=== PATIENT | male | born 1945 | race Caucasian/White ===

== ENCOUNTER 2021-12-25 10:41 | Outpatient (REF) | payer OTHER, SELFPAY ==
[2021-12-25 11:34] LABS: D Dimer High Sensitivity 280 NG/ML
== END 2021-12-25 10:42 | disposition home or self-care (01) ==
LOC: HO.LAB 10:41
PROVIDERS: Visit Provider Family Medicine
DX: M79.671 Pain in right foot (principal); M79.89 Other specified soft tissue disorders; R60.0 Localized edema
CPT/HCPCS: 36415; 85379

== ENCOUNTER 2021-12-28 14:54 | Outpatient (REF) | payer OTHER, SELFPAY ==
--- NOTE | ~2021-12-28 | US_ITS ---
EXAMINATION: US VENOUS ULTRASOUND WITH DOPPLER LOWER EXTREMITY, RIGHT CLINICAL INFORMATION: Swelling COMPARISON: None TECHNIQUE: Ultrasound of the deep veins is performed from the hip to the calf with compression sonography and color and pulse Doppler assessment. Spectral analysis with color-flow imaging is performed. FINDINGS: There is normal venous compression and respiratory variation and augmented flow. The visualized common femoral vein, superficial femoral vein, profunda femoral vein, popliteal vein, and the trifurcation region shows no evidence of deep venous thrombosis. There is no significant popliteal fossa cyst. US/US venous duplex LE RT IMPRESSION: No DVT demonstrated in the right lower extremity.
== END 2021-12-28 14:55 | disposition home or self-care (01) ==
LOC: HO.US 14:54
PROVIDERS: Visit Provider Family Medicine
DX: M79.89 Other specified soft tissue disorders (principal)
CPT/HCPCS: 93971

== ENCOUNTER 2022-05-28 17:40 | Inpatient (IN) | payer OTHER, SELFPAY ==
--- NOTE | ~2022-05-28 | CT_ITS ---
EXAMINATION: CT ABDOMEN AND PELVIS WITHOUT CONTRAST CLINICAL INFORMATION: Upper abdominal pain. COMPARISON: None TECHNIQUE: Multidetector volumetric imaging was performed from the superior aspect of the liver through the pubic symphysis. Sagittal and coronal reformatted images were obtained on the technologist's workstation. This CT examination was performed using dose optimization techniques as appropriate, variously including the following: *Automated exposure control *Adjustment of mA and/or kV according to patient size (this includes techniques or standardized protocols for targeted exams where dose is matched to indication/reason for exam; i.e. extremities or head) *Use of iterative reconstruction technique DLP: 1219 mGy-cm FINDINGS: LUNG BASES: There is large hiatal hernia. There is bilateral posterior pleural thickening and minimal atelectatic changes. There are pacer electrodes in the right atrium and right ventricle. The heart size is normal. LIVER, GALLBLADDER, AND BILIARY TREE: The liver is normal in size, shape, and attenuation. No focal hepatic lesion or biliary ductal dilatation is present. The gallbladder is unremarkable with no evidence of radiopaque gallstones, gallbladder wall thickening, or obvious pericholecystic inflammatory changes. PANCREAS: Unremarkable. SPLEEN: Unremarkable. ADRENAL GLANDS: Unremarkable. KIDNEYS AND URETERS: The kidneys are normal in size, shape, and attenuation. No hydronephrosis, hydroureter, or calculi seen. No perinephric stranding. BLADDER: Unremarkable. GASTROINTESTINAL TRACT: There is a moderate amount of stool and scattered diverticuli in the colon without distention or diverticulitis. The small bowel loops are normal caliber. Appendix is normal caliber. No inflammatory process seen in the abdomen. There is a fluid-filled enlarged stomach with large hiatal hernia. Half of the stomach appears to be within the herniation. Described that ABDOMINAL WALL: A small infraumbilical midline hernia containing fat is noted. The neck is 1.5 cm wide. There is a large left inguinal hernia containing a loop of sigmoid/descending colon. LYMPH NODES: No abnormal size lymph nodes seen. VASCULAR: Unremarkable. PELVIC VISCERA: There is large left inguinal hernia containing a loop of bowel. There is no free fluid. No abnormal pelvic or inguinal lymph nodes. OSSEOUS STRUCTURES: No aggressive lytic or sclerotic process seen. CT/CT abdomen pelvis wo con IMPRESSION: Moderately large hiatal hernia with half of the stomach are on top of the diaphragm and the other half milligrams of the diaphragm. There is a large left inguinal hernia containing sigmoid/descending colon. Small infraumbilical midline hernia containing intraperitoneal fat. Colonic diverticulosis without diverticulitis. Fleischner guidelines were followed.
--- NOTE | ~2022-05-28 | XR_ITS ---
EXAMINATION: XR CHEST CLINICAL INFORMATION: NG tube placement confirmation COMPARISON: 05/28/2022 TECHNIQUE: Frontal view of the chest was obtained. FINDINGS: Left chest wall pacer is unchanged. Cardiac leads overlie the chest. The enteric tube has been advanced. The tip is now likely below the diaphragm with the side-port above the level of the gastroesophageal junction. The lungs are well expanded. Bilateral airspace opacities remain, greatest in the retrocardiac region. There is a known large paraesophageal hernia. No pneumothorax. No significant pleural effusion. The cardiomediastinal silhouette is unchanged, with a calcified aorta. XR/XR chest 1V IMPRESSION: Advancement of the enteric tube. Evaluation of positioning is somewhat challenging given the known anatomy with the large parapharyngeal hernia. The tip of the tube likely extends below the diaphragm with the side-port above the level of the gastroesophageal junction. Continued advancement may be considered. Similar appearance of the lungs. Bilateral opacities.
--- NOTE | ~2022-05-28 | XR_ITS ---
EXAMINATION: XR CHEST CLINICAL INFORMATION: Advanced enteric tube. COMPARISON: None TECHNIQUE: 2 Frontal views of the chest was obtained. FINDINGS: There are 2 frontal views of the chest obtained. The first frontal view reveals an enteric tube tip in the mid esophagus. The next chest x-ray reveals advanced enteric tube with its tip in mid stomach. There are pacer electrodes in right atrium and right ventricle. There is mild cardiomegaly. There is bilateral linear interstitial opacities seen throughout both lungs likely interstitial edema or pneumonitis. Moderate elevation of left hemidiaphragm. A [id number] hiatal hernia is noted. No gross bony abnormality seen. XR/XR chest 1V IMPRESSION: 1. Two (2) chest frontal images obtained. The first image reveals tip of endotracheal tube in midesophagus. The second image reveals endotracheal tube tip in the mid stomach. 2. There is bilateral increase interstitial patchy opacity suspicious of pneumonitis or edema. 3. Cardiomegaly.
--- NOTE | ~2022-05-28 | XR_ITS ---
EXAMINATION: XR CHEST CLINICAL INFORMATION: Nasogastric tube placement COMPARISON: Previous chest x-ray 05/29/2022 and abdominal and pelvic CT scan 05/29/2022 TECHNIQUE: Frontal view of the chest was obtained. FINDINGS: There is a nasogastric tube that projects over the left medial lower chest. When compared with previous chest x-ray and CT scan this is likely in the large esophageal hernia or intrathoracic stomach. There is still distention of the stomach/hernia. There is a left subclavian pacemaker AICD devices that appear unchanged. Cardiac and mediastinal contours are stable. The right lung is clear. There is atelectasis or small infiltrate at the left lung base. There are small bilateral pleural effusions, left greater than right. There are degenerative changes of the spine. XR/XR chest 1V IMPRESSION: Nasogastric tube projects over the left lower medial chest probably in the esophageal hernia or intrathoracic stomach. There is still some dilatation of the hernia. Left base atelectasis or consolidation. Small bilateral pleural effusions, left greater than right.
[2022-05-28 18:01] VITALS: BP 152/83; PULSE 94; O2SAT 98; BMI 26.4
[2022-05-28 18:09] VITALS: BP 173/90; PULSE 100; RESP 20; TEMP 36.7; O2SAT 92
--- NOTE | 2022-05-28 18:19 | ED_ITS ---
HPI - Abdominal Pain General Chief Complaint: Abdominal Pain Stated Complaint: n/v constipation Time Seen by Provider: 05/28/22 18:18 Source: patient Mode of arrival: EMS Limitations: no limitations History of Present Illness HPI narrative: Patient with no significant prior abdominal complaints history of hiatal hernia been having upper abdominal pain for 2 weeks getting worse for last 1 week associated with nausea. Patient unable to eat much because of pain been constipated, vomited few times worse today also had dark stool today after taking Pepto-Bismol. History of kidney stone at age of 26 no urinary complaints no fever or chills no abdominal distension no history of any abdominal surgeries except for left inguinal hernia Related Data Home Medications Medication Instructions Recorded Confirmed atorvastatin 80 mg tablet 1 tab PO DAILY 05/28/22 05/28/22 azathioprine 50 mg tablet 2 tab PO DAILY 05/28/22 05/28/22 gabapentin 300 mg capsule 2 cap PO TID 05/28/22 05/28/22 isosorbide mononitrate 30 mg 1 tab PO DAILY 05/28/22 05/28/22 tablet,extended release 24 hr losartan 50 mg tablet 1 tab PO DAILY 05/28/22 05/28/22 nitroglycerin 0.4 mg sublingual 1 tab sublingual Q5M PRN Chest Pain 05/28/22 05/28/22 tablet Allergies Allergy/AdvReac Type Severity Reaction Status Date / Time No Known Allergies Allergy Verified 05/28/22 18:19 Review of Systems Review of Systems Yes all other systems are reviewed and are negative PMFSH Social History Social History Patient Tobacco Use Status: Never used Tobacco Use of substances other than those prescribed or required for medical reasons: No Advance Directives: No Advance Directives Information Provided: No Physical Exam ED Vital Signs: Vital Signs - 24 hr 05/28/22 18:09 05/28/22 20:39 Temperature 98.1 F 97.6 F Pulse Rate 100 118 H Respiratory Rate 20 19 Blood Pressure 173/90 H 154/91 H Pulse Oximetry 92 97 Oxygen Delivery Method Room Air Room Air BMI result Body Mass Index 26.4 Appearance: Alert. Oriented X3. In moderate distress. Eyes: No pallor or icterus ENT: Pharynx normal. Oral Mucosa moist Neck: Normal inspection. Neck supple. CVS: Normal heart rate and rhythm. Pulses normal. Respiratory: No respiratory distress. Equal air entry bilateral, no wheezing/rales/rhonchi Abdomen: Soft, tenderness in epigastric area with guarding, no pulsatile mass no rebound tenderness, Bowel sounds are present, no mass palpable, no CVA tenderness soft nontender left inguinal hernia Rectal: Dark color stool, guaiac positive Skin: Skin warm and dry. Normal skin color. Normal skin turgor. Extremities: No lower extremity edema. No calf tenderness Neuro: Oriented X 3. No motor deficit. MDM - Abdominal Pain MDM Narrative Medical decision making narrative: Patient with upper abdominal pain noticed to have significant big hiatal hernia slide in the chest. NG tube was placed which drained 1600 cc of blood tinged gastric fluid after that patient felt much better no signs of small-bowel obstruction as such rectal examination was done noticed to have large amount of stool in rectum dark color positive for guaiac will admit patient for hiatal hernia abdominal pain and GI bleed Lab Data Attestation: I reviewed the patient's lab results. Result diagrams: 05/28/22 18:52 05/28/22 18:52 Labs: Lab Results 05/28/22 05/28/22 05/28/22 Range/Units 18:52 18:52 18:52 WBC 10.9 H (4.8-10.8) X10*3/uL RBC 4.54 L (4.60-5.80) X10*6/uL Hgb 14.7 (14.0-18.0) g/dl Hct 42.9 (42.0-52.0) % MCV 94.5 (80.0-98.0) fL MCH 32.4 (27.0-33.0) pg MCHC 34.3 (31.0-36.0) g/dl RDW 14.2 (11.0-16.0) % Plt Count 211 (160-400) X10*3/uL MPV 9.9 (9.4-12.4) fL Immature Gran % (Auto) 0.6 H (0.0-0.4) % Neut % (Auto) 89.8 H (45-73) % Lymph % (Auto) 1.9 L (20-40) % Toombs % (Auto) 7.4 (2-11) % Eos % (Auto) 0.0 (0-4) % Baso % (Auto) 0.3 (0-2) % Lymph # (Auto) 0.2 L (1.2-4.9) X10*3/uL Toombs # (Auto) 0.8 (0.1-1.2) X10*3/uL Eos # (Auto) 0.0 (0.0-0.4) X10*3/uL Baso # (Auto) 0.0 (0.0-0.2) X10*3/uL Abs Immat Gran (auto) 0.07 H (0.00-0.03) X10*3/uL Absolute Neuts (auto) 9.8 H (2.0-8.3) x10*3/uL Absolute Nucleated RBC 0.000 (0.0-0.012) X10*3/uL Nucleated RBC % (auto) 0.0 (0.0-0.2) /100WBC PT (10.0-13.1) SEC INR (0.9-1.1) Sodium 139 (135-145) mmol/L Potassium 5.6 H (3.3-5.1) mmol/L Chloride 99 (96-108) mmol/L Carbon Dioxide 24 (22-29) mmol/L Anion Gap 22 H (12-20) BUN 13 (9-16) mg/dL Creatinine 1.29 (0.5-1.4) mg/dL Estim Creat Clear Calc 52.6 Estimated GFR 54 Random Glucose 159 H (60-115) mg/dL Lactic Acid 2.1 H* (0.5-2.0) mmol/L Lactic Acid F/U @ 2Hr (0.5-2.0) mmol/L Calcium 8.7 (8.4-10.2) mg/dL Total Bilirubin 1.5 H (0.0-1.0) mg/dL AST 52 H (5-37) U/L ALT 18 (0-40) U/L Alkaline Phosphatase 90 (39-117) U/L Troponin I High Sens (<3.5-35.0) ng/L Total Protein 7.2 (6.5-8.0) g/dL Albumin 3.8 (3.5-5.0) g/dL Lipase 11 (8-78) U/L Gastric Occult Blood (NEG) Stool Occult Blood (NEGATIVE) COVID-19 (JESENIA) (Negative) COVID-19 Clin Com 05/28/22 05/28/22 05/28/22 Range/Units 18:52 18:52 18:52 WBC (4.8-10.8) X10*3/uL RBC (4.60-5.80) X10*6/uL Hgb (14.0-18.0) g/dl Hct (42.0-52.0) % MCV (80.0-98.0) fL MCH (27.0-33.0) pg MCHC (31.0-36.0) g/dl RDW (11.0-16.0) % Plt Count (160-400) X10*3/uL MPV (9.4-12.4) fL Immature Gran % (Auto) (0.0-0.4) % Neut % (Auto) (45-73) % Lymph % (Auto) (20-40) % Toombs % (Auto) (2-11) % Eos % (Auto) (0-4) % Baso % (Auto) (0-2) % Lymph # (Auto) (1.2-4.9) X10*3/uL Toombs # (Auto) (0.1-1.2) X10*3/uL Eos # (Auto) (0.0-0.4) X10*3/uL Baso # (Auto) (0.0-0.2) X10*3/uL Abs Immat Gran (auto) (0.00-0.03) X10*3/uL Absolute Neuts (auto) (2.0-8.3) x10*3/uL Absolute Nucleated RBC (0.0-0.012) X10*3/uL Nucleated RBC % (auto) (0.0-0.2) /100WBC PT 12.1 (10.0-13.1) SEC INR 1.1 (0.9-1.1) Sodium (135-145) mmol/L Potassium (3.3-5.1) mmol/L Chloride (96-108) mmol/L Carbon Dioxide (22-29) mmol/L Anion Gap (12-20) BUN (9-16) mg/dL Creatinine (0.5-1.4) mg/dL Estim Creat Clear Calc Estimated GFR Random Glucose (60-115) mg/dL Lactic Acid (0.5-2.0) mmol/L Lactic Acid F/U @ 2Hr (0.5-2.0) mmol/L Calcium (8.4-10.2) mg/dL Total Bilirubin (0.0-1.0) mg/dL AST (5-37) U/L ALT (0-40) U/L Alkaline Phosphatase (39-117) U/L Troponin I High Sens 164.6 H* (<3.5-35.0) ng/L Total Protein (6.5-8.0) g/dL Albumin (3.5-5.0) g/dL Lipase (8-78) U/L Gastric Occult Blood (NEG) Stool Occult Blood (NEGATIVE) COVID-19 (JESENIA) Negative (Negative) COVID-19 Clin Com See Note 05/28/22 05/28/22 05/28/22 Range/Units 21:24 21:24 21:34 WBC (4.8-10.8) X10*3/uL RBC (4.60-5.80) X10*6/uL Hgb (14.0-18.0) g/dl Hct (42.0-52.0) % MCV (80.0-98.0) fL MCH (27.0-33.0) pg MCHC (31.0-36.0) g/dl RDW (11.0-16.0) % Plt Count (160-400) X10*3/uL MPV (9.4-12.4) fL Immature Gran % (Auto) (0.0-0.4) % Neut % (Auto) (45-73) % Lymph % (Auto) (20-40) % Toombs % (Auto) (2-11) % Eos % (Auto) (0-4) % Baso % (Auto) (0-2) % Lymph # (Auto) (1.2-4.9) X10*3/uL Toombs # (Auto) (0.1-1.2) X10*3/uL Eos # (Auto) (0.0-0.4) X10*3/uL Baso # (Auto) (0.0-0.2) X10*3/uL Abs Immat Gran (auto) (0.00-0.03) X10*3/uL Absolute Neuts (auto) (2.0-8.3) x10*3/uL Absolute Nucleated RBC (0.0-0.012) X10*3/uL Nucleated RBC % (auto) (0.0-0.2) /100WBC PT (10.0-13.1) SEC INR (0.9-1.1) Sodium (135-145) mmol/L Potassium (3.3-5.1) mmol/L Chloride (96-108) mmol/L Carbon Dioxide (22-29) mmol/L Anion Gap (12-20) BUN (9-16) mg/dL Creatinine (0.5-1.4) mg/dL Estim Creat Clear Calc Estimated GFR Random Glucose (60-115) mg/dL Lactic Acid (0.5-2.0) mmol/L Lactic Acid F/U @ 2Hr 1.6 (0.5-2.0) mmol/L Calcium (8.4-10.2) mg/dL Total Bilirubin (0.0-1.0) mg/dL AST (5-37) U/L ALT (0-40) U/L Alkaline Phosphatase (39-117) U/L Troponin I High Sens 143.4 H* (<3.5-35.0) ng/L Total Protein (6.5-8.0) g/dL Albumin (3.5-5.0) g/dL Lipase (8-78) U/L Gastric Occult Blood (NEG) Stool Occult Blood POSITIVE (NEGATIVE) COVID-19 ([facility]IA) (Negative) COVID-19 Clin Com 05/28/22 Range/Units 21:41 WBC (4.8-10.8) X10*3/uL RBC (4.60-5.80) X10*6/uL Hgb (14.0-18.0) g/dl Hct (42.0-52.0) % MCV (80.0-98.0) fL MCH (27.0-33.0) pg MCHC (31.0-36.0) g/dl RDW (11.0-16.0) % Plt Count (160-400) X10*3/uL MPV (9.4-12.4) fL Immature Gran % (Auto) (0.0-0.4) % Neut % (Auto) (45-73) % Lymph % (Auto) (20-40) % Toombs % (Auto) (2-11) % Eos % (Auto) (0-4) % Baso % (Auto) (0-2) % Lymph # (Auto) (1.2-4.9) X10*3/uL Toombs # (Auto) (0.1-1.2) X10*3/uL Eos # (Auto) (0.0-0.4) X10*3/uL Baso # (Auto) (0.0-0.2) X10*3/uL Abs Immat Gran (auto) (0.00-0.03) X10*3/uL Absolute Neuts (auto) (2.0-8.3) x10*3/uL Absolute Nucleated RBC (0.0-0.012) X10*3/uL Nucleated RBC % (auto) (0.0-0.2) /100WBC PT (10.0-13.1) SEC INR (0.9-1.1) Sodium (135-145) mmol/L Potassium (3.3-5.1) mmol/L Chloride (96-108) mmol/L Carbon Dioxide (22-29) mmol/L Anion Gap (12-20) BUN (9-16) mg/dL Creatinine (0.5-1.4) mg/dL Estim Creat Clear Calc Estimated GFR Random Glucose (60-115) mg/dL Lactic Acid (0.5-2.0) mmol/L Lactic Acid F/U @ 2Hr (0.5-2.0) mmol/L Calcium (8.4-10.2) mg/dL Total Bilirubin (0.0-1.0) mg/dL AST (5-37) U/L ALT (0-40) U/L Alkaline Phosphatase (39-117) U/L Troponin I High Sens (<3.5-35.0) ng/L Total Protein (6.5-8.0) g/dL Albumin (3.5-5.0) g/dL Lipase (8-78) U/L Gastric Occult Blood NEGATIVE (NEG) Stool Occult Blood (NEGATIVE) COVID-19 ([facility]) (Negative) COVID-19 Clin Com ECG Data Attestation: I personally reviewed and interpreted this ECG as follows: Interpretation: Ventricularly paced rhythm 105 beats per minute no acute ST-T changes Discharge Plan Discharge Clinical Impression: Large hiatal hernia, Acute GI bleeding, Abdominal pain Patient Disposition: Admitted As Inpatient
--- NOTE | 2022-05-28 18:26 | ECG_ITS ---
Test Reason : epig pain Blood Pressure : / mmHG Vent. Rate : 105 BPM Atrial Rate : 105 BPM P-R Int : 176 ms QRS Dur : 196 ms QT Int : 368 ms P-R-T Axes : 008 -48 103 degrees QTc Int : 486 ms Atrial-sensed ventricular-paced rhythm Abnormal ECG No previous ECGs available Referred By: Hunter Garza Electronically Signed By:SARAH MARIN
[2022-05-28] MEDS: Famotidine/PF 20 MG/2 ML VIAL IVPUSH (18:37)
[2022-05-28] MEDS: ondansetron HCL 4 MG/2 ML VIAL IVPUSH (18:37)
[2022-05-28] MEDS: Morphine Sulfate 4 MG/ML CARTRIDGE IVPUSH ×2 (18:37→20:03)
[2022-05-28] MEDS: 0.9 % Sodium Chloride 1,000 ML 999 ML IV ×2 (18:38→20:04)
[2022-05-28 19:02] LABS: MANUAL DIFF FLAG NO
[2022-05-28 19:06] LABS: Basophils Percent Auto 0.3 % (0-2); Hematocrit 42.9 % (42.0-52.0); Hemoglobin 14.7 g/dl (14.0-18.0); Imm Gran Abs Auto 0.07 X10*3/uL (0.00-0.03); Imm Gran Pct Auto 0.6 % (0.0-0.4); Lymphocytes Absolute Auto 0.2 X10*3/uL (1.2-4.9); Lymphocytes Percent Auto 1.9 % (20-40); Mean Corpuscular HGB Conc 34.3 g/dl (31.0-36.0); Mean Corpuscular Hemoglobin 32.4 pg (27.0-33.0); Mean Corpuscular Volume 94.5 fL (80.0-98.0); Mean Platelet Volume 9.9 fL (9.4-12.4); Monocytes Absolute Auto 0.8 X10*3/uL (0.1-1.2); Monocytes Percent Auto 7.4 % (2-11); Neutrophils Absolute Auto 9.8 x10*3/uL (2.0-8.3); Neutrophils Percent Auto 89.8 % (45-73); Platelet Count 211 X10*3/uL (160-400); Red Blood Count 4.54 X10*6/uL (4.60-5.80); Red Cell Distribution Width 14.2 % (11.0-16.0); White Blood Count 10.9 X10*3/uL (4.8-10.8)
[2022-05-28 19:18] LABS: INTERNATIONAL NORM RATIO 1.1 (0.9-1.1); Prothrombin Time 12.1 SEC (10.0-13.1)
[2022-05-28 19:21] LABS: COVID-19 Test Negative (Negative); IDNOW Serial# 9DB6401D
[2022-05-28 19:22] LABS: Lactic Acid 2.1 mmol/L (0.5-2.0)
[2022-05-28 19:30] LABS: Alanine Aminotransferase 18 U/L (0-40); Albumin Level 3.8 g/dL (3.5-5.0); Alkaline Phosphatase 90 U/L (39-117); Anion Gap 22 (12-20); Aspartate Amino Transferase 52 U/L (5-37); Bilirubin Total 1.5 mg/dL (0.0-1.0); Blood Urea Nitrogen 13 mg/dL (9-16); Calcium 8.7 mg/dL (8.4-10.2); Carbon Dioxide 24 mmol/L (22-29); Chloride 99 mmol/L (96-108); Creatinine Clr Calc Pharmacy 52.6; Estimated Glomerular Filt Rate 54; Glucose Random 159 mg/dL (60-115); Lipase 11 U/L (8-78); Potassium 5.6 mmol/L (3.3-5.1); Sodium 139 mmol/L (135-145); Total Protein 7.2 g/dL (6.5-8.0); Troponin-I High Sensitivity 164.6 ng/L (<3.5-35.0)
[2022-05-28] MEDS: Lidocaine HCl 4 % Laryng-O-Jet 4 ML 1 APPL TOPICAL (20:04)
[2022-05-28 20:39] VITALS: BP 154/91; PULSE 118; RESP 19; TEMP 36.4; O2SAT 97
[2022-05-28 20:59] LABS: Reflex Lactate? Lactic Acid Added
[2022-05-28 21:40] LABS: ~Lactic Acid-LAB USE ONLY 1.6 mmol/L (0.5-2.0)
[2022-05-28 21:41] LABS: OBS Int Ctl Valid YES; OBS1 POSITIVE (NEGATIVE)
[2022-05-28] MEDS: Pantoprazole Sodium 40 MG/10 ML VIAL 80 MG IVPUSH (21:46)
--- NOTE | 2022-05-28 21:50 | PHA.MEDREC ---
Pharmacy Consult ? Medication Reconciliation Pharmacy has completed the medication reconciliation. Pt states that he also take methylpred but does not remember strength, could not find on pt's fill history
[2022-05-28 21:52] LABS: Troponin-I High Sensitivity 143.4 ng/L (<3.5-35.0)
[2022-05-28 21:54] LABS: GASOB Int Neg Ctl Valid YES; GASOB Int Pos Ctl Valid YES; Occult Blood Gastric NEGATIVE (NEG)
[2022-05-28 22:14] VITALS: BP 132/77; PULSE 108; O2SAT 98
--- NOTE | 2022-05-28 22:14 | P.HPHOSP_ITS ---
History of Present Illness Date of Service: 05/28/22 Chief Complaint: nausea/vomiting 76-year-old male with a past medical history of CAD, CHF with EF of 25-30% status post AICD, myasthenia gravis, obesity, paraesophageal hernia, giant inguinal hernia presented to the hospital today with a chief complaint of nause a/vomiting/abdominal pain. Patient mentions that for the past 2 weeks he has been having nausea vomiting and poor oral intake. Also complains of abdominal pain. Denies any concerns for food poisoning. Mentions that his abdominal pain is located more so in the epigastrium. Had multiple episodes of nausea and vomiting. Today he had a large coffee-ground vomitus. Denies any melena or bright red blood per rectum. New denies any chest pain, shortness of breath, fever chills, cough or urinary symptoms. Review of all other systems is negative except mentioned above ER course: Per ER team patient had large hiatal hernia; status post NG placement with draining 1600 cc of coffee-ground emesis. Guaiac positive. Hemoglobin stable. Patient stool guaiac was also positive. Also had elevated troponins. But plate you had. EKG nonischemic. Patient denied chest pain. Admitted to the hospital for further management [facility] Medical History Cardiomyopathy Pertinent family history: Son : stacy corbin Social History Household Members: None Housing: Apartment Do you presently have visiting nurse or other home services: No Patient Tobacco Use Status: Never used Tobacco service: No Current occupational status: retired Meds Allergies Allergy/AdvReac Type Severity Reaction Status Date / Time Penicillins [PCN] Allergy Unknown Verified 05/29/22 07:30 Active Medications: Current Medications Pharmacy Consult (Consult Rx Perform Med Rec) 1 each MISCELLANE ONCE PRN PRN Reason: Consult order Home Medications Medication Instructions Recorded Confirmed Last Taken Type atorvastatin 80 mg tablet 1 tab PO DAILY 05/28/22 05/28/22 05/27/22 History azathioprine 50 mg tablet 2 tab PO DAILY 05/28/22 05/28/22 05/27/22 History gabapentin 300 mg capsule 2 cap PO TID 05/28/22 05/28/22 05/27/22 History isosorbide mononitrate 30 mg 1 tab PO DAILY 05/28/22 05/28/22 05/27/22 History tablet,extended release 24 hr losartan 50 mg tablet 1 tab PO DAILY 05/28/22 05/28/22 05/27/22 History nitroglycerin 0.4 mg sublingual 1 tab sublingual Q5M PRN Chest Pain 05/28/22 05/28/22 Unknown History tablet carvedilol 12.5 mg tablet 1 tab PO BID 05/29/22 05/29/22 Unknown History clindamycin HCl 300 mg capsule 1 cap PO TID 05/29/22 05/29/22 Unknown History hydrochlorothiazide 12.5 mg capsule 1 cap PO DAILY 05/29/22 05/29/22 Unknown History pyridostigmine bromide 60 mg tablet 1 tab PO TID 05/29/22 05/29/22 Unknown History Physical Exam Vital Signs and Narrative: Vital Signs: Last Vital Signs Temp 97.6 F 05/28/22 20:39 Pulse 118 H 05/28/22 20:39 Resp 19 05/28/22 20:39 BP 154/91 H 05/28/22 20:39 Pulse Ox 97 05/28/22 20:39 O2 Del Method 05/28/22 20:39 BMI result Body Mass Index 26.4 Gen: Appears be in no acute distress HEENT: NCAT, Moist mucosa. Pulmonary: Vesicular breath sounds, fair air entry CVS: Normal S1-S2 Abdomen: BS+, Soft, mildly tender in epigastrium, no guarding no rigidity Extremities: Warm well perfused Neuro: Alert and awake. Results Labs CBC and Chem 7: 05/31/22 10:33 05/31/22 10:33 Labs: Laboratory Results - last 24 hr 05/28/22 05/28/22 05/28/22 18:52 18:52 18:52 MCV 94.5 MCH 32.4 MCHC 34.3 RDW 14.2 Plt Count 211 MPV 9.9 Immature Gran % (Auto) 0.6 H Neut % (Auto) 89.8 H Lymph % (Auto) 1.9 L Robeson % (Auto) 7.4 Eos % (Auto) 0.0 Baso % (Auto) 0.3 Lymph # (Auto) 0.2 L Robeson # (Auto) 0.8 Eos # (Auto) 0.0 Baso # (Auto) 0.0 Abs Immat Gran (auto) 0.07 H Absolute Neuts (auto) 9.8 H Absolute Nucleated RBC 0.000 Nucleated RBC % (auto) 0.0 PT INR Anion Gap 22 H Estim Creat Clear Calc 52.6 Estimated GFR 54 Random Glucose 159 H Lactic Acid 2.1 H* Lactic Acid F/U @ 2Hr Calcium 8.7 Total Bilirubin 1.5 H AST 52 H ALT 18 Alkaline Phosphatase 90 Total Protein 7.2 Albumin 3.8 Lipase 11 Gastric Occult Blood Stool Occult Blood COVID-19 ([facility]IA) [employer] 05/28/22 05/28/22 05/28/22 18:52 18:52 21:24 MCV MCH MCHC RDW Plt Count MPV Immature Gran % (Auto) Neut % (Auto) Lymph % (Auto) Robeson % (Auto) Eos % (Auto) Baso % (Auto) Lymph # (Auto) Robeson # (Auto) Eos # (Auto) Baso # (Auto) Abs Immat Gran (auto) Absolute Neuts (auto) Absolute Nucleated RBC Nucleated RBC % (auto) PT 12.1 INR 1.1 Anion Gap Estim Creat Clear Calc Estimated GFR Random Glucose Lactic Acid Lactic Acid F/U @ 2Hr 1.6 Calcium Total Bilirubin AST ALT Alkaline Phosphatase Total Protein Albumin Lipase Gastric Occult Blood Stool Occult Blood COVID-19 ([place]ENIA) Negative [employer] See Note 05/28/22 05/28/22 21:34 21:41 MCV MCH MCHC RDW Plt Count MPV Immature Gran % (Auto) Neut % (Auto) Lymph % (Auto) Robeson % (Auto) Eos % (Auto) Baso % (Auto) Lymph # (Auto) Robeson # (Auto) Eos # (Auto) Baso # (Auto) Abs Immat Gran (auto) Absolute Neuts (auto) Absolute Nucleated RBC Nucleated RBC % (auto) PT INR Anion Gap Estim Creat Clear Calc Estimated GFR Random Glucose Lactic Acid Lactic Acid F/U @ 2Hr Calcium Total Bilirubin AST ALT Alkaline Phosphatase Total Protein Albumin Lipase Gastric Occult Blood NEGATIVE Stool Occult Blood POSITIVE COVID-19 ([place]IA) [facility] [place] Imaging Radiologist's Impressions: Impressions Abdomen/Pelvis CT 05/28/22 19:35 IMPRESSION: Moderately large hiatal hernia with half of the stomach are on top of the diaphragm and the other half milligrams of the diaphragm. There is a large left inguinal hernia containing sigmoid/descending colon. Small infraumbilical midline hernia containing intraperitoneal fat. Colonic diverticulosis without diverticulitis. Fleischner guidelines were followed. Assessment and Plan (1) Acute GI bleeding: Status: Acute Plan 76-year-old male with a past medical history of CAD, CHF with EF of 25-30% status post AICD, myasthenia gravis, obesity, paraesophageal hernia, giant inguinal hernia presented to the hospital today with a chief complaint of nausea/vomiting/abdominal pain. Noted to have following conditions: Coffee-ground emesis: H and H currently stable IV PPI NPO GI consult Serial H&H Patient also stool guaiac positive (brown stool in the rectal vault with guaiac positive per ER physician) Hold home aspirin Nausea/vomiting/abdominal pain: CT abdomen showed moderate large hiatal hernia with half of the stomach around the top of the diaphragm. CT also showed large inguinal hernia containing sigmoid and descending colon. Small infraumbilical midline hernia containing intraperitoneal fat. Patient reported that he has been passing gas. Will also consult General surgery for further recommendations. Elevated troponins: Patient had recent admission to the [facility] in January for unstable angina cardiac catheterization 01/2022-> which revealed right dominant coronary ci rculation, mid distal left main stenosis, moderate proximal left circumflex stenosis, moderate diffuse LAD disease, moderate RCA disease. Troponins plateaued Patient denies any chest pain Sublingual nitroglycerin p.r.n. Continue home statin, Imdur. Aspirin on hold for now until cleared by Gastroe nterology History of CHF: EF of 25-30% status post AICD currently euvolemic. Will continue to monitor History of myasthenia gravis: Continue home Azathioprine, Pyridostigmine DVT prophylaxis: SCD boots Code status: Full code Quality Stroke Does the patient have a stroke diagnosis?: No VTE Prior VTE?: No VTE Risk Level:: Medical - moderate - high VTE Device Contraindication: N/A - Device Ordered VTE Drug Contraindication: Treatment Not Indicated
[2022-05-28] MEDS: 0.9 % Sodium Chloride 1,000 ML 50 ML IVCONT (22:36)
--- NOTE | 2022-05-28 22:39 | PC.NURSE ---
pt requesting home medication of gabapentin, pt educated that he is NPO with NG tube, and that we can give him IV medications for pain instead.
[2022-05-28] MEDS: HYDROmorphone HCl 0.5 MG/0.5 ML SYRINGE IVPUSH (23:31)
[2022-05-28 23:45] LABS: Prostate Specific Antigen 0.38 ng/mL (<0.05-4.0)
[2022-05-29 04:35] LABS: MANUAL DIFF FLAG NO
[2022-05-29 04:36] LABS: Basophils Percent Auto 0.2 % (0-2); Eosinophils Percent Auto 0.2 % (0-4); Imm Gran Abs Auto 0.05 X10*3/uL (0.00-0.03); Imm Gran Pct Auto 0.6 % (0.0-0.4); Lymphocytes Absolute Auto 0.5 X10*3/uL (1.2-4.9); Lymphocytes Percent Auto 5.8 % (20-40); Mean Corpuscular HGB Conc 33.3 g/dl (31.0-36.0); Mean Corpuscular Hemoglobin 32.1 pg (27.0-33.0); Mean Corpuscular Volume 96.3 fL (80.0-98.0); Mean Platelet Volume 9.8 fL (9.4-12.4); Monocytes Absolute Auto 1.1 X10*3/uL (0.1-1.2); Monocytes Percent Auto 11.7 % (2-11); Neutrophils Absolute Auto 7.4 x10*3/uL (2.0-8.3); Neutrophils Percent Auto 81.5 % (45-73); Platelet Count 171 X10*3/uL (160-400); Red Blood Count 3.74 X10*6/uL (4.60-5.80); Red Cell Distribution Width 14.4 % (11.0-16.0); White Blood Count 9.1 X10*3/uL (4.8-10.8)
[2022-05-29 04:55] LABS: Anion Gap 16 (12-20); Blood Urea Nitrogen 14 mg/dL (9-16); Carbon Dioxide 26 mmol/L (22-29); Chloride 102 mmol/L (96-108); Estimated Glomerular Filt Rate > 60; Glucose Random 116 mg/dL (60-115); Potassium 4.7 mmol/L (3.3-5.1); Sodium 139 mmol/L (135-145)
[2022-05-29 05:01] LABS: Calcium 7.7 mg/dL (8.4-10.2)
[2022-05-29 05:24] VITALS: BP 138/66; PULSE 90; RESP 17; TEMP 36.7; O2SAT 96
[2022-05-29 05:42] LABS: Appearance Urine Clear; Color Urine DK YELLOW; Glucose Urine UA Negative (Negative); Leukocyte Esterase Urine Negative (Negative); Nitrite Urine Negative (Negative); Urine Blood Trace (Negative); Urine Ketones Trace mg/dL (Negative); Urine Protein 30 (1+) mg/dL (Neg-Trace)
[2022-05-29 05:49] LABS: Bacteria Urine None Seen (None Seen); RBC Urine 0-2 /HPF (0-2); Squamous Epithelial Cell Urine 0-2 /HPF (0-2); WBC Urine 0-5 /HPF (0-5)
[2022-05-29 05:50] LABS: Hyaline Casts Urine 0-2 /LPF (0-2)
[2022-05-29] MEDS: Pantoprazole Sodium 40 MG/10 ML VIAL IVPUSH ×2 (05:55→18:22)
[2022-05-29] MEDS: HYDROmorphone HCl 0.5 MG/0.5 ML SYRINGE IVPUSH ×2 (05:56→14:11)
--- NOTE | 2022-05-29 06:06 | PC.NURSE ---
pt NG tube came unsecured during sleep, this RN and RN Edgar at bedside to advance tube and re-secure, MD aware, portable chest xray at bedside
--- NOTE | 2022-05-29 06:43 | PC.NURSE ---
post NG chest xray showed consider advancement, tube advanced, MD aware, per MD repeat chest xray
[2022-05-29] MEDS: 0.9 % Sodium Chloride Flush 3 ML SYRINGE IVFLUSH (07:16)
--- NOTE | 2022-05-29 07:16 | PC.NURSE ---
Handoff received. Pt is in bed alert and oriented x 3. Heart sounds are regular. Breath sounds are clear bilaterally. Breathing is equal and non labored. Abd is non tender with active bowel sounds in all quadrants. Pt expresses concerns regarding ng tube, reports throat pain. NG tube in place with 200cc output of dark brown liquid. Awaiting xray for placement confirmation. Pt aware of plan of care.
[2022-05-29 07:31] VITALS: BP 152/78; PULSE 90; RESP 13; TEMP 36.9; O2SAT 91
--- NOTE | 2022-05-29 07:59 | PM.GICN ---
History of Present Illness Data of Consult Service Date: 05/29/22 Requesting physician: Alphonse Pugh Primary Care Provider: Unknown Physician HPI Reason for consult: coffee ground emesis 76-year-old male with a past medical history of CAD, CHF with EF of 25-30% status post AICD, myasthenia gravis, obesity, paraesophageal hernia, inguinal hernia who I am seeing for assessment for coffee ground emesis. Patient has been having nausea, and emesis for 2 weeks, initially not bloody associated with poor intake. He also noted epigastric pain and discomfort which was severe but now relieved by placement of NGT with >1000 ml of fluid suctioned. He denies constipation, diarrhea, no melena. denies chest pain, shortness of breath, fever chills, cough or urinary symptoms.? He has not seen neurologist for a while, can;t recall name of his prior GI doctor at [facility]. PMH: CAD, CHF with EF of 25-30% status post AICD, myasthenia gravis, obesity, paraesophageal hernia, inguinal hernia Imaging: Large hiatal hernia, large inguinal hernia on the left, diverticulosis. Labs: HGB 14--->12 g/dl nt Review of Systems Review of Systems: Constitutional : No Weight loss, No Fever, No Chills ENT/Mouth : + sore throat, No Rhinorrhea Eyes: No Swelling, No Redness Cardiovascular : No Chest Pain, No SOB, No Edema Respiratory : No Cough, No Sputum, No Wheezing Gastrointestinal : see HPI Genitourinary : NO Dysuria, No Urinary Frequency, No Hematuria, No Urgency Musculoskeletal : No joint pain, No Myalgias, No Joint Swelling Skin : No Skin Lesions, No rash Neuro : No Weakness, No Numbness, No Dizziness, No Headache Psych : No Anxiety/Panic, No Depression Heme/Lymph: No Bruising, No Lymphadenopathy Endocrine : No Polyuria, No Polydipsia All other systems reviewed and are negative. [facility] Family History Pertinent family history: Son : stacy corbin Social History Social History Patient Tobacco Use Status: Never used Tobacco Use of substances other than those prescribed or required for medical reasons: No Advance Directives: No Advance Directives Information Provided: No Meds Allergies Allergy/AdvReac Type Severity Reaction Status Date / Time Penicillins [PCN] Allergy Unknown Verified 05/29/22 07:30 Active Medications: Current Medications Acetaminophen (Acetaminophen 325 Mg Tablet) 650 mg PO Q6H PRN PRN Reason: Pain, Mild (Pain Scale 1-3) Hydromorphone HCl (Hydromorphone Hcl 0.5 Mg/0.5 Ml Syringe) 0.5 mg IVPUSH Q4H PRN; Protocol PRN Reason: Breakthrough Pain Last Admin: 05/29/22 05:56 Dose: 0.5 mg Sodium Chloride (Ns) 1,000 mls @ 50 mls/hr IVCONT .Q20H [facility] Last Admin: 05/28/22 22:36 Dose: 50 mls/hr Melatonin (Melatonin 3 Mg Tablet) 6 mg PO BEDTIME PRN PRN Reason: Insomnia Ondansetron HCl (Ondansetron Hcl 4 Mg/2 Ml Vial) 4 mg IVPUSH Q8H PRN PRN Reason: Nausea and Vomiting Pantoprazole Sodium (Pantoprazole Sodium 40 Mg/10 Ml Vial) 40 mg IVPUSH BID@0630,1630 [facility] Last Admin: 05/29/22 05:55 Dose: 40 mg Pharmacy Consult (Consult Rx Perform Med Rec) 1 each MISCELLANE ONCE PRN PRN Reason: Consult order Senna (Sennosides 8.6 Mg Tablet) 17.2 mg PO BEDTIME PRN PRN Reason: Constipation Sodium Chloride (0.9 % Sodium Chloride Flush 3 Ml Syringe) 3 ml IVFLUSH QSHIFT [facility] Last Admin: 05/29/22 07:16 Dose: 3 ml Home Medications Medication Instructions Recorded Confirmed Last Taken Type atorvastatin 80 mg tablet 1 tab PO DAILY 05/28/22 05/28/22 05/27/22 History azathioprine 50 mg tablet 2 tab PO DAILY 05/28/22 05/28/22 05/27/22 History gabapentin 300 mg capsule 2 cap PO TID 05/28/22 05/28/22 05/27/22 History isosorbide mononitrate 30 mg 1 tab PO DAILY 05/28/22 05/28/22 05/27/22 History tablet,extended release 24 hr losartan 50 mg tablet 1 tab PO DAILY 05/28/22 05/28/22 05/27/22 History nitroglycerin 0.4 mg sublingual 1 tab sublingual Q5M PRN Chest Pain 05/28/22 05/28/22 Unknown History tablet carvedilol 12.5 mg tablet 1 tab PO BID 05/29/22 05/29/22 Unknown History clindamycin HCl 300 mg capsule 1 cap PO TID 05/29/22 05/29/22 Unknown History gabapentin 300 mg capsule cap PO 05/29/22 Unknown History gabapentin 300 mg capsule cap PO 05/29/22 Unknown History hydrochlorothiazide 12.5 mg capsule 1 cap PO DAILY 05/29/22 05/29/22 Unknown History pyridostigmine bromide 60 mg tablet 1 tab PO TID 05/29/22 05/29/22 Unknown History Physical Exam Vital Signs: Vital Signs: Last Vital Signs Temp 98.5 F 05/29/22 07:31 Pulse 90 05/29/22 07:31 Resp 13 05/29/22 07:31 BP 152/78 H 05/29/22 07:31 Pulse Ox 91 L 05/29/22 07:31 O2 Del Method 05/29/22 07:31 O2 Flow Rate 3 05/29/22 07:31 BMI result Body Mass Index 26.4 EXAM: GENERAL: The patient is dishevelled, talking easily VITAL SIGNS:see workflow HEENT: Nonicteric sclerae, PERRLA, EOMI. Oropharynx clear. Moist mucous membranes. Conjunctivae appear well perfused. No thyroid mass. CHEST: Chest wall is nontender. HEART: Regular rate and rhythm without murmurs. LUNGS: Clear to auscultation bilaterally. ABDOMEN: Soft, positive bowel sounds, mildly tender epigastrium, no organomegaly.no flank tenderness SKIN: No rash, no excessive bruising, petechiae, or purpura. NEUROLOGIC: Cranial nerves II-XII intact without motor/sensory deficit. psych: nml affect Results Labs CBC & Chem 7: 05/29/22 04:13 05/29/22 04:13 Labs: Short CBC 05/28/22 05/29/22 Range/Units 18:52 04:13 WBC 10.9 H 9.1 (4.8-10.8) X10*3/uL Hgb 14.7 12.0 L (14.0-18.0) g/dl Hct 42.9 36.0 L (42.0-52.0) % Plt Count 211 171 (160-400) X10*3/uL BMP 05/28/22 05/29/22 18:52 04:13 Sodium 139 139 Potassium 5.6 H 4.7 Chloride 99 102 Carbon Dioxide 24 26 BUN 13 14 Creatinine 1.29 0.97 Calcium 8.7 7.7 L D Liver Function 05/28/22 Range/Units 18:52 Total Bilirubin 1.5 H (0.0-1.0) mg/dL AST 52 H (5-37) U/L ALT 18 (0-40) U/L Alkaline Phosphatase 90 (39-117) U/L Albumin 3.8 (3.5-5.0) g/dL Urine 05/29/22 Range/Units 05:30 Urine Color DK YELLOW Urine Appearance Clear Urine pH 7.0 (5.0-8.0) Ur Specific [place] 1.020 (1.005-1.025) Urine Protein 30 (1+) H (Neg-Trace) mg/dL Urine Glucose (UA) Negative (Negative) mg/dL Imaging CT scan - abdomen: Attestation: I personally reviewed and interpreted this imaging study as follows: My impression: large hiatal hernia and inguinal hernia noted Assessment and Plan (1) Large hiatal hernia: Status: Acute (2) Acute GI bleeding: Status: Acute Plan 1/ Persistent nausea, vomiting, pain with large paresophageal hernia with 1600 cc of fluid aspirated. Concern is incarcerated and twisted hiatal hernia. PLAN: 1/ Recommend thoracic surgery consult today for further assessment in case needs surgical therapy 2/ would hold off on EGD, if really needs diagnostic testing then ba swallow and follow thru 3/ optimize cardiac and neurological status, given co morbidities, higher chance of surgical risk, has had plasmapharesis in past for MG. 4/ would keep on PPI e.g IV pantoprazole 40 mg BID Procedures Date of Service Date of Service: 05/29/22
[2022-05-29 10:08] VITALS: BP 140/64; PULSE 89; RESP 12; O2SAT 95
--- NOTE | 2022-05-29 10:17 | HO.PM.IMPN ---
Subjective Subjective Date of Service: 05/29/22 Interval History: Seen in f/u for abdominal pain, n/v, hiatal hernia, gib interval history: large amount of fluid return from stomach, NGT is iritating Review of Systems no abominal, no confusion Physical Exam Vital Signs: Vital Signs: Last Vital Signs Temp 98.5 F 05/29/22 07:31 Pulse 89 05/29/22 10:08 Resp 12 05/29/22 10:08 BP 140/64 H 05/29/22 10:08 Pulse Ox 95 05/29/22 10:08 O2 Del Method 05/29/22 10:08 O2 Flow Rate 3 05/29/22 10:08 BMI result Body Mass Index 26.4 Const: Other: General: AO X 3, no acute distress HEENT: NGT in with signficant drainage Resp: CTA bilateral CVS: S1,S2,RRR GI: +BS, NT, no distention Skin: No rash Neuro: motor grossly intact Psych: appropriate affect Objective Data Active Medications Acetaminophen (Acetaminophen 325 Mg Tablet) 650 mg PO Q6H PRN PRN Reason: Pain, Mild (Pain Scale 1-3) Hydromorphone HCl (Hydromorphone Hcl 0.5 Mg/0.5 Ml Syringe) 0.5 mg IVPUSH Q4H PRN; Protocol PRN Reason: Breakthrough Pain Last Admin: 05/29/22 05:56 Dose: 0.5 mg Documented By: FILEMON Sodium Chloride (Ns) 1,000 mls @ 50 mls/hr IVCONT .Q20H [facility] Last Admin: 05/28/22 22:36 Dose: 50 mls/hr Documented By: RYAN Melatonin (Melatonin 3 Mg Tablet) 6 mg PO BEDTIME PRN PRN Reason: Insomnia Ondansetron HCl (Ondansetron Hcl 4 Mg/2 Ml Vial) 4 mg IVPUSH Q8H PRN PRN Reason: Nausea and Vomiting Pantoprazole Sodium (Pantoprazole Sodium 40 Mg/10 Ml Vial) 40 mg IVPUSH BID@0630,1630 [facility] Last Admin: 05/29/22 05:55 Dose: 40 mg Documented By: FILEMON Pharmacy Consult (Consult Rx Perform Med Rec) 1 each MISCELLANE ONCE PRN PRN Reason: Consult order Senna (Sennosides 8.6 Mg Tablet) 17.2 mg PO BEDTIME PRN PRN Reason: Constipation Sodium Chloride (0.9 % Sodium Chloride Flush 3 Ml Syringe) 3 ml IVFLUSH QSHIFT [facility] Last Admin: 05/29/22 07:16 Dose: 3 ml Documented By: IVIS Labs CBC & Chem 7: 05/29/22 04:13 05/29/22 04:13 Labs: Laboratory Results - last 24 hr 05/28/22 05/28/22 05/28/22 18:52 18:52 18:52 MCV 94.5 MCH 32.4 MCHC 34.3 RDW 14.2 Plt Count 211 MPV 9.9 Immature Gran % (Auto) 0.6 H Neut % (Auto) 89.8 H Lymph % (Auto) 1.9 L [place] % (Auto) 7.4 Eos % (Auto) 0.0 Baso % (Auto) 0.3 Lymph # (Auto) 0.2 L [place] # (Auto) 0.8 Eos # (Auto) 0.0 Baso # (Auto) 0.0 Abs Immat Gran (auto) 0.07 H Absolute Neuts (auto) 9.8 H Absolute Nucleated RBC 0.000 Nucleated RBC % (auto) 0.0 PT INR Anion Gap 22 H Estim Creat Clear Calc 52.6 Estimated GFR 54 Random Glucose 159 H Lactic Acid 2.1 H* Lactic Acid F/U @ 2Hr Calcium 8.7 Total Bilirubin 1.5 H AST 52 H ALT 18 Alkaline Phosphatase 90 Total Protein 7.2 Albumin 3.8 Lipase 11 Prostate Specific Ag 0.38 Urine Color Urine Appearance Urine pH Ur Specific [place] Urine Protein Urine Glucose (UA) Urine Ketones Urine Blood Urine Nitrite Ur Leukocyte Esterase Urine RBC Urine WBC Ur Squamous Epith Cells Urine Bacteria Hyaline Casts Gastric Occult Blood Stool Occult Blood COVID-19 ([facility]) COVID-19 Clin Com 05/28/22 05/28/22 05/28/22 18:52 18:52 21:24 MCV MCH MCHC RDW Plt Count MPV Immature Gran % (Auto) Neut % (Auto) Lymph % (Auto) [place] % (Auto) Eos % (Auto) Baso % (Auto) Lymph # (Auto) [place] # (Auto) Eos # (Auto) Baso # (Auto) Abs Immat Gran (auto) Absolute Neuts (auto) Absolute Nucleated RBC Nucleated RBC % (auto) PT 12.1 INR 1.1 Anion Gap Estim Creat Clear Calc Estimated GFR Random Glucose Lactic Acid Lactic Acid F/U @ 2Hr 1.6 Calcium Total Bilirubin AST ALT Alkaline Phosphatase Total Protein Albumin Lipase Prostate Specific Ag Urine Color Urine Appearance Urine pH Ur Specific [place] Urine Protein Urine Glucose (UA) Urine Ketones Urine Blood Urine Nitrite Ur Leukocyte Esterase Urine RBC Urine WBC Ur Squamous Epith Cells Urine Bacteria Hyaline Casts Gastric Occult Blood Stool Occult Blood COVID-19 ([facility]) Negative COVID-19 Clin Com See Note 05/28/22 05/28/22 05/29/22 21:34 21:41 04:13 MCV 96.3 MCH 32.1 MCHC 33.3 RDW 14.4 Plt Count 171 MPV 9.8 Immature Gran % (Auto) 0.6 H Neut % (Auto) 81.5 H Lymph % (Auto) 5.8 L [place] % (Auto) 11.7 H Eos % (Auto) 0.2 Baso % (Auto) 0.2 Lymph # (Auto) 0.5 L [place] # (Auto) 1.1 Eos # (Auto) 0.0 Baso # (Auto) 0.0 Abs Immat Gran (auto) 0.05 H Absolute Neuts (auto) 7.4 Absolute Nucleated RBC 0.000 Nucleated RBC % (auto) 0.0 PT INR Anion Gap Estim Creat Clear Calc Estimated GFR Random Glucose Lactic Acid Lactic Acid F/U @ 2Hr Calcium Total Bilirubin AST ALT Alkaline Phosphatase Total Protein Albumin Lipase Prostate Specific Ag Urine Color Urine Appearance Urine pH Ur Specific [place] Urine Protein Urine Glucose (UA) Urine Ketones Urine Blood Urine Nitrite Ur Leukocyte Esterase Urine RBC Urine WBC Ur Squamous Epith Cells Urine Bacteria Hyaline Casts Gastric Occult Blood NEGATIVE Stool Occult Blood POSITIVE COVID-19 ([facility]) COVID-19 Clin Com 05/29/22 05/29/22 04:13 05:30 MCV MCH MCHC RDW Plt Count MPV Immature Gran % (Auto) Neut % (Auto) Lymph % (Auto) [place] % (Auto) Eos % (Auto) Baso % (Auto) Lymph # (Auto) [place] # (Auto) Eos # (Auto) Baso # (Auto) Abs Immat Gran (auto) Absolute Neuts (auto) Absolute Nucleated RBC Nucleated RBC % (auto) PT INR Anion Gap 16 Estim Creat Clear Calc 70.0 Estimated GFR > 60 Random Glucose 116 H Lactic Acid Lactic Acid F/U @ 2Hr Calcium 7.7 L D Total Bilirubin AST ALT Alkaline Phosphatase Total Protein Albumin Lipase Prostate Specific Ag Urine Color DK YELLOW Urine Appearance Clear Urine pH 7.0 Ur Specific [place] 1.020 Urine Protein 30 (1+) H Urine Glucose (UA) Negative Urine Ketones Trace Urine Blood Trace Urine Nitrite Negative Ur Leukocyte Esterase Negative Urine RBC 0-2 Urine WBC 0-5 Ur Squamous Epith Cells 0-2 Urine Bacteria None Seen Hyaline Casts 0-2 Gastric Occult Blood Stool Occult Blood COVID-19 ([facility]) COVID-19 Clin Com Assessment and Plan (1) Large hiatal hernia: Status: Acute (2) Acute GI bleeding: Status: Acute (3) Abdominal pain: Status: Acute Plan 76-year-old male with a past medical history of CAD, CHF with EF of 25-30% status post AICD, myasthenia gravis, obesity, paraesophageal hernia, giant inguinal hernia presented to the hospital today with a chief complaint of nausea/vomiting/abdominal pain.? Noted to have following conditions: Coffee-ground emesis: H and H currently stable IV PPI NPO GI consult Serial H&H Patient also stool guaiac positive (brown stool in the rectal vault with guaiac positive per ER physician) Seen by Dr. Robison with the following 1/ Recommend thoracic surgery consult today for further assessment in case needs surgical therapy 2/ would hold off on EGD, if really needs diagnostic testing then ba swallow and follow thru 3/ optimize cardiac and neurological status, given co morbidities, higher chance of surgical risk, has had plasmapharesis in past for MG. 4/ would keep on PPI e.g IV pantoprazole 40 mg BID Nausea/vomiting/abdominal pain: ???CT abdomen showed moderate large hiatal hernia with half of the stomach around the top of the diaphragm. CT also showed large inguinal hernia containing sigmoid and descending colon.? Small infraumbilical midline hernia containing intraperitoneal fat. Patient reported that he has been passing gas.? Surgery and thoracic surgery consult. continue NGT Elevated troponins:--trended down, cardiology recommends no further w/u History of Myastenia G... continue meds and consider Neuro consult History of CHF:? EF of 25-30% status post AICD currently euvolemic.? Will continue to monitor History of myasthenia gravis:? Continue home Azathioprine, Pyridostigmine ? DVT prophylaxis: SCD boots Code status: Full code Quality Stroke Does the patient have a stroke diagnosis?: No VTE Prior VTE?: No VTE Risk Level:: Medical - moderate - high VTE Device Contraindication: N/A - Device Ordered VTE Drug Contraindication: Treatment Not Indicated
--- NOTE | 2022-05-29 10:45 | P.CONCA_ITS ---
History of Present Illness History of Present Illness Date of Service: 05/29/22 Requesting physician: Luis Sidhu Chief complaint: Coffee ground emesis, elevated troponin Narrative: 76-year-old gentleman who has background history of myasthenia gravis, obesity, anterior wall myocardial infarction in July 2008 when he had bare metal stent placed followed by a subacute strength thrombosis this 2nd bare metal stent placed distally. He has dilated ventricular with ejection fraction 25 30% and has primary prevention ICD placed in 2008 with degenerative change 2015. He also has a large hiatal hernia. He had cardiac catheterization in January 2022 which showed [id number] disease in LAD, circumflex and proximal right coronary artery. He has been on baby aspirin. He is presenting with epigastric pain ongoing for couple days followed by coffee-ground emesis. He currently has an NG tube in place. His complaining of significant choking sensation. He had abdominal distension which has improved after NG decompression. No chest pain. He is saying he was short of breath but was also in a lot of pain in the abdomen. Is high sensitive troponin levels are mildly abnormal. EKG is paced. [facility] Past Medical History Medical History (Updated 05/29/22 @ 13:25 by Renny Pace MD) Cardiomyopathy Social History Social History Patient Tobacco Use Status: Never used Tobacco Use of substances other than those prescribed or required for medical reasons: No Advance Directives: No Advance Directives Information Provided: No Meds Allergies Allergy/AdvReac Type Severity Reaction Status Date / Time Penicillins [PCN] Allergy Unknown Verified 05/29/22 07:30 Active Medications: Current Medications Acetaminophen (Acetaminophen 325 Mg Tablet) 650 mg PO Q6H PRN PRN Reason: Pain, Mild (Pain Scale 1-3) Atorvastatin Calcium (Atorvastatin Calcium 80 Mg Tablet) 80 mg PO DAILY FREDY Gabapentin (Gabapentin 300 Mg Capsule) 600 mg PO TID FREDY Hydrochlorothiazide (Hydrochlorothiazide 12.5 Mg Tablet) 12.5 mg PO DAILY FREDY; Protocol Hydromorphone HCl (Hydromorphone Hcl 0.5 Mg/0.5 Ml Syringe) 0.5 mg IVPUSH Q4H PRN; Protocol PRN Reason: Breakthrough Pain Last Admin: 05/29/22 05:56 Dose: 0.5 mg Sodium Chloride (Ns) 1,000 mls @ 50 mls/hr IVCONT .Q20H [facility] Last Admin: 05/28/22 22:36 Dose: 50 mls/hr Isosorbide Mononitrate (Isosorbide Mononitrate 30 Mg Tab.Er.24h) 30 mg PO DAILY [facility]; Protocol Losartan Potassium (Losartan Potassium 50 Mg Tablet) 50 mg PO DAILY [facility]; Protocol Melatonin (Melatonin 3 Mg Tablet) 6 mg PO BEDTIME PRN PRN Reason: Insomnia Nitroglycerin (Nitroglycerin 0.4 Mg Tab.Subl) 0.4 mg SUBLINGUAL Q5M PRN PRN Reason: Chest Pain Ondansetron HCl (Ondansetron Hcl 4 Mg/2 Ml Vial) 4 mg IVPUSH Q8H PRN PRN Reason: Nausea and Vomiting Pantoprazole Sodium (Pantoprazole Sodium 40 Mg/10 Ml Vial) 40 mg IVPUSH BID@0630,1630 [facility] Last Admin: 05/29/22 05:55 Dose: 40 mg Pharmacy Consult (Consult Rx Perform Med Rec) 1 each MISCELLANE ONCE PRN PRN Reason: Consult order Pyridostigmine [place] (Pyridostigmine [place] 60 Mg Tablet) 60 mg PO TID [facility] Senna (Sennosides 8.6 Mg Tablet) 17.2 mg PO BEDTIME PRN PRN Reason: Constipation Sodium Chloride (0.9 % Sodium Chloride Flush 3 Ml Syringe) 3 ml IVFLUSH QSHIFT [facility] Last Admin: 05/29/22 07:16 Dose: 3 ml Home Medications Medication Instructions Recorded Confirmed Last Taken Type atorvastatin 80 mg tablet 1 tab PO DAILY 05/28/22 05/28/22 05/27/22 History azathioprine 50 mg tablet 2 tab PO DAILY 05/28/22 05/28/22 05/27/22 History gabapentin 300 mg capsule 2 cap PO TID 05/28/22 05/28/22 05/27/22 History isosorbide mononitrate 30 mg 1 tab PO DAILY 05/28/22 05/28/22 05/27/22 History tablet,extended release 24 hr losartan 50 mg tablet 1 tab PO DAILY 05/28/22 05/28/22 05/27/22 History nitroglycerin 0.4 mg sublingual 1 tab sublingual Q5M PRN Chest Pain 05/28/22 05/28/22 Unknown History tablet carvedilol 12.5 mg tablet 1 tab PO BID 05/29/22 05/29/22 Unknown History clindamycin HCl 300 mg capsule 1 cap PO TID 05/29/22 05/29/22 Unknown History hydrochlorothiazide 12.5 mg capsule 1 cap PO DAILY 05/29/22 05/29/22 Unknown History pyridostigmine bromide 60 mg tablet 1 tab PO TID 05/29/22 05/29/22 Unknown History Physical Exam Vital Signs: Vital Signs: Last Vital Signs Temp 98.5 F 05/29/22 07:31 Pulse 89 05/29/22 10:08 Resp 12 05/29/22 10:08 BP 140/64 H 05/29/22 10:08 Pulse Ox 95 05/29/22 10:08 O2 Del Method 05/29/22 10:08 O2 Flow Rate 3 05/29/22 10:08 BMI result Body Mass Index 26.4 GENERAL APPEARANCE: Distressed due to NG tube. NECK: no carotid bruit, no jugular venous distention. SKIN: no suspicious lesions, warm and dry. HEART: no murmurs, regular rate and rhythm. LUNGS: clear to auscultation bilaterally. ABDOMEN: soft, nontender. EXTREMITIES: no edema. PERIPHERAL PULSES: equal. NEUROLOGIC: No gross deficits, AAO X 3 Objective Labs and Meds Result diagrams: 05/29/22 04:13 05/29/22 04:13 Lab results: Laboratory Results - last 24 hr 05/28/22 05/28/22 05/28/22 18:52 18:52 18:52 WBC 10.9 H RBC 4.54 L Hgb 14.7 Hct 42.9 MCV 94.5 MCH 32.4 MCHC 34.3 RDW 14.2 Plt Count 211 MPV 9.9 Immature Gran % (Auto) 0.6 H Neut % (Auto) 89.8 H Lymph % (Auto) 1.9 L [place] % (Auto) 7.4 Eos % (Auto) 0.0 Baso % (Auto) 0.3 Lymph # (Auto) 0.2 L [place] # (Auto) 0.8 Eos # (Auto) 0.0 Baso # (Auto) 0.0 Abs Immat Gran (auto) 0.07 H Absolute Neuts (auto) 9.8 H Absolute Nucleated RBC 0.000 Nucleated RBC % (auto) 0.0 PT INR Sodium 139 Potassium 5.6 H Chloride 99 Carbon Dioxide 24 Anion Gap 22 H BUN 13 Creatinine 1.29 Estim Creat Clear Calc 52.6 Estimated GFR 54 Random Glucose 159 H Lactic Acid 2.1 H* Lactic Acid F/U @ 2Hr Calcium 8.7 Total Bilirubin 1.5 H AST 52 H ALT 18 Alkaline Phosphatase 90 Troponin I High Sens Total Protein 7.2 Albumin 3.8 Lipase 11 Prostate Specific Ag 0.38 Urine Color Urine Appearance Urine pH Ur Specific [place] Urine Protein Urine Glucose (UA) Urine Ketones Urine Blood Urine Nitrite Ur Leukocyte Esterase Urine RBC Urine WBC Ur Squamous Epith Cells Urine Bacteria Hyaline Casts Gastric Occult Blood Stool Occult Blood COVID-19 ([facility]ES[facility]IA) COVID-19 [employer] 05/28/22 05/28/22 05/28/22 18:52 18:52 18:52 WBC RBC Hgb Hct MCV MCH MCHC RDW Plt Count MPV Immature Gran % (Auto) Neut % (Auto) Lymph % (Auto) [place] % (Auto) Eos % (Auto) Baso % (Auto) Lymph # (Auto) [place] # (Auto) Eos # (Auto) Baso # (Auto) Abs Immat Gran (auto) Absolute Neuts (auto) Absolute Nucleated RBC Nucleated RBC % (auto) PT 12.1 INR 1.1 Sodium Potassium Chloride Carbon Dioxide Anion Gap BUN Creatinine Estim Creat Clear Calc Estimated GFR Random Glucose Lactic Acid Lactic Acid F/U @ 2Hr Calcium Total Bilirubin AST ALT Alkaline Phosphatase Troponin I High Sens 164.6 H* Total Protein Albumin Lipase Prostate Specific Ag Urine Color Urine Appearance Urine pH Ur Specific [place] Urine Protein Urine Glucose (UA) Urine Ketones Urine Blood Urine Nitrite Ur Leukocyte Esterase Urine RBC Urine WBC Ur Squamous Epith Cells Urine Bacteria Hyaline Casts Gastric Occult Blood Stool Occult Blood COVID-19 ([place]IA) Negative COVID-19 [employer] Com See Note 05/28/22 05/28/22 05/28/22 21:24 21:24 21:34 WBC RBC Hgb Hct MCV MCH MCHC RDW Plt Count MPV Immature Gran % (Auto) Neut % (Auto) Lymph % (Auto) [place] % (Auto) Eos % (Auto) Baso % (Auto) Lymph # (Auto) [place] # (Auto) Eos # (Auto) Baso # (Auto) Abs Immat Gran (auto) Absolute Neuts (auto) Absolute Nucleated RBC Nucleated RBC % (auto) PT INR Sodium Potassium Chloride Carbon Dioxide Anion Gap BUN Creatinine Estim Creat Clear Calc Estimated GFR Random Glucose Lactic Acid Lactic Acid F/U @ 2Hr 1.6 Calcium Total Bilirubin AST ALT Alkaline Phosphatase Troponin I High Sens 143.4 H* Total Protein Albumin Lipase Prostate Specific Ag Urine Color Urine Appearance Urine pH Ur Specific [place] Urine Protein Urine Glucose (UA) Urine Ketones Urine Blood Urine Nitrite Ur Leukocyte Esterase Urine RBC Urine WBC Ur Squamous Epith Cells Urine Bacteria Hyaline Casts Gastric Occult Blood Stool Occult Blood POSITIVE COVID-19 ([facility]) COVID-19 Clin Com 05/28/22 05/29/22 05/29/22 21:41 04:13 04:13 WBC 9.1 RBC 3.74 L Hgb 12.0 L Hct 36.0 L MCV 96.3 MCH 32.1 MCHC 33.3 RDW 14.4 Plt Count 171 MPV 9.8 Immature Gran % (Auto) 0.6 H Neut % (Auto) 81.5 H Lymph % (Auto) 5.8 L [place] % (Auto) 11.7 H Eos % (Auto) 0.2 Baso % (Auto) 0.2 Lymph # (Auto) 0.5 L [place] # (Auto) 1.1 Eos # (Auto) 0.0 Baso # (Auto) 0.0 Abs Immat Gran (auto) 0.05 H Absolute Neuts (auto) 7.4 Absolute Nucleated RBC 0.000 Nucleated RBC % (auto) 0.0 PT INR Sodium 139 Potassium 4.7 Chloride 102 Carbon Dioxide 26 Anion Gap 16 BUN 14 Creatinine 0.97 Estim Creat Clear Calc 70.0 Estimated GFR > 60 Random Glucose 116 H Lactic Acid Lactic Acid F/U @ 2Hr Calcium 7.7 L D Total Bilirubin AST ALT Alkaline Phosphatase Troponin I High Sens Total Protein Albumin Lipase Prostate Specific Ag Urine Color Urine Appearance Urine pH Ur Specific [place] Urine Protein Urine Glucose (UA) Urine Ketones Urine Blood Urine Nitrite Ur Leukocyte Esterase Urine RBC Urine WBC Ur Squamous Epith Cells Urine Bacteria Hyaline Casts Gastric Occult Blood NEGATIVE Stool Occult Blood COVID-19 ([facility]IA) COVID-19 Clin Com 05/29/22 05:30 WBC RBC Hgb Hct MCV MCH MCHC RDW Plt Count MPV Immature Gran % (Auto) Neut % (Auto) Lymph % (Auto) [place] % (Auto) Eos % (Auto) Baso % (Auto) Lymph # (Auto) [place] # (Auto) Eos # (Auto) Baso # (Auto) Abs Immat Gran (auto) Absolute Neuts (auto) Absolute Nucleated RBC Nucleated RBC % (auto) PT INR Sodium Potassium Chloride Carbon Dioxide Anion Gap BUN Creatinine Estim Creat Clear Calc Estimated GFR Random Glucose Lactic Acid Lactic Acid F/U @ 2Hr Calcium Total Bilirubin AST ALT Alkaline Phosphatase Troponin I High Sens Total Protein Albumin Lipase Prostate Specific Ag Urine Color DK YELLOW Urine Appearance Clear Urine pH 7.0 Ur Specific [place] 1.020 Urine Protein 30 (1+) H Urine Glucose (UA) Negative Urine Ketones Trace Urine Blood Trace Urine Nitrite Negative Ur Leukocyte Esterase Negative Urine RBC 0-2 Urine WBC 0-5 Ur Squamous Epith Cells 0-2 Urine Bacteria None Seen Hyaline Casts 0-2 Gastric Occult Blood Stool Occult Blood COVID-19 ([facility]) COVID-19 Clin Com Imaging Radiologist's impression: Impressions Abdomen/Pelvis CT 05/28/22 19:35 IMPRESSION: Moderately large hiatal hernia with half of the stomach are on top of the diaphragm and the other half milligrams of the diaphragm. There is a large left inguinal hernia containing sigmoid/descending colon. Small infraumbilical midline hernia containing intraperitoneal fat. Colonic diverticulosis without diverticulitis. Fleischner guidelines were followed. Chest X-Ray 05/29/22 06:00 IMPRESSION: Advancement of the enteric tube. Evaluation of positioning is somewhat challenging given the known anatomy with the large parapharyngeal hernia. The tip of the tube likely extends below the diaphragm with the side-port above the level of the gastroesophageal junction. Continued advancement may be considered. Similar appearance of the lungs. Bilateral opacities. Assessment and Plan (1) Elevated troponin: Status: Acute (2) Cardiomyopathy: Status: Acute Plan 76-year-old gentleman with known coronary disease with previous anterior wall [place] complicated by subacute stent thrombosis and ischemic cardiomyopathy with EF 25 30% status post primary prevention ICD. He is presenting for abdominal pain and coffee-ground emesis. He has mildly abnormal troponin levels. He has no chest pain or shortness of breath otherwise. Clinically not in heart failure. Troponins are very mildly elevated and are potentially related to do month supply mismatch. I do not think he has true acute coronary syndrome. Aspirin can be held then he can have endoscopy with intermediate risk for periprocedural complications. Clinically compensated. Thank you for allowing me to participate in the care of your patient. Please feel free to contact me if you have any questions. Procedures Date of Service Date of Service: 05/29/22
--- NOTE | 2022-05-29 11:15 | PM.CNGS ---
History of Present Illness Consult details Consult date: 05/29/22 <MADAY Patrick - Last Filed: 05/30/22 12:14> Narrative: Mr. Mendoza is a 76 year old male with a PMHx of CAD, CHF EF 25-30%, s/p AICD placement who presented to the ER last night with complaints of of abdominal pain, nausea, retching, and inability to tolerate PO. States he began having these symptoms about 2 weeks ago which prompted him to decrease his oral intake which helped some. He said he was able to eat an actual meal on Friday, however Friday night he had a recurrence of his symptoms and felt very unwell therefore came in to the hospital for evaluation. While in the ER he had a CT abdomen/pelvis which showed a large hiatal hernia which was dilated with significant amount of debris within the stomach above and below the diaphragm. Patient was seen by GI and had an NGT placed which was definitely needed for this patient. NGT has since returned about 1600cc of brown liquid with some coffee ground material. He also has had some issues with constipation recently and noted he required some manual disimpaction recently that was black . States since the NGT was placed he feels much improved. Currently denies any nausea or abdominal pain. Denies any previous episodes of similar symptoms. States he has known about his hiatal hernia for many years and never had any issues other than some acid reflux in the past. Of note, states he had some symptoms of a heart attack about 5 weeks ago and was evaluated at [facility] for this. States he was told he did not have an actual heart attack at that time. Has an outpatient obstetrician gynecologist with [facility] for his significant cardiac comorbidities. <MADAY Patrick - Last Filed: 05/30/22 12:14> Review of Systems Constitutional: Constitutional: Denies fever(s), Denies headache(s), Denies night sweats, Reports poor appetite (recently due to abdominal symptoms) and Denies weakness <MADAY Patrick - Last Filed: 05/30/22 12:14> Eyes: Eyes: Denies loss of vision <MADAY Patrick - Last Filed: 05/30/22 12:14> ENT: Denies dysphagia, Denies headache(s), Denies odynophagia and Denies other (dysphagia) <MADAY Patrick - Last Filed: 05/30/22 12:14> Cardiovascular: Cardiovascular: Denies chest pain, Denies pedal edema, Denies leg edema, Denies lightheadedness and Denies dyspnea <MADAY Patrick - Last Filed: 05/30/22 12:14> Respiratory: Respiratory: Reports cough, Denies hemoptysis, Denies dyspnea and Denies wheezing <MADAY Patrick - Last Filed: 05/30/22 12:14> Gastrointestinal: Gastrointestinal: Reports abdominal pain, Reports melena, Denies bloating, Denies hematochezia, Reports coffee ground emesis, Reports constipation, Denies GI cramping, Denies dysphagia, Denies excessive flatus, Denies heartburn, Reports nausea and Denies odynophagia <MADAY Patrick - Last Filed: 05/30/22 12:14> Musculoskeletal: Musculoskeletal: Denies numbness and Denies tingling <MADAY Patrick - Last Filed: 05/30/22 12:14> Neurologic: Reports burning sensations (chronic, right foot), Denies headache(s), Denies loss of vision, Denies numbness, Denies tingling and Denies weakness <MADAY Patrick - Last Filed: 05/30/22 12:14> Hematologic/Lymphatic: Hematologic/Lymphatic: Denies easy bleeding and Denies lymphadenopathy <MADAY Patrick - Last Filed: 05/30/22 12:14> Allergic/Immunologic: Allergic/Immunologic: Denies wheezing <MADAY Patrick - Last Filed: 05/30/22 12:14> [facility] Past Medical History Medical History: Medical History (Updated 05/29/22 @ 13:25 by Renny Pace MD) Cardiomyopathy <MADAY Patrick - Last Filed: 05/30/22 12:14> Social History Social History: Social History Household Members: None Housing: Apartment Do you presently have visiting nurse or other home services: No Patient Tobacco Use Status: Never used Tobacco service: No Current occupational status: retired <MADAY Patrick - Last Filed: 05/30/22 12:14> Meds Allergies/Adverse reactions: Allergies Allergy/AdvReac Type Severity Reaction Status Date / Time Penicillins [PCN] Allergy Unknown Verified 05/29/22 07:30 <MADAY Patrick - Last Filed: 05/30/22 12:14> Active Medications: Current Medications Acetaminophen (Acetaminophen 325 Mg Tablet) 650 mg PO Q6H PRN PRN Reason: Pain, Mild (Pain Scale 1-3) Atorvastatin Calcium (Atorvastatin Calcium 80 Mg Tablet) 80 mg PO DAILY [facility] Gabapentin (Gabapentin 300 Mg Capsule) 600 mg PO TID [facility] Hydrochlorothiazide (Hydrochlorothiazide 12.5 Mg Tablet) 12.5 mg PO DAILY [facility]; Protocol Hydromorphone HCl (Hydromorphone Hcl 0.5 Mg/0.5 Ml Syringe) 0.5 mg IVPUSH Q4H PRN; Protocol PRN Reason: Breakthrough Pain Last Admin: 05/29/22 05:56 Dose: 0.5 mg Sodium Chloride (Ns) 1,000 mls @ 50 mls/hr IVCONT .Q20H [facility] Last Admin: 05/28/22 22:36 Dose: 50 mls/hr Isosorbide Mononitrate (Isosorbide Mononitrate 30 Mg Tab.Er.24h) 30 mg PO DAILY [facility]; Protocol Losartan Potassium (Losartan Potassium 50 Mg Tablet) 50 mg PO DAILY [facility]; Protocol Melatonin (Melatonin 3 Mg Tablet) 6 mg PO BEDTIME PRN PRN Reason: Insomnia Nitroglycerin (Nitroglycerin 0.4 Mg Tab.Subl) 0.4 mg SUBLINGUAL Q5M PRN PRN Reason: Chest Pain Ondansetron HCl (Ondansetron Hcl 4 Mg/2 Ml Vial) 4 mg IVPUSH Q8H PRN PRN Reason: Nausea and Vomiting Pantoprazole Sodium (Pantoprazole Sodium 40 Mg/10 Ml Vial) 40 mg IVPUSH BID@0630,1630 [facility] Last Admin: 05/29/22 05:55 Dose: 40 mg Pharmacy Consult (Consult Rx Perform Med Rec) 1 each MISCELLANE ONCE PRN PRN Reason: Consult order Pyridostigmine [place] (Pyridostigmine [place] 60 Mg Tablet) 60 mg PO TID [facility] Senna (Sennosides 8.6 Mg Tablet) 17.2 mg PO BEDTIME PRN PRN Reason: Constipation Sodium Chloride (0.9 % Sodium Chloride Flush 3 Ml Syringe) 3 ml IVFLUSH QSHIFT [facility] Last Admin: 05/29/22 07:16 Dose: 3 ml <MADAY Patrick - Last Filed: 05/30/22 12:14> Home medications: Home Medications Medication Instructions Recorded Confirmed Last Taken Type atorvastatin 80 mg tablet 1 tab PO DAILY 05/28/22 05/28/22 05/27/22 History azathioprine 50 mg tablet 2 tab PO DAILY 05/28/22 05/28/22 05/27/22 History gabapentin 300 mg capsule 2 cap PO TID 05/28/22 05/28/22 05/27/22 History isosorbide mononitrate 30 mg 1 tab PO DAILY 05/28/22 05/28/22 05/27/22 History tablet,extended release 24 hr losartan 50 mg tablet 1 tab PO DAILY 05/28/22 05/28/22 05/27/22 History nitroglycerin 0.4 mg sublingual 1 tab sublingual Q5M PRN Chest Pain 05/28/22 05/28/22 Unknown History tablet carvedilol 12.5 mg tablet 1 tab PO BID 05/29/22 05/29/22 Unknown History clindamycin HCl 300 mg capsule 1 cap PO TID 05/29/22 05/29/22 Unknown History hydrochlorothiazide 12.5 mg capsule 1 cap PO DAILY 05/29/22 05/29/22 Unknown History pyridostigmine bromide 60 mg tablet 1 tab PO TID 05/29/22 05/29/22 Unknown History <MADAY Patrick - Last Filed: 05/30/22 12:14> Physical Exam Vital Signs: Vital Signs: Last Vital Signs Temp 98.5 F 05/29/22 07:31 Pulse 89 05/29/22 10:08 Resp 12 05/29/22 10:08 BP 140/64 H 05/29/22 10:08 Pulse Ox 95 05/29/22 10:08 O2 Del Method 05/29/22 10:08 O2 Flow Rate 3 05/29/22 10:08 BMI result Body Mass Index 26.4 <MADAY Patrick - Last Filed: 05/30/22 12:14> General: No acute distress, resting comfortably in bed, well developed Head: Normocephalic, atraumatic, symmetric Eyes: Sclera anicteric, eyelids without edema or erythema, +EOMS intact ENT: Oral mucosa and tongue are moist. NGT in place with dark brown drainage. Neck: Soft, supple, symmetric, trachea midline, no crepitus Cardiovascular: Regular rate and rhythm, no murmur/rubs/gallops, BUE and BLE without edema, no calf tenderness bilaterally Respiratory: Lungs CTA B, breathing nonlabored, speaking in full sentences, on room air. No use of accessory muscles. Gastrointestinal: Soft, non-tender, non-distended, +normoactive bowel sounds. Skin: Warm and dry throughout, no rashes Lymphatic: no cervical, supraclavicular, infraclavicular lymphadenopathy noted Neurological: Alert and oriented x 3, no focal neurological deficit noted Psychiatric:no agitation, appropriate affect <MADAY Patrick - Last Filed: 05/30/22 12:14> Results Labs Result diagrams: : 05/30/22 08:02 05/30/22 08:02 <MADAY Patrick - Last Filed: 05/30/22 12:14> Labs: Abnormal lab results 05/28/22 05/28/22 05/28/22 Range/Units 18:52 18:52 18:52 WBC 10.9 H (4.8-10.8) X10*3/uL RBC 4.54 L (4.60-5.80) X10*6/uL Hgb (14.0-18.0) g/dl Hct (42.0-52.0) % Immature Gran % (Auto) 0.6 H (0.0-0.4) % Neut % (Auto) 89.8 H (45-73) % Lymph % (Auto) 1.9 L (20-40) % [place] % (Auto) (2-11) % Lymph # (Auto) 0.2 L (1.2-4.9) X10*3/uL Abs Immat Gran (auto) 0.07 H (0.00-0.03) X10*3/uL Absolute Neuts (auto) 9.8 H (2.0-8.3) x10*3/uL Potassium 5.6 H (3.3-5.1) mmol/L Anion Gap 22 H (12-20) Random Glucose 159 H (60-115) mg/dL Lactic Acid 2.1 H* (0.5-2.0) mmol/L Calcium (8.4-10.2) mg/dL Total Bilirubin 1.5 H (0.0-1.0) mg/dL AST 52 H (5-37) U/L Troponin I High Sens (<3.5-35.0) ng/L Urine Protein (Neg-Trace) mg/dL 05/28/22 05/28/22 05/29/22 Range/Units 18:52 21:24 04:13 WBC (4.8-10.8) X10*3/uL RBC 3.74 L (4.60-5.80) X10*6/uL Hgb 12.0 L (14.0-18.0) g/dl Hct 36.0 L (42.0-52.0) % Immature Gran % (Auto) 0.6 H (0.0-0.4) % Neut % (Auto) 81.5 H (45-73) % Lymph % (Auto) 5.8 L (20-40) % [place] % (Auto) 11.7 H (2-11) % Lymph # (Auto) 0.5 L (1.2-4.9) X10*3/uL Abs Immat Gran (auto) 0.05 H (0.00-0.03) X10*3/uL Absolute Neuts (auto) (2.0-8.3) x10*3/uL Potassium (3.3-5.1) mmol/L Anion Gap (12-20) Random Glucose (60-115) mg/dL Lactic Acid (0.5-2.0) mmol/L Calcium (8.4-10.2) mg/dL Total Bilirubin (0.0-1.0) mg/dL AST (5-37) U/L Troponin I High Sens 164.6 H* 143.4 H* (<3.5-35.0) ng/L Urine Protein (Neg-Trace) mg/dL 05/29/22 05/29/22 Range/Units 04:13 05:30 WBC (4.8-10.8) X10*3/uL RBC (4.60-5.80) X10*6/uL Hgb (14.0-18.0) g/dl Hct (42.0-52.0) % Immature Gran % (Auto) (0.0-0.4) % Neut % (Auto) (45-73) % Lymph % (Auto) (20-40) % [place] % (Auto) (2-11) % Lymph # (Auto) (1.2-4.9) X10*3/uL Abs Immat Gran (auto) (0.00-0.03) X10*3/uL Absolute Neuts (auto) (2.0-8.3) x10*3/uL Potassium (3.3-5.1) mmol/L Anion Gap (12-20) Random Glucose 116 H (60-115) mg/dL Lactic Acid (0.5-2.0) mmol/L Calcium 7.7 L D (8.4-10.2) mg/dL Total Bilirubin (0.0-1.0) mg/dL AST (5-37) U/L Troponin I High Sens (<3.5-35.0) ng/L Urine Protein 30 (1+) H (Neg-Trace) mg/dL Short CBC 05/28/22 05/29/22 Range/Units 18:52 04:13 WBC 10.9 H 9.1 (4.8-10.8) X10*3/uL Hgb 14.7 12.0 L (14.0-18.0) g/dl Hct 42.9 36.0 L (42.0-52.0) % Plt Count 211 171 (160-400) X10*3/uL BMP 05/28/22 05/29/22 18:52 04:13 Sodium 139 139 Potassium 5.6 H 4.7 Chloride 99 102 Carbon Dioxide 24 26 BUN 13 14 Creatinine 1.29 0.97 Calcium 8.7 7.7 L D Liver Function 05/28/22 Range/Units 18:52 Total Bilirubin 1.5 H (0.0-1.0) mg/dL AST 52 H (5-37) U/L ALT 18 (0-40) U/L Alkaline Phosphatase 90 (39-117) U/L Albumin 3.8 (3.5-5.0) g/dL Urine 05/29/22 Range/Units 05:30 Urine Color DK YELLOW Urine Appearance Clear Urine pH 7.0 (5.0-8.0) Ur Specific [place] 1.020 (1.005-1.025) Urine Protein 30 (1+) H (Neg-Trace) mg/dL Urine Glucose (UA) Negative (Negative) mg/dL All other labs normal. <MADAY Patrick - Last Filed: 05/30/22 12:14> Imaging Additional studies: CT Scan Report Signed Patient: Antwan Mendoza Ordering Physician: Hunter Garza MD Date of Service: 05/28/22 Procedure(s): CT abdomen pelvis wo con Accession Number(s): [id number] cc: Hunter Garza MD~ EXAMINATION: CT ABDOMEN AND PELVIS WITHOUT CONTRAST? CLINICAL INFORMATION: Upper abdominal pain.? COMPARISON: None? TECHNIQUE: Multidetector volumetric imaging was performed from the superior aspect of the liver through the pubic symphysis. Sagittal and coronal reformatted images were obtained on the technologist's workstation.? This CT examination was performed using dose optimization techniques as appropriate, variously including the following: *Automated exposure control *Adjustment of mA and/or kV according to patient size (this includes techniques or standardized protocols for targeted exams where dose is matched to indication/reason for exam; i.e. extremities or head) *Use of iterative reconstruction technique DLP: 1219 mGy-cm FINDINGS: LUNG BASES: There is large hiatal hernia. There is bilateral posterior pleural thickening and minimal atelectatic changes. There are pacer electrodes in the right atrium and right ventricle. The heart size is normal.? LIVER, GALLBLADDER, AND BILIARY TREE: The liver is normal in size, shape, and attenuation. No focal hepatic lesion or biliary ductal dilatation is present. The gallbladder is unremarkable with no evidence of radiopaque gallstones, gallbladder wall thickening, or obvious pericholecystic inflammatory changes.? PANCREAS: Unremarkable.? SPLEEN: Unremarkable.? ADRENAL GLANDS: Unremarkable.? KIDNEYS AND URETERS: The kidneys are normal in size, shape, and attenuation. No hydronephrosis, hydroureter, or calculi seen. No perinephric stranding. ? BLADDER: Unremarkable.? GASTROINTESTINAL TRACT: There is a moderate amount of stool and scattered diverticuli in the colon without distention or diverticulitis. The small bowel loops are normal caliber. Appendix is normal caliber. No inflammatory process seen in the abdomen. There is a fluid-filled enlarged stomach with large hiatal hernia. Half of the stomach appears to be within the herniation. Described that ABDOMINAL WALL: A small infraumbilical midline hernia containing fat is noted. The neck is 1.5 cm wide. There is a large left inguinal hernia containing a loop of sigmoid/descending colon. LYMPH NODES: No abnormal size lymph nodes seen. VASCULAR: Unremarkable. PELVIC VISCERA: There is large left inguinal hernia containing a loop of bowel. There is no free fluid. No abnormal pelvic or inguinal lymph nodes.? OSSEOUS STRUCTURES: No aggressive lytic or sclerotic process seen.? CT/CT abdomen pelvis wo con IMPRESSION: Moderately large hiatal hernia with half of the stomach are on top of the diaphragm and the other half milligrams of the diaphragm. ? There is a large left inguinal hernia containing sigmoid/descending colon. Small infraumbilical midline hernia containing intraperitoneal fat. ? Colonic diverticulosis without diverticulitis.? ? Fleischner guidelines were followed. <MADAY Patrick - Last Filed: 05/30/22 12:14> Assessment and Plan (1) Large hiatal hernia: Status: Acute <MADAY Patrick - Last Filed: 05/30/22 12:14> Mr. Mendoza is a 76 year old male who presented with an approximately 2 week history of abdominal pain, nausea, retching, and the inability to tolerate much PO. Found to have a large hiatal hernia with dilation of the stomach above and below the diaphragm. Agree with NGT insertion. Should keep that in place for another 24-48 hours at least. Will likely need a clamp trial prior to removal - possibly Friday. Keep strictly NPO for now. Once NGT no longer needed will plan to start clear liquid diet (no straws, no carbonated beverages) for ~2days. If tolerates this patient will likely not require any surgical intervention this admission and can be discharged on a full liquid diet with instructions to increase to a soft diet in about a week. If discharged, patient will followup with Dr. Babin as an outpatient to discuss surgical repair on an elective basis. If patient cannot tolerate NGT removal or PO intake he will need hernia repair this admission. Thank you for the consultation. Case discussed with Dr. Babin. We will follow along with you. I spent more than half of the 70 minute required to evaluate this patient ( 40 minutes ) including physical exam, obtaining history, reviewing imaging and all other diagnostics. To add to this I reviewed older imaging from [facility]. There is a cxr from 01/2022 that shows a large hiatal hernia. There is a CT scan from 2016 that also shows a large paraesophageal hernia with the whole stomach in the chest mostly to the left. In [address] chest that shows a small hiatal hernia only with omental fat. Goal of management is to decompress the stomach and eventually get him to the point where he can tolerate liquids in a few days. Ideally we can cool him off in this way and get him discharged so that he can be evaluated for surgical repair on an elective basis as an outpatient. <MADAY Patrick - Last Filed: 05/30/22 12:14> I spent more than half of the 70 minute required to evaluate this patient ( 40 minutes ) including physical exam, obtaining history, reviewing imaging and all other diagnostics. To add to this I reviewed older imaging from [facility]. There is a cxr from 01/2022 that shows a large hiatal hernia. There is a CT scan from 2016 that also shows a large paraesophageal hernia with the whole stomach in the chest mostly to the left. In [address] chest that shows a small hiatal hernia only with omental fat. Goal of management is to decompress the stomach and eventually get him to the point where he can tolerate liquids in a few days. Ideally we can cool him off in this way and get him discharged so that he can be evaluated for surgical repair on an elective basis as an outpatient. <Arian Babin MD - Last Filed: 05/29/22 14:44> (2) Acute GI bleeding: Status: Acute <MADAY Patrick - Last Filed: 05/30/22 12:14> (3) Abdominal pain: Status: Acute <MADAY Patrick - Last Filed: 05/30/22 12:14> Procedures Date of Service Date of Service: 05/29/22 <MADAY Patrick - Last Filed: 05/30/22 12:14>
[2022-05-29] MEDS: Lidocaine HCl Viscous 2 % 15 ML SOLUTION MUCOUS MEM (14:11)
--- NOTE | 2022-05-29 14:12 | MHC.CM.PN ---
IMM addressed, white copy to patient at bedside, yellow to file in chart. Patient reports he lives alone and is independent at home and community. He denies any DME or receiving home services. He is Covid vax'd x3 (MRNA), HCP-copy requested, PCP: Ron De La Cruzon, Son will transport. D/C Plan: Home self-care vs Home with [facility]
[2022-05-29 14:27] VITALS: BP 137/69; PULSE 93; RESP 12; O2SAT 94
--- NOTE | 2022-05-29 16:23 | PC.NURSE ---
R forearm IV line displaced with pt movement. No redness or swelling noted on the IV site. RN to RN report given to Xiao, as pt will be transported to [facility].
[2022-05-29] MEDS: Gabapentin 300 MG CAPSULE 600 MG PO ×2 (16:26→21:51)
[2022-05-29 16:54] VITALS: BP 154/79; PULSE 99; RESP 18; TEMP 36.7; O2SAT 98
[2022-05-29] MEDS: 0.9 % Sodium Chloride 1,000 ML 50 ML IVCONT (18:22)
--- NOTE | 2022-05-29 19:15 | PC.NURSE ---
Assumed care of patient at this time.
[2022-05-29 20:02] VITALS: BP 110/71; PULSE 87; RESP 16; TEMP 37.1; O2SAT 98
--- NOTE | 2022-05-29 21:51 | PC.NURSE ---
NG suction paused at this time due to medication given
--- NOTE | 2022-05-29 22:41 | PC.NURSE ---
Suction hooked back up to patient's NG tube. Provided patient with cool cloth to wipe face per his request.
[2022-05-30] VITALS (7 sets, daily range): BP systolic 110–138; BP diastolic 56–64; PULSE 65–91; RESP 16–20; TEMP 36.1–37.6; O2SAT 91–100
[2022-05-30] MEDS: 0.9 % Sodium Chloride 1,000 ML 50 ML IVCONT (03:07)
[2022-05-30] MEDS: Pantoprazole Sodium 40 MG/10 ML VIAL IVPUSH ×2 (07:04→16:13)
[2022-05-30] MEDS: Losartan Potassium 50 MG TABLET PO (07:55)
[2022-05-30] MEDS: Atorvastatin Calcium 80 MG TABLET PO (07:55)
[2022-05-30] MEDS: Isosorbide Mononitrate 30 MG TAB.ER.24H PO (07:55)
[2022-05-30] MEDS: Gabapentin 300 MG CAPSULE 600 MG PO ×3 (07:56→20:28)
[2022-05-30 08:16] LABS: Hematocrit 34.7 % (42.0-52.0); Hemoglobin 11.7 g/dl (14.0-18.0); Mean Corpuscular HGB Conc 33.7 g/dl (31.0-36.0); Mean Corpuscular Hemoglobin 32.3 pg (27.0-33.0); Mean Corpuscular Volume 95.9 fL (80.0-98.0); Mean Platelet Volume 9.8 fL (9.4-12.4); Platelet Count 165 X10*3/uL (160-400); Red Blood Count 3.62 X10*6/uL (4.60-5.80); Red Cell Distribution Width 14.2 % (11.0-16.0); White Blood Count 8.5 X10*3/uL (4.8-10.8)
[2022-05-30 08:26] LABS: Anion Gap 15 (12-20); Blood Urea Nitrogen 16 mg/dL (9-16); Calcium 7.8 mg/dL (8.4-10.2); Carbon Dioxide 28 mmol/L (22-29); Chloride 102 mmol/L (96-108); Creatinine Clr Calc Pharmacy 70.8; Estimated Glomerular Filt Rate > 60; Glucose Random 103 mg/dL (60-115); Potassium 4.6 mmol/L (3.3-5.1); Sodium 140 mmol/L (135-145)
--- NOTE | 2022-05-30 10:07 | HO.PM.IMPN ---
Subjective Subjective Date of Service: 05/30/22 Interval History: Seen in f/u for abdominal pain, n/v, hiatal hernia, gib interval history: No in distress or pain, NGT with no output, pat pt was feel depressed from news from surgery that if surgey has to be on emergent basis there is 30% risk of mortality Review of Systems no abominal, no confusion Physical Exam Vital Signs: Vital Signs: Last Vital Signs Temp 97.8 F 05/30/22 07:39 Pulse 91 05/30/22 07:39 Resp 20 05/30/22 07:39 BP 138/64 05/30/22 07:39 Pulse Ox 94 05/30/22 07:39 O2 Del Method 05/30/22 07:39 O2 Flow Rate 3 05/30/22 07:39 BMI result Body Mass Index 26.4 Const: Other: General: AO X 3, no acute distress HEENT: NGT in with no signficant drainage Resp: CTA bilateral CVS: S1,S2,RRR GI: +BS, NT, no distention Skin: No rash Neuro: motor grossly intact Psych: flat affect Objective Data Active Medications Acetaminophen (Acetaminophen 325 Mg Tablet) 650 mg PO Q6H PRN PRN Reason: Pain, Mild (Pain Scale 1-3) Atorvastatin Calcium (Atorvastatin Calcium 80 Mg Tablet) 80 mg PO DAILY [facility] Last Admin: 05/30/22 07:55 Dose: 80 mg Documented By: NO Gabapentin (Gabapentin 300 Mg Capsule) 600 mg PO TID [facility] Last Admin: 05/30/22 07:56 Dose: 600 mg Documented By: NO Hydrochlorothiazide (Hydrochlorothiazide 12.5 Mg Tablet) 12.5 mg PO DAILY [facility]; Protocol Last Admin: 05/30/22 08:01 Dose: Not Given Documented By: NO Non-Admin Reason: Patient Refused Hydromorphone HCl (Hydromorphone Hcl 0.5 Mg/0.5 Ml Syringe) 0.5 mg IVPUSH Q4H PRN; Protocol PRN Reason: Breakthrough Pain Last Admin: 05/29/22 14:11 Dose: 0.5 mg Documented By: IVIS Sodium Chloride (Ns) 1,000 mls @ 50 mls/hr IVCONT .Q20H [facility] Last Admin: 05/30/22 03:07 Dose: 50 mls/hr Documented By: EMILIANO Isosorbide Mononitrate (Isosorbide Mononitrate 30 Mg Tab.Er.24h) 30 mg PO DAILY [facility], [facility]; Protocol Last Admin: 05/30/22 07:55 Dose: 30 mg Documented By: NO Lidocaine HCl (Lidocaine Hcl Viscous 2 % 15 Ml Solution) 15 ml MUCOUS MEM Q3H PRN PRN Reason: Sore Throat Last Admin: 05/29/22 14:11 Dose: 15 ml Documented By: IVIS Losartan Potassium (Losartan Potassium 50 Mg Tablet) 50 mg PO DAILY [facility]; Protocol Last Admin: 05/30/22 07:55 Dose: 50 mg Documented By: NO Melatonin (Melatonin 3 Mg Tablet) 6 mg PO BEDTIME PRN PRN Reason: Insomnia Nitroglycerin (Nitroglycerin 0.4 Mg Tab.Subl) 0.4 mg SUBLINGUAL Q5M PRN PRN Reason: Chest Pain Ondansetron HCl (Ondansetron Hcl 4 Mg/2 Ml Vial) 4 mg IVPUSH Q8H PRN PRN Reason: Nausea and Vomiting Pantoprazole Sodium (Pantoprazole Sodium 40 Mg/10 Ml Vial) 40 mg IVPUSH BID@0630,1630 [facility] Last Admin: 05/30/22 07:04 Dose: 40 mg Documented By: EMILIANO Pharmacy Consult (Consult Rx Perform Med Rec) 1 each MISCELLANE ONCE PRN PRN Reason: Consult order Pyridostigmine [place] (Pyridostigmine [place] 60 Mg Tablet) 60 mg PO TID [facility] Last Admin: 05/30/22 08:01 Dose: Not Given Documented By: NO Non-Admin Reason: Patient Refused Senna (Sennosides 8.6 Mg Tablet) 17.2 mg PO BEDTIME PRN PRN Reason: Constipation Sodium Chloride (0.9 % Sodium Chloride Flush 3 Ml Syringe) 3 ml IVFLUSH QSHIFT [facility] Last Admin: 05/30/22 08:05 Dose: Not Given Documented By: NO Non-Admin Reason: IV Running Labs CBC & Chem 7: 05/30/22 08:02 05/30/22 08:02 Labs: Laboratory Results - last 24 hr 05/30/22 05/30/22 08:02 08:02 MCV 95.9 MCH 32.3 MCHC 33.7 RDW 14.2 Plt Count 165 MPV 9.8 Absolute Nucleated RBC 0.000 Nucleated RBC % (auto) 0.0 Anion Gap 15 Estim Creat Clear Calc 70.8 Estimated GFR > 60 Random Glucose 103 Calcium 7.8 L Assessment and Plan (1) Large hiatal hernia: Status: Acute (2) Acute GI bleeding: Status: Acute (3) Abdominal pain: Status: Acute Plan 76-year-old male with a past medical history of CAD, CHF with EF of 25-30% status post AICD, myasthenia gravis, obesity, paraesophageal hernia, giant inguinal hernia presented to the hospital today with a chief complaint of nausea/vomiting/abdominal pain.? Noted to have following conditions: Coffee-ground emesis: H and H currently stable IV PPI NPO GI consult Serial H&H Patient also stool guaiac positive (brown stool in the rectal vault with guaiac positive per ER physician) Seen by Dr. Robison with the following 1/ Recommend thoracic surgery consult today for further assessment in case needs surgical therapy 2/ would hold off on EGD, if really needs diagnostic testing then ba swallow and follow thru 3/ optimize cardiac and neurological status, given co morbidities, higher chance of surgical risk, has had plasmapharesis in past for MG. 4/ would keep on PPI e.g IV pantoprazole 40 mg BID Nausea/vomiting/abdominal pain: ???CT abdomen showed moderate large hiatal hernia with half of the stomach around the top of the diaphragm. CT also showed large inguinal hernia containing sigmoid and descending colon.? Small infraumbilical midline hernia containing intraperitoneal fat. Patient reported that he has been passing gas.? Thoracic made the following recommendation: keep him with NGT for at least another 24-48 hours. Then we will probably say clamp the tube for a trial to see if symptoms return. Then prior to discharge he is going to need a couple days of clear liquids to make sure tolerates. If he doesn?t pass these tests will need surgery for the hiatal hernia this admission. If he does well then we will set him up for eval for elective surgery as an outpatient. Going to be here for probablyyy at least 3-4 days for our tests/eval before he will be ok to go home. [place] message from Martha Hughes 05/30/22 continue NGT Elevated troponins:--trended down, cardiology recommends no further w/u History of Myastenia G... continue meds and consider Neuro consult History of CHF:? EF of 25-30% status post AICD currently euvolemic.? Will continue to monitor History of myasthenia gravis:?home Azathioprine, Pyridostigmine on hold due to NPO status, ? DVT prophylaxis: SCD boots Code status: Full code Need for inpatient: Management of hiatal Hernia with stomach in chest and high risk for incarceration and being closely monitored and may need surgery if symptoms not resolved conservatively Quality Stroke Does the patient have a stroke diagnosis?: No VTE Prior VTE?: No VTE Risk Level:: Medical - moderate - high VTE Device Contraindication: N/A - Device Ordered VTE Drug Contraindication: Treatment Not Indicated
--- NOTE | 2022-05-30 11:28 | P.CDIC_ITS ---
CDI Concurrent Query Documentation Clarification: PHYSICIAN'S DOCUMENTATION REQUEST Date of Query: 05/30/22 1129 Patient Name: Antwan Mendoza Admit Date: 05/28/22 Dear Doctor, A review of the medical record indicates additional documentation may be needed. Please review below and update the documentation accordingly. Clinical Indicators: The following diagnoses or signs and symptoms were noted in the patient record: Risk Factors/Clinical Indicators/Treatments LABS: potassium 5.6 H nausea/vomiting IV fluids Based on the above, could you clarify in the Progress Notes the appropriate diagnosis, if significant, that supports the above abnormalities and additional evaluation, monitoring, and/or treatment rendered: * Hyperkalemia or other etiology of lab findings * Labs indicate a diagnosis of (please specify) * Other (please specify) * Unable to determine Use of terms such as suspected, likely, concern for, or probable (associated with a specific diagnosis that is being evaluated, monitored, or treated as if it exists) are acceptable and can be coded in the inpatient setting, when documented at the time of discharge. Thank you, Emily Hughes [facility], CDIS Extension: [phone] Please use your independent medical judgment in providing your response. THIS QUERY IS PART OF THE PERMANENT MEDICAL RECORD Provider Response: Other Other Diagnosis: Hyperkalemia
--- NOTE | 2022-05-30 11:50 | PM.CNGS ---
History of Present Illness Consult details Consult date: 05/30/22 Reason for consult: hernia Narrative: I have been asked to see Mr. Mendoza, a 76-year-old gentleman with an ICD, myasthenia gravis, elevated cardiac troponin and a large paraesophageal hernia with mild anemia, which is both likely dilutional and secondary to Gavin ulcers associated with paraesophageal hernia. The patient reports that he had been suffering from chest/upper abdominal pain for in excess of a week but decided to attend a convention where he tried in milieu rating his symptoms with yogurt and probiotics. However, the symptoms continued and he presented to the emergency department. Patient is a somewhat poor historian. He notes that he has cardiac issues and obtains his care at [facility]. Cursory evaluation of the EMR shows that in 2016 he underwent an echocardiogram that demonstrated an ejection fraction of 25-30%. The patient has been admitted to the medical service with consultation to cardiology and CT surgery given a large paraesophageal hernia. Patient does endorse that since nasogastric tube placement, his symptoms have improved. Understandably, he finds the nasogastric tube uncomfortable. He otherwise denies any chest pain, difficulty breathing or shortness of breath. Review of Systems Review of Systems: Yes all other systems are reviewed and are negative Constitutional: Constitutional: Reports as per [facility] Past Medical History Medical History Cardiomyopathy Functional capacity: uses cane/walker Social History Social History Household Members: None Housing: Apartment Do you presently have visiting nurse or other home services: No Patient Tobacco Use Status: Never used Tobacco service: No Current occupational status: retired Meds Allergies Allergy/AdvReac Type Severity Reaction Status Date / Time Penicillins [PCN] Allergy Unknown Verified 05/29/22 07:30 Active Medications: Current Medications Acetaminophen (Acetaminophen 325 Mg Tablet) 650 mg PO Q6H PRN PRN Reason: Pain, Mild (Pain Scale 1-3) Atorvastatin Calcium (Atorvastatin Calcium 80 Mg Tablet) 80 mg PO DAILY [facility] Last Admin: 05/30/22 07:55 Dose: 80 mg Gabapentin (Gabapentin 300 Mg Capsule) 600 mg PO TID [facility] Last Admin: 05/30/22 07:56 Dose: 600 mg Hydrochlorothiazide (Hydrochlorothiazide 12.5 Mg Tablet) 12.5 mg PO DAILY [facility]; Protocol Last Admin: 05/30/22 08:01 Dose: Not Given Hydromorphone HCl (Hydromorphone Hcl 0.5 Mg/0.5 Ml Syringe) 0.5 mg IVPUSH Q4H PRN; Protocol PRN Reason: Breakthrough Pain Last Admin: 05/29/22 14:11 Dose: 0.5 mg Sodium Chloride (Ns) 1,000 mls @ 50 mls/hr IVCONT .Q20H [facility] Last Admin: 05/30/22 03:07 Dose: 50 mls/hr Isosorbide Mononitrate (Isosorbide Mononitrate 30 Mg Tab.Er.24h) 30 mg PO DAILY [facility]; Protocol Last Admin: 05/30/22 07:55 Dose: 30 mg Lidocaine HCl (Lidocaine Hcl Viscous 2 % 15 Ml Solution) 15 ml MUCOUS MEM Q3H PRN PRN Reason: Sore Throat Last Admin: 05/29/22 14:11 Dose: 15 ml Losartan Potassium (Losartan Potassium 50 Mg Tablet) 50 mg PO DAILY [facility]; Protocol Last Admin: 05/30/22 07:55 Dose: 50 mg Melatonin (Melatonin 3 Mg Tablet) 6 mg PO BEDTIME PRN PRN Reason: Insomnia Nitroglycerin (Nitroglycerin 0.4 Mg Tab.Subl) 0.4 mg SUBLINGUAL Q5M PRN PRN Reason: Chest Pain Ondansetron HCl (Ondansetron Hcl 4 Mg/2 Ml Vial) 4 mg IVPUSH Q8H PRN PRN Reason: Nausea and Vomiting Pantoprazole Sodium (Pantoprazole Sodium 40 Mg/10 Ml Vial) 40 mg IVPUSH BID@0630,1630 [facility] Last Admin: 05/30/22 07:04 Dose: 40 mg Pharmacy Consult (Consult Rx Perform Med Rec) 1 each MISCELLANE ONCE PRN PRN Reason: Consult order Pyridostigmine [place] (Pyridostigmine [place] 60 Mg Tablet) 60 mg PO TID [facility] Last Admin: 05/30/22 08:01 Dose: Not Given Senna (Sennosides 8.6 Mg Tablet) 17.2 mg PO BEDTIME PRN PRN Reason: Constipation Sodium Chloride (0.9 % Sodium Chloride Flush 3 Ml Syringe) 3 ml IVFLUSH QSHIFT [facility] Last Admin: 05/30/22 08:05 Dose: Not Given Home Medications Medication Instructions Recorded Confirmed Last Taken Type atorvastatin 80 mg tablet 1 tab PO DAILY 05/28/22 05/28/22 05/27/22 History azathioprine 50 mg tablet 2 tab PO DAILY 05/28/22 05/28/22 05/27/22 History gabapentin 300 mg capsule 2 cap PO TID 05/28/22 05/28/22 05/27/22 History isosorbide mononitrate 30 mg 1 tab PO DAILY 05/28/22 05/28/22 05/27/22 History tablet,extended release 24 hr losartan 50 mg tablet 1 tab PO DAILY 05/28/22 05/28/22 05/27/22 History nitroglycerin 0.4 mg sublingual 1 tab sublingual Q5M PRN Chest Pain 05/28/22 05/28/22 Unknown History tablet carvedilol 12.5 mg tablet 1 tab PO BID 05/29/22 05/29/22 Unknown History clindamycin HCl 300 mg capsule 1 cap PO TID 05/29/22 05/29/22 Unknown History hydrochlorothiazide 12.5 mg capsule 1 cap PO DAILY 05/29/22 05/29/22 Unknown History pyridostigmine bromide 60 mg tablet 1 tab PO TID 05/29/22 05/29/22 Unknown History Physical Exam Vital Signs: Vital Signs: Last Vital Signs Temp 98.1 F 05/30/22 11:47 Pulse 65 05/30/22 11:47 Resp 18 05/30/22 11:47 BP 120/61 05/30/22 11:47 Pulse Ox 91 L 05/30/22 11:47 O2 Del Method 05/30/22 11:47 O2 Flow Rate 3 05/30/22 11:47 BMI result Body Mass Index 26.4 The patient is non-toxic & frail in appearance NC/AT, PERRLA, EOMI Mood, affect & judgment all appear appropriate Sclera anicteric conjunctiva pink and moist Oropharynx is clear with no aphthous ulcers, Mallampati class 4, mucous membranes moist Neck is supple with no masses, adenopathy or bruits Heart is regular, normal S1-S2 no rubs or murmurs Lungs are clear and equal anteriorly with no audible wheezing, rubs or dullness to percussion No CVA tenderness present Abdomen is overweight with no demonstrable hernias. No HSM, rebound, rigidity, guarding, masses or bruits are present. Rectal exam is deferred Skin has good turgor and is free of rashes Extremities free of cyanosis clubbing edema; interosseus muscle wasting in hands are symmetric B/L Results Labs Result diagrams: 05/30/22 08:02 05/30/22 08:02 Labs: Abnormal lab results 05/30/22 05/30/22 Range/Units 08:02 08:02 RBC 3.62 L (4.60-5.80) X10*6/uL Hgb 11.7 L (14.0-18.0) g/dl Hct 34.7 L (42.0-52.0) % Calcium 7.8 L (8.4-10.2) mg/dL Short CBC 05/30/22 Range/Units 08:02 WBC 8.5 (4.8-10.8) X10*3/uL Hgb 11.7 L (14.0-18.0) g/dl Hct 34.7 L (42.0-52.0) % Plt Count 165 (160-400) X10*3/uL BMP 05/30/22 08:02 Sodium 140 Potassium 4.6 Chloride 102 Carbon Dioxide 28 BUN 16 Creatinine 0.96 Calcium 7.8 L Urine 05/29/22 Range/Units 05:30 Urine Color DK YELLOW Urine Appearance Clear Urine pH 7.0 (5.0-8.0) Ur Specific [place] 1.020 (1.005-1.025) Urine Protein 30 (1+) H (Neg-Trace) mg/dL Urine Glucose (UA) Negative (Negative) mg/dL All other labs normal. Imaging Abdomen CT scan report/results: report reviewed and image reviewed CT scan - pelvis: report reviewed and image reviewed Assessment and Plan (1) Paraesophageal hernia: Status: Acute (2) Elevated troponin: Status: Acute (3) Acute GI bleeding: Status: Acute (4) Abdominal pain: Status: Acute Plan In reviewing available records, the patient is very high risk for acute emergent surgery. I have discussed the case with the hospitalist who is ordering a repeat echocardiogram since the 1 from [facility] is from 2016. I have also ordered a pre-albumin. The patient's comorbidities and probable nutritional depletion make him high risk for surgery based on current available data. The patient likely has Gavin ulcers that chronically bleed related to the paraesophageal hernia. These do not appear to be an acute issue at this time. However, upper endoscopy to assess anatomy may be in order if the patient is an acceptable operative risk. An upper GI via the nasogastric tube may help to better define the patient's anatomy or could be in conjunction with a thoracoabdominal CT with oral contrast. We will need input from Cardiology regarding the patient's anesthesia/surgical risk CT surgery input noted and appreciated. Will coordinate care. Thank you for asking me to participate in the care of this rather complex patient. Procedures Date of Service Date of Service: 05/30/22
--- NOTE | 2022-05-30 14:00 | CA_ITS ---
Transthoracic Echocardiogram Patient (Last, First, Middle): Antwan Mendoza, Gender: Male Date of : 1945 Age: 76 Procedure Date: 05/30/2022 Procedure Type: Transthoracic Echocardiogram Location: [facility] Height: 180.34 cm Weight: 86.18 kg BSA: 2.06 m2 Heart Rate: 76 bpm BP: 120 / 61 mmHg Lobby Concierge: SB Referring MD: Luis Sidhu MD Symptoms: cardiomyopathy Study Quality: Adequate w contrast ECG Rhythm: Paced Conclusions: - Mildly increased left ventricular cavity size. There is normal left ventricular wall thickness. The left ventricular systolic function is moderate to severely decreased. The visually estimated ejection fraction is between 20-25%. - The basal inferior and basal anterior segments are hypokinetic. - The inferoseptal wall, the mid anterior, mid inferior, and mid anteroseptal segments are akinetic. 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 Findings Procedure Information Contrast agent, definity, is being given per protocol without apparent complications. Left Ventricle Mildly increased left ventricular cavity size. There is normal left ventricular wall thickness. The left ventricular systolic function is moderate to severely decreased. The visually estimated ejection fraction is between 20-25%. There is evidence of regional wall motion abnormalities. Diastolic function is indeterminate on the basis of available data. Wall Motion Rest Echo Findings The basal inferior and basal anterior segments are hypokinetic. The inferoseptal wall, the mid anterior, mid inferior, and mid anteroseptal segments are akinetic. 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 Right Ventricle Normal right ventricular cavity size and systolic function. Atria Mild biatrial enlargement. Aortic Valve There is a normal trileaflet aortic valve. There is mild calcification of the aortic valve. There is no aortic valve stenosis. There is no aortic valve regurgitation. Mitral Valve The mitral valve appears normal. There is mild mitral valve regurgitation. There is no mitral valve stenosis. Pulmonic Valve The pulmonic valve was not well visualized. Tricuspid Valve Normal tricuspid valve structure. There is trace tricuspid valve regurgitation. Significantly elevated right atrial pressure. Moderate pulmonary hypertension is present. Great Vessels All visible segments of the aorta are normal in size. The pulmonary artery was not well visualized. Venous The inferior vena cava is dilated and collapses less than 50% with inspiration. Pericardium/Pleural There is no evidence of pericardial effusion. Prior Study Comparison No prior study available for comparison. Measurements 2D Linear Measurements IVSd: 0.90 0.6-0.9/0.6-1.0 cm LVIDd: 6.32 3.9-5.3/4.2-5.9 cm LVIDd Index: 3.07 2.4-3.2/2.2-3.1 cm/m2 LVIDs: 5.31 2.0-3.6 cm LVPWd: 0.65 0.7-1.1 cm Ao Root: 3.10 2.1-3.5 cm LA Diam: 4.40 2.7-3.8/3.0-4.0 cm LAIDs Index: 2.14 1.5-2.3 cm/m2 LV Mass: 244.21 67-162/88-224 g LV Mass Index: 118.55 43-95/49-115 g/m2 LVOT Diam: 2.20 3.0+(-)1.3 cm 2D Systolic Function EF 4C: 25.50 >55% EF 2C: 26.00 >55% EF BiP: 23.40 >55% Mitral Valve MV Pk E: 0.77 MV PK A: 1.12 MV Decel Time: 153.00 E/A: 0.70 E'Lateral: 2.68 E/E' Lat: 28.50 PHT: 45.00 MVA PHT: 4.89 Decel Alpine: 5.01 Aortic Valve AoV Pk Tej: 1.50 AoV Mn Tej: 1.00 AoV VTI: 0.29 AoV Pk Grad: 9.00 Aov Mn Grad: 5.00 GISELLE Cont.VTI: 2.46 LVOT LVOT Pk Tej: 0.97 LVOT Mn Tej: 0.62 LVOT VTI: 0.19 LVOT Pk Grad: 4.00 LVOT Mn Grad: 2.00 LVOT Diam: 2.20 LVOT Area: 3.80 Diastolic Function MV Pk E: 0.77 MV Pk A: 1.12 E/A: 0.70 E' Laterial: 2.68 E/E' Lat: 28.50 Right Ventricle TAPSE (mm): 17.80 TVS' Tej: 8.70 Tricuspid Valve TR Pk Tej: 2.94 TR Pk Grad: 35.00 RA Press: 15.00 RVSP: 50.00 Great Vessels Aorta Ao Root-2D: 3.10 2.0-3.7 cm Sinus of Valsalva: 3.10 2.0-3.5 cm Ao Asc: 3.40 2.1-3.4 cm Pulmonary Valve PV Pk Tej: 1.32 Peak PV Grad: 7.00 Updated in Other Vendor System with Status of Final Renny Pace MD electronically signed on 05/30/2022 4:29:55 PM with status of Final
[2022-05-30 15:55] LABS: Estimated Average Glucose 100 mg/dL; Hemoglobin A1c % 5.1 %
--- NOTE | 2022-05-30 16:06 | P.CNNE_ITS ---
History of Present Illness Data of Consult Service Date: 05/30/22 Primary Care Provider: Unknown Physician HPI Reason for consult: Myasthenia gravis 76-year-old male with a past medical history of CAD, CHF with EF of 25-30% status post AICD, myasthenia gravis, obesity, paraesophageal hernia, giant inguinal hernia presented to the hospital today with a chief complaint of nausea/vomiting/abdominal pain. He reported that myasthenia gravis was diagnosed number of years ago by a neurologist in [facility] who recently retired and he did not have any neurologist. He was given a different neurologist at [facility], Dr. William, who he did not want to see. He also reported that initially he was treated with steroids and then Mestinon and eyes a thigh apparent. He has not been taking Mestinon or steroids for number of years and has mostly relied on azathioprine. His initial symptoms were ptosis and difficulty swall owing and speaking. He denied similar symptoms during recent years. He denied double vision. [facility] Past Medical History Medical History Cardiomyopathy Functional capacity: uses cane/walker Social History Social History Household Members: None Housing: Apartment Do you presently have visiting nurse or other home services: No Patient Tobacco Use Status: Never used Tobacco service: No Current occupational status: retired Meds Allergies Allergy/AdvReac Type Severity Reaction Status Date / Time Penicillins [PCN] Allergy Unknown Verified 05/29/22 07:30 Active Medications: Current Medications Acetaminophen (Acetaminophen 325 Mg Tablet) 650 mg PO Q6H PRN PRN Reason: Pain, Mild (Pain Scale 1-3) Atorvastatin Calcium (Atorvastatin Calcium 80 Mg Tablet) 80 mg PO DAILY [facility] Last Admin: 05/30/22 07:55 Dose: 80 mg Gabapentin (Gabapentin 300 Mg Capsule) 600 mg PO TID [facility] Last Admin: 05/30/22 07:56 Dose: 600 mg Hydrochlorothiazide (Hydrochlorothiazide 12.5 Mg Tablet) 12.5 mg PO DAILY [facility]; Protocol Last Admin: 05/30/22 08:01 Dose: Not Given Hydromorphone HCl (Hydromorphone Hcl 0.5 Mg/0.5 Ml Syringe) 0.5 mg IVPUSH Q4H PRN; Protocol PRN Reason: Breakthrough Pain Last Admin: 05/29/22 14:11 Dose: 0.5 mg Sodium Chloride (Ns) 1,000 mls @ 50 mls/hr IVCONT .Q20H [facility] Last Admin: 05/30/22 03:07 Dose: 50 mls/hr Isosorbide Mononitrate (Isosorbide Mononitrate 30 Mg Tab.Er.24h) 30 mg PO DAILY [facility]; Protocol Last Admin: 05/30/22 07:55 Dose: 30 mg Lidocaine HCl (Lidocaine Hcl Viscous 2 % 15 Ml Solution) 15 ml MUCOUS MEM Q3H PRN PRN Reason: Sore Throat Last Admin: 05/29/22 14:11 Dose: 15 ml Losartan Potassium (Losartan Potassium 50 Mg Tablet) 50 mg PO DAILY [facility]; Protocol Last Admin: 05/30/22 07:55 Dose: 50 mg Melatonin (Melatonin 3 Mg Tablet) 6 mg PO BEDTIME PRN PRN Reason: Insomnia Nitroglycerin (Nitroglycerin 0.4 Mg Tab.Subl) 0.4 mg SUBLINGUAL Q5M PRN PRN Reason: Chest Pain Ondansetron HCl (Ondansetron Hcl 4 Mg/2 Ml Vial) 4 mg IVPUSH Q8H PRN PRN Reason: Nausea and Vomiting Pantoprazole Sodium (Pantoprazole Sodium 40 Mg/10 Ml Vial) 40 mg IVPUSH BID@0630,1630 [facility] Last Admin: 05/30/22 07:04 Dose: 40 mg Pharmacy Consult (Consult Rx Perform Med Rec) 1 each MISCELLANE ONCE PRN PRN Reason: Consult order Pyridostigmine Roy (Pyridostigmine Roy 60 Mg Tablet) 60 mg PO TID [facility] Last Admin: 05/30/22 08:01 Dose: Not Given Senna (Sennosides 8.6 Mg Tablet) 17.2 mg PO BEDTIME PRN PRN Reason: Constipation Sodium Chloride (0.9 % Sodium Chloride Flush 3 Ml Syringe) 3 ml IVFLUSH QSHIFT [facility] Last Admin: 05/30/22 08:05 Dose: Not Given Home Medications Medication Instructions Recorded Confirmed Last Taken Type atorvastatin 80 mg tablet 1 tab PO DAILY 05/28/22 05/28/22 05/27/22 History azathioprine 50 mg tablet 2 tab PO DAILY 05/28/22 05/28/22 05/27/22 History gabapentin 300 mg capsule 2 cap PO TID 05/28/22 05/28/22 05/27/22 History isosorbide mononitrate 30 mg 1 tab PO DAILY 05/28/22 05/28/22 05/27/22 History tablet,extended release 24 hr losartan 50 mg tablet 1 tab PO DAILY 05/28/22 05/28/22 05/27/22 History nitroglycerin 0.4 mg sublingual 1 tab sublingual Q5M PRN Chest Pain 05/28/22 05/28/22 Unknown History tablet carvedilol 12.5 mg tablet 1 tab PO BID 05/29/22 05/29/22 Unknown History clindamycin HCl 300 mg capsule 1 cap PO TID 05/29/22 05/29/22 Unknown History hydrochlorothiazide 12.5 mg capsule 1 cap PO DAILY 05/29/22 05/29/22 Unknown History pyridostigmine bromide 60 mg tablet 1 tab PO TID 05/29/22 05/29/22 Unknown History Physical Exam Vital Signs: Vital Signs: Last Vital Signs Temp 96.9 F 05/30/22 15:11 Pulse 68 05/30/22 15:11 Resp 18 05/30/22 15:11 BP 125/60 05/30/22 15:11 Pulse Ox 100 05/30/22 15:11 O2 Del Method 05/30/22 11:47 O2 Flow Rate 3 05/30/22 11:47 BMI result Body Mass Index 26.4 Neuro: Other: He was alert and awake with normal spontaneity of speech fluency comprehension and affect. There was no ptosis. Visual mariscal were full. There was no focal weakness. Deep tendon reflexes were absent with flexor plantars speech was normal Results Labs CBC & Chem 7: 05/30/22 08:02 05/30/22 08:02 Labs: Short CBC 05/30/22 Range/Units 08:02 WBC 8.5 (4.8-10.8) X10*3/uL Hgb 11.7 L (14.0-18.0) g/dl Hct 34.7 L (42.0-52.0) % Plt Count 165 (160-400) X10*3/uL BMP 05/30/22 08:02 Sodium 140 Potassium 4.6 Chloride 102 Carbon Dioxide 28 BUN 16 Creatinine 0.96 Calcium 7.8 L Assessment and Plan (1) Myasthenia gravis: Status: Acute Patient has reported that he suffered from myasthenia gravis diagnosed number of years ago based upon symptoms of ptosis, difficulty speaking and swallowing. He said that he was following a neurologist at [facility] who has retired recently. He has been taking azathioprine but because of the NG tube he has because of GI issues, he was unable to swallow. There was no recent acute myasthenia symptom. My recommendation at this time is to have proper treatment of his GI issues. Treatment of myasthenia can wait at this time, as he has not been taking any medicine for it and there was no acute symptom. To confirm this diagnosis, acetyl choline recepter antibody titers are recommended. Procedures Date of Service Date of Service: 05/30/22
[2022-05-30] MEDS: 0.9 % Sodium Chloride Flush 3 ML SYRINGE IVFLUSH ×2 (16:20→20:29)
[2022-05-31] VITALS (7 sets, daily range): BP systolic 128–149; BP diastolic 62–69; PULSE 69–75; RESP 16–18; TEMP 36.4–36.8; O2SAT 91–97
[2022-05-31] MEDS: Pantoprazole Sodium 40 MG/10 ML VIAL IVPUSH ×2 (06:27→16:49)
[2022-05-31] MEDS: Gabapentin 300 MG CAPSULE 600 MG PO ×3 (09:44→21:08)
[2022-05-31] MEDS: Losartan Potassium 50 MG TABLET PO (09:45)
[2022-05-31] MEDS: Isosorbide Mononitrate 30 MG TAB.ER.24H PO (09:45)
[2022-05-31] MEDS: 0.9 % Sodium Chloride Flush 3 ML SYRINGE IVFLUSH ×3 (09:45→22:43)
[2022-05-31] MEDS: Atorvastatin Calcium 80 MG TABLET PO (09:45)
[2022-05-31] MEDS: Dextrose 5 % 1,000 ML 125 ML IVCONT ×2 (09:46→16:48)
--- NOTE | 2022-05-31 10:19 | HO.PM.IMPN ---
Subjective Subjective Date of Service: 06/01/22 Interval History: Seen in f/u for abdominal pain, n/v, hiatal hernia, gib interval history: He has no pain, he's concern that NGT is not secured probably, has many question about surgery (which I defer to surgeons), and numerous complaints about nursing care and many other Review of Systems no abominal, no confusion Physical Exam Vital Signs: Vital Signs: Last Vital Signs Temp 97.6 F 05/31/22 03:43 Pulse 74 05/31/22 08:00 Resp 16 05/31/22 08:00 BP 149/69 H 05/31/22 08:00 Pulse Ox 97 05/31/22 08:00 O2 Del Method 05/31/22 08:00 O2 Flow Rate 2 05/30/22 23:01 BMI result Body Mass Index 26.4 Const: Other: General: AO X 3, no acute distress HEENT: NGT in with no signficant drainage Resp: CTA bilateral CVS: S1,S2,RRR GI: +BS, NT, no distention Skin: No rash Neuro: motor grossly intact Psych: flat affect Objective Data Active Medications Acetaminophen (Acetaminophen 325 Mg Tablet) 650 mg PO Q6H PRN PRN Reason: Pain, Mild (Pain Scale 1-3) Atorvastatin Calcium (Atorvastatin Calcium 80 Mg Tablet) 80 mg PO DAILY [facility] Last Admin: 05/31/22 09:45 Dose: 80 mg Documented By: MERCEDES Gabapentin (Gabapentin 300 Mg Capsule) 600 mg PO TID [facility] Last Admin: 05/31/22 09:44 Dose: 600 mg Documented By: MERCEDES Hydromorphone HCl (Hydromorphone Hcl 0.5 Mg/0.5 Ml Syringe) 0.5 mg IVPUSH Q4H PRN; Protocol PRN Reason: Breakthrough Pain Last Admin: 05/29/22 14:11 Dose: 0.5 mg Documented By: IVIS Dextrose (D5w) 1,000 mls @ 125 mls/hr IVCONT .Q8H [facility] Last Admin: 05/31/22 09:46 Dose: 125 mls/hr Documented By: MERCEDES Isosorbide Mononitrate (Isosorbide Mononitrate 30 Mg Tab.Er.24h) 30 mg PO DAILY [facility]; Protocol Last Admin: 05/31/22 09:45 Dose: 30 mg Documented By: MERCEDES Lidocaine HCl (Lidocaine Hcl Viscous 2 % 15 Ml Solution) 15 ml MUCOUS MEM Q3H PRN PRN Reason: Sore Throat Last Admin: 05/29/22 14:11 Dose: 15 ml Documented By: IVIS Losartan Potassium (Losartan Potassium 50 Mg Tablet) 50 mg PO DAILY [facility]; Protocol Last Admin: 05/31/22 09:45 Dose: 50 mg Documented By: MERCEDES Melatonin (Melatonin 3 Mg Tablet) 6 mg PO BEDTIME PRN PRN Reason: Insomnia Nitroglycerin (Nitroglycerin 0.4 Mg Tab.Subl) 0.4 mg SUBLINGUAL Q5M PRN PRN Reason: Chest Pain Ondansetron HCl (Ondansetron Hcl 4 Mg/2 Ml Vial) 4 mg IVPUSH Q8H PRN PRN Reason: Nausea and Vomiting Pantoprazole Sodium (Pantoprazole Sodium 40 Mg/10 Ml Vial) 40 mg IVPUSH BID@0630,1630 [facility] Last Admin: 05/31/22 06:27 Dose: 40 mg Documented By: ANTOIC Pharmacy Consult (Consult Rx Perform Med Rec) 1 each MISCELLANE ONCE PRN PRN Reason: Consult order Pyridostigmine [place] (Pyridostigmine [place] 60 Mg Tablet) 60 mg PO TID [facility] Last Admin: 05/31/22 09:50 Dose: Not Given Documented By: MERCEDES Non-Admin Reason: Patient Refused Senna (Sennosides 8.6 Mg Tablet) 17.2 mg PO BEDTIME PRN PRN Reason: Constipation Sodium Chloride (0.9 % Sodium Chloride Flush 3 Ml Syringe) 3 ml IVFLUSH QSHIFT [facility] Last Admin: 05/31/22 09:45 Dose: 3 ml Documented By: MERCEDES Labs CBC & Chem 7: 05/31/22 10:33 05/31/22 10:33 Labs: Laboratory Results - last 24 hr 05/30/22 05/30/22 15:29 15:29 Estimat Average Glucose 100 Hemoglobin A1c % 5.1 Prealbumin 10.0 L Assessment and Plan (1) Large hiatal hernia: Status: Acute (2) Acute GI bleeding: Status: Acute (3) Abdominal pain: Status: Acute Plan 76-year-old male with a past medical history of CAD, CHF with EF of 25-30% status post AICD, myasthenia gravis, obesity, paraesophageal hernia, giant inguinal hernia presented to the hospital today with a chief complaint of nausea/vomiting/abdominal pain.? Noted to have following conditions: Coffee-ground emesis: H and H has been stable, check today continue IV PPI NPO GI has seen him with the following by Dr. Robison 1/ Recommend thoracic surgery consult today for further assessment in case needs surgical therapy 2/ would hold off on EGD, if really needs diagnostic testing then ba swallow and follow thru 3/ optimize cardiac and neurological status, given co morbidities, higher chance of surgical risk, has had plasmapharesis in past for MG. 4/ would keep on PPI e.g IV pantoprazole 40 mg BID Nausea/vomiting/abdominal pain: ?CT abdomen showed moderate large hiatal hernia with half of the stomach around the top of the diaphragm. CT also showed large inguinal hernia containing sigmoid and descending colon.? Small infraumbilical midline hernia containing intraperitoneal fat. Patient reported that he has been passing gas.? Thoracic made the following recommendation: keep him with NGT for at least another 24-48 hours. Then we will probably say clamp the tube for a trial to see if symptoms return. Then prior to discharge he is going to need a couple days of clear liquids to make sure tolerates. If he doesn?t pass these tests will need surgery for the hiatal hernia this admission. If he does well then we will set him up for eval for elective surgery as an outpatient. Going to be here for probablyyy at least 3-4 days for our tests/eval before he will be ok to go home. [place] message from Martha Hughes 05/30/22 -Will follow other recommendation from surgery re further imaging ie repeat CT or uppper GI series -IVF while NPO continue NGT Elevated troponins:--trended down, cardiology recommends no further w/u Hyperkalemia--repeat lab today and [facility] History of Myastenia G... continue meds and consider Neuro consult History of CHF:? EF of 25-30% status post AICD currently euvolemic.? Repeat Echo 05/30 EF 20 to 25 History of myasthenia gravis:?home Azathioprine, Pyridostigmine on hold due to NPO status, ? DVT prophylaxis: SCD boots Code status: Full code Need for inpatient: Management of hiatal Hernia with stomach in chest and high risk for incarceration and being closely monitored and may need surgery if symptoms not resolved conservatively Try to reach out to son and got the wrong number Quality Stroke Does the patient have a stroke diagnosis?: No VTE Prior VTE?: No VTE Risk Level:: Medical - moderate - high VTE Device Contraindication: N/A - Device Ordered VTE Drug Contraindication: Treatment Not Indicated
[2022-05-31 10:46] LABS: Hematocrit 33.1 % (42.0-52.0); Hemoglobin 11.3 g/dl (14.0-18.0); Mean Corpuscular HGB Conc 34.1 g/dl (31.0-36.0); Mean Corpuscular Hemoglobin 32.6 pg (27.0-33.0); Mean Corpuscular Volume 95.4 fL (80.0-98.0); Mean Platelet Volume 9.8 fL (9.4-12.4); Platelet Count 177 X10*3/uL (160-400); Red Blood Count 3.47 X10*6/uL (4.60-5.80); White Blood Count 7.5 X10*3/uL (4.8-10.8)
[2022-05-31 11:06] LABS: Anion Gap 15 (12-20); Blood Urea Nitrogen 17 mg/dL (9-16); Carbon Dioxide 27 mmol/L (22-29); Chloride 102 mmol/L (96-108); Creatinine Clr Calc Pharmacy 81.9; Estimated Glomerular Filt Rate > 60; Glucose Random 103 mg/dL (60-115); Potassium 4.1 mmol/L (3.3-5.1); Sodium 140 mmol/L (135-145)
--- NOTE | 2022-05-31 11:42 | MHC.CM.PN ---
Per ROUNDS discussion, Patient is not yet medically cleared for dc (IV Protonix, NPO/NGT, needs PT eval); STR appears likely but CM will continue to follow to finalize dc plan.
--- NOTE | 2022-05-31 16:16 | P.PNTS_ITS ---
Subjective Subjective Date of Service: 05/31/22 Interval history: Patient was seen and examined this afternoon. During my examination his NG tube was taken off suction as nursing had to advance tube to correct for placement based off of chest x-ray findings. He remains NPO. He states that his abdominal pain, nausea and vomiting have now stopped. Nursing was informed to clamp NG tube now and to continue with clamp trial overnight for possible removal tomorrow. Patient denies any fevers, chills, shortness of breath and remaining 10 point review of systems negative at this time. Physical Exam Vital Signs: Vital Signs: Last Vital Signs Temp 98.0 F 05/31/22 14:53 Pulse 70 05/31/22 14:53 Resp 18 05/31/22 14:53 BP 137/62 05/31/22 14:53 Pulse Ox 93 05/31/22 14:53 O2 Del Method 05/31/22 14:53 O2 Flow Rate 3 05/31/22 11:35 BMI result Body Mass Index 26.4 Const: Other: General: AO X 3, no acute distress HEENT: NGT in with no signficant drainage, now clamped Resp: CTA bilateral CVS: S1,S2,RRR GI: +BS, NT, no distention Skin: No rash Neuro: motor grossly intact Psych: flat affect Neuro: Other: He was alert and awake with normal spontaneity of speech fluency comprehension and affect. There was no ptosis. Visual mariscal were full. There was no focal weakness. Deep tendon reflexes were absent with flexor plantars speech was normal Procedures Date of Service Date of Service: 05/31/22 Progress Note: A&P Assessment and plan (1) Large hiatal hernia: Status: Acute Assessment and Plan: Mr. Mendoza is a 76 year old male who presented with an approximately 2 week history of abdominal pain, nausea, retching, and the inability to tolerate much PO. Found to have a large hiatal hernia with dilation of the stomach above and below the diaphragm. * NG tube taken off suction this afternoon and clamped. * If Patient tolerates clamping trial will likely remove NGT tomorrow.. * Keep strictly NPO for now. * Once NGT no longer needed will plan to start clear liquid diet (no straws, no carbonated beverages) for ~2days. If tolerates this patient will likely not require any surgical intervention this admission and can be discharged on a f ull liquid diet with instructions to increase to a soft diet in about a week. If discharged, patient will followup with Dr. Babin as an outpatient to discuss surgical repair on an elective basis. * If patient cannot tolerate NGT removal or PO intake he will need hernia repair this admission. There is a cxr from 01/2022 that shows a large hiatal hernia. There is a CT scan from 2016 that also shows a large paraesophageal hernia with the whole stomach in the chest mostly to the left. In [address] chest that shows a small hiatal hernia only with omental fat. Goal of management is to decompress the stomach and eventually get him to the point where he can tolerate liquids. Ideally we can cool him off in this way and get him discharged so that he can be evaluated for surgical repair on an elective basis as an outpatient Thank you for the consultation. Case discussed with Dr. Babin. We will follow along with you. . (2) Acute GI bleeding: Status: Acute (3) Abdominal pain: Status: Acute Time Spent With Patient Time: Total time spent is greater than 50% in coordination of care (as documented) at patient's floor/unit and/or counseling patient: Quality Stroke Does the patient have a stroke diagnosis?: No VTE Prior VTE?: No VTE Risk Level:: Medical - moderate - high VTE Device Contraindication: N/A - Device Ordered VTE Drug Contraindication: Treatment Not Indicated
--- NOTE | 2022-05-31 18:29 | PM.EVENT ---
Event Note Date of Service: 05/31/22 Event Note: RN notified patient had 37 beats of V-tach patient remained asymptomatic, vitals stable Patient denies chest pain, no palpitation denies abdominal pain complaining of sore throat due to NG tube ,hoping to be started on diet if no further episodes of nausea vomiting since NG tube has been clamped Patient has known known low EF 20-25% and inferior/apical wall akinesis EF patient has AICD/potassium 4.1, will check magnesium level, troponin elevated but flat On examination vitals Abdominal exam benign Heart regular Assessment plan Continue tele monitor, will discuss further medication management with Cardiology need to be on beta-blockers
[2022-05-31 18:33] LABS: Magnesium 1.9 mg/dL (1.6-2.6)
[2022-05-31] MEDS: Amiodarone HCL 900 MG in 0.9 % Sodium Chloride 500 ML 34.53 MG IVCONT (21:30)
[2022-05-31] MEDS: Dextrose 5 % and 0.45 % NaCl 1,000 ML 100 ML IVCONT (21:30)
[2022-05-31] MEDS: Amiodarone/Dextrose 150 MG/100 ML PLAST..BAG 600 MG IV (21:30)
[2022-05-31] MEDS: ondansetron HCL 4 MG/2 ML VIAL IVPUSH (22:43)
[2022-06-01 03:28] VITALS: BP 139/70; PULSE 77; RESP 18; TEMP 36.6; O2SAT 92
[2022-06-01] MEDS: Dextrose 5 % and 0.45 % NaCl 1,000 ML 100 ML IVCONT ×2 (06:11→17:01)
[2022-06-01] MEDS: Pantoprazole Sodium 40 MG/10 ML VIAL IVPUSH ×2 (06:11→16:46)
[2022-06-01 07:20] VITALS: BP 146/71; PULSE 71; RESP 16; TEMP 36.8; O2SAT 95
[2022-06-01] MEDS: Gabapentin 300 MG CAPSULE 600 MG PO ×3 (09:19→20:51)
[2022-06-01] MEDS: Atorvastatin Calcium 80 MG TABLET PO (09:19)
[2022-06-01] MEDS: Isosorbide Mononitrate 30 MG TAB.ER.24H PO (09:20)
[2022-06-01] MEDS: Losartan Potassium 50 MG TABLET PO (09:20)
[2022-06-01] MEDS: 0.9 % Sodium Chloride Flush 3 ML SYRINGE IVFLUSH ×2 (09:21→20:51)
--- NOTE | 2022-06-01 09:46 | P.PNIM_ITS ---
Subjective Subjective Date of Service: 06/01/22 Interval History: Seen in f/u for abdominal pain, n/v, hiatal hernia, gib interval history: He has no pain, NGT clamped since yesterday Review of Systems no n/v, no abd pain Physical Exam Vital Signs: Vital Signs: Last Vital Signs Temp 98.3 F 06/01/22 07:20 Pulse 71 06/01/22 07:20 Resp 16 06/01/22 07:20 BP 146/71 H 06/01/22 07:20 Pulse Ox 95 06/01/22 07:20 O2 Del Method 06/01/22 07:20 O2 Flow Rate 3 05/31/22 11:35 BMI result Body Mass Index 26.4 Const: Other: General: AO X 3, no acute distress HEENT: NGT in with no signficant drainage Resp: CTA bilateral CVS: S1,S2,RRR GI: +BS, NT, no distention Skin: No rash Neuro: motor grossly intact Psych: flat affect Objective Data Active Medications Acetaminophen (Acetaminophen 325 Mg Tablet) 650 mg PO Q6H PRN PRN Reason: Pain, Mild (Pain Scale 1-3) Atorvastatin Calcium (Atorvastatin Calcium 80 Mg Tablet) 80 mg PO DAILY [facility] Last Admin: 06/01/22 09:19 Dose: 80 mg Documented By: EFREN Gabapentin (Gabapentin 300 Mg Capsule) 600 mg PO TID [facility] Last Admin: 06/01/22 09:19 Dose: 600 mg Documented By: EFREN Hydromorphone HCl (Hydromorphone Hcl 0.5 Mg/0.5 Ml Syringe) 0.5 mg IVPUSH Q4H PRN; Protocol PRN Reason: Breakthrough Pain Last Admin: 05/29/22 14:11 Dose: 0.5 mg Documented By: IVIS Dextrose/Sodium Chloride (D51/2ns) 1,000 mls @ 100 mls/hr IVCONT .Q10H [facility] Last Admin: 06/01/22 06:11 Dose: 100 mls/hr Documented By: RASHEL Amiodarone HCl 900 mg/ Sodium (Chloride) 518 mls @ 34.533 mls/hr IVCONT .Q15H1M [facility]; Protocol Last Infusion: 06/01/22 03:06 Dose: 0.5 mg/min, 17.27 mls/hr Documented By: RASHEL Isosorbide Mononitrate (Isosorbide Mononitrate 30 Mg Tab.Er.24h) 30 mg PO DAILY [facility]; Protocol Last Admin: 06/01/22 09:20 Dose: 30 mg Documented By: EFREN Lidocaine HCl (Lidocaine Hcl Viscous 2 % 15 Ml Solution) 15 ml MUCOUS MEM Q3H PRN PRN Reason: Sore Throat Last Admin: 05/29/22 14:11 Dose: 15 ml Documented By: IVIS Losartan Potassium (Losartan Potassium 50 Mg Tablet) 50 mg PO DAILY [facility]; Protocol Last Admin: 06/01/22 09:20 Dose: 50 mg Documented By: EFREN Melatonin (Melatonin 3 Mg Tablet) 6 mg PO BEDTIME PRN PRN Reason: Insomnia Nitroglycerin (Nitroglycerin 0.4 Mg Tab.Subl) 0.4 mg SUBLINGUAL Q5M PRN PRN Reason: Chest Pain Ondansetron HCl (Ondansetron Hcl 4 Mg/2 Ml Vial) 4 mg IVPUSH Q8H PRN PRN Reason: Nausea and Vomiting Last Admin: 05/31/22 22:43 Dose: 4 mg Documented By: GRETA Pantoprazole Sodium (Pantoprazole Sodium 40 Mg/10 Ml Vial) 40 mg IVPUSH BID@0630,1630 [facility] Last Admin: 06/01/22 06:11 Dose: 40 mg Documented By: RASHEL Pharmacy Consult (Consult Rx Perform Med Rec) 1 each MISCELLANE ONCE PRN PRN Reason: Consult order Pyridostigmine [place] (Pyridostigmine [place] 60 Mg Tablet) 60 mg PO TID [facility] Last Admin: 06/01/22 09:18 Dose: 60 mg Documented By: EFREN Senna (Sennosides 8.6 Mg Tablet) 17.2 mg PO BEDTIME PRN PRN Reason: Constipation Sodium Chloride (0.9 % Sodium Chloride Flush 3 Ml Syringe) 3 ml IVFLUSH QSHIFT [facility] Last Admin: 06/01/22 09:21 Dose: 3 ml Documented By: EFREN Labs CBC & Chem 7: 05/31/22 10:33 05/31/22 10:33 Labs: Laboratory Results - last 24 hr 08/19/22 08/19/22 10:33 10:33 MCV 95.4 MCH 32.6 MCHC 34.1 RDW 14.0 Plt Count 177 MPV 9.8 Absolute Nucleated RBC 0.000 Nucleated RBC % (auto) 0.0 Anion Gap 15 Estim Creat Clear Calc 81.9 Estimated GFR > 60 Random Glucose 103 Calcium 8.0 L Magnesium 1.9 Assessment and Plan (1) Large hiatal hernia: Status: Acute (2) Acute GI bleeding: Status: Acute (3) Abdominal pain: Status: Acute Plan 76-year-old male with a past medical history of CAD, CHF with EF of 25-30% status post AICD, myasthenia gravis, obesity, paraesophageal hernia, giant inguinal hernia presented to the hospital today with a chief complaint of nause a/vomiting/abdominal pain.? Noted to have following conditions: Coffee-ground emesis: H and H has been stable, check today continue IV PPI NPO GI has seen him with the following by Dr. Robison 1/ Recommend thoracic surgery consult today for further assessment in case needs surgical therapy 2/ would hold off on EGD, if really needs diagnostic testing then ba swallow and follow thru 3/ optimize cardiac and neurological status, given co morbidities, higher chance of surgical risk, has had plasmapharesis in past for MG. 4/ would keep on PPI e.g IV pantoprazole 40 mg BID Nausea/vomiting/abdominal pain: ?CT abdomen showed moderate large hiatal hernia with half of the stomach around the top of the diaphragm. CT also showed large inguinal hernia containing sigmoid and descending colon.? Small infraumbilical midline hernia containing intraperitoneal fat. Patient reported that he has been passing gas.? Thoracic made the following recommendation as of yesterday: * NG tube taken off suction this afternoon and clamped. * If Patient tolerates clamping trial will likely remove NGT tomorrow.. * Keep strictly NPO for now. * Once NGT no longer needed will plan to start clear liquid diet (no straws, no carbonated beverages) for ~2days.? If tolerates this patient will likely not require any surgical intervention this admission and can be discharged on a full liquid diet with instructions to increase to a soft diet in about a week.? If discharged, patient will followup with Dr. Babin as an outpatient to discuss surgical repair on an elective basis. * If patient cannot tolerate NGT removal or PO intake he will need hernia repair this admission. Elevated troponins:--trended down, cardiology recommends no further w/u Hyperkalemia--[facility] History of Myastenia G... continue meds and consider Neuro consult History of CHF:? EF of 25-30% status post AICD currently euvolemic.? Repeat Echo 05/30 EF 20 to 25 History of myasthenia gravis:?home Azathioprine, Pyridostigmine on hold due to NPO status, ? DVT prophylaxis: SCD boots Code status: Full code Need for inpatient: Management of hiatal Hernia with stomach in chest and high risk for incarceration and being closely monitored and may need surgery if symptoms not resolved conservatively Try to reach out to son and got the wrong number Quality Stroke Does the patient have a stroke diagnosis?: No VTE Prior VTE?: No VTE Risk Level:: Medical - moderate - high VTE Device Contraindication: N/A - Device Ordered VTE Drug Contraindication: Treatment Not Indicated
[2022-06-01 11:54] VITALS: BP 144/66; PULSE 67; RESP 16; TEMP 36.9; O2SAT 94
--- NOTE | 2022-06-01 12:02 | PM.PNCARD ---
Subjective Subjective Date of Service: 06/01/22 Interval history: Episode of nonsustained ventricular tachycardia overnight. Given cardiomyopathy and low ejection fraction was started on amiodarone. He is unable to take p.o. medications consistently so he is currently on amiodarone drip. Physical Exam Vital Signs: Last Vital Signs Temp 98.4 F 06/01/22 11:54 Pulse 67 06/01/22 11:54 Resp 16 06/01/22 11:54 BP 144/66 H 06/01/22 11:54 Pulse Ox 94 06/01/22 11:54 O2 Del Method 06/01/22 11:54 O2 Flow Rate 3 05/31/22 11:35 BMI result Body Mass Index 26.4 GENERAL APPEARANCE: Distressed due to NG tube. NECK: no carotid bruit, no jugular venous distention. SKIN: no suspicious lesions, warm and dry. HEART: no murmurs, regular rate and rhythm. LUNGS: Few crackles at bases. ABDOMEN: soft, nontender. EXTREMITIES: no edema. PERIPHERAL PULSES: equal. NEUROLOGIC: No gross deficits, AAO X 3 Objective Labs and Meds Result diagrams: 05/31/22 10:33 05/31/22 10:33 Lab results: Laboratory Results - last 24 hr 05/31/22 10:33 Magnesium 1.9 Progress Note: A&P Assessment and plan (1) Cardiomyopathy: Status: Acute (2) Elevated troponin: Status: Acute (3) NSVT (nonsustained ventricular tachycardia): Status: Acute Plan 76-year-old gentleman who has known history of coronary disease with previous anterior wall AL and ischemic cardiomyopathy status post ICD is presenting large hiatal hernia and is being managed by thoracic surgery and may require surgical input in case he cannot tolerate p.o. intake. He developed nonsustained ventricular tachycardia overnight. He does not have any symptoms. She denies any shortness of breath or abdomen heart failure. He is not a clinically overloaded. The basal crackles are likely due to atelectasis and he will benefit from incentive spirometry. If able to tolerate p.o. then please start oral amiodarone 400 mg daily times 10 days followed by 200 mg daily. Thank you for allowing me to participate in the care of your patient. Please feel free to contact me if you have any questions. Time Spent With Patient Time: Total time spent is greater than 50% in coordination of care (as documented) at patient's floor/unit and/or counseling patient: Progress Note: Quality Stroke Does the patient have a stroke diagnosis?: No Procedures Date of Service Date of Service: 06/01/22
--- NOTE | 2022-06-01 13:12 | P.PNTS_ITS ---
Subjective Subjective Date of Service: 06/01/22 Interval history: Patient feeling well today. NGT has been clamped since yesterday and patient denies any nausea or abdominal pain. Denies any of the same symptoms that brought him to the hospital. Main complaint at this point is heartburn that he states he gets whenever they give me the pills without Prilosec . Denies any other complaints such as fever, chills, chest pain, bloating, dizziness, lightheadedness. Physical Exam Vital Signs: Vital Signs: Last Vital Signs Temp 98.4 F 06/01/22 11:54 Pulse 67 06/01/22 11:54 Resp 16 06/01/22 11:54 BP 144/66 H 06/01/22 11:54 Pulse Ox 94 06/01/22 11:54 O2 Del Method 06/01/22 11:54 O2 Flow Rate 3 05/31/22 11:35 BMI result Body Mass Index 26.4 General: No acute distress, resting comfortably in bed Head: Normocephalic, atraumatic, symmetric Eyes: Sclera anicteric, eyelids without edema or erythema, +EOMS intact ENT: Oral mucosa and tongue are moist. NGT clamped. Neck: Soft, supple, symmetric, trachea midline, no crepitus Cardiovascular: Regular rate and rhythm, no murmur/rubs/gallops, BUE and BLE without edema, no calf tenderness bilaterally Respiratory: Lungs CTA B, breathing nonlabored, speaking in full sentences, on room air. No use of accessory muscles. Gastrointestinal: Soft, non-tender, non-distended, +normoactive bowel sounds. Skin: Warm and dry throughout, no rashes Neurological: Alert and oriented x 3, no focal neurological deficit noted Psychiatric: no agitation, appropriate affect Procedures Date of Service Date of Service: 06/01/22 Progress Note: A&P Assessment and plan (1) Paraesophageal hernia: Status: Acute Assessment and Plan: Mr. Mendoza is a 76 year old male who presented with an approximately 2 week history of abdominal pain, nausea, retching, and the inability to tolerate much PO.? Found to have a large hiatal hernia with dilation of the stomach above and below the diaphragm. * NGT clamped since yesterday without any recurrence of symptoms. * OK to remove NGT now. * Start clear liquid diet. NO carbonated beverages and NO straws. * Will continue clear liquid for about 2 days, and if tolerates will advance to fulls. ?Friday * If tolerates this patient will likely not require any surgical intervention this admission and can be discharged on a full liquid diet with instructions to increase to a soft diet in about a week.? If discharged, patient will followup with Dr. Babin as an outpatient to discuss surgical repair on an elective basis. * If patient cannot tolerate NGT removal or PO intake he will need hernia repair this admission. Time Spent With Patient Time: Total time spent is greater than 50% in coordination of care (as documented) at patient's floor/unit and/or counseling patient: Quality Stroke Does the patient have a stroke diagnosis?: No VTE Prior VTE?: No VTE Risk Level:: Medical - moderate - high VTE Device Contraindication: N/A - Device Ordered VTE Drug Contraindication: Treatment Not Indicated
[2022-06-01 15:22] VITALS: BP 138/65; PULSE 65; RESP 16; TEMP 36.6; O2SAT 92
--- NOTE | 2022-06-01 16:15 | PC.NURSE ---
Pt NG tube remained clamped. Pt denies nausea, vomiting, abd pain. Per Thoracic surgery pt NG Tube was removed 13:45 and diet advanced to clear liquids, no straws, no carbonated beverages.
[2022-06-01 18:58] VITALS: BP 132/61; PULSE 70; RESP 20; TEMP 37.1; O2SAT 95
[2022-06-01] MEDS: Acetaminophen 325 MG TABLET 650 MG PO (20:51)
[2022-06-01] MEDS: Amiodarone HCL 900 MG in 0.9 % Sodium Chloride 500 ML 17.27 MG IVCONT (21:03)
[2022-06-01 23:23] VITALS: BP 134/65; PULSE 65; RESP 16; TEMP 36.2; O2SAT 95
[2022-06-02 03:05] VITALS: BP 131/60; PULSE 69; RESP 20; TEMP 36.4; O2SAT 93
[2022-06-02] MEDS: Acetaminophen 325 MG TABLET 650 MG PO (07:34)
[2022-06-02 07:45] VITALS: BP 147/70; PULSE 82; RESP 12; TEMP 36.4; O2SAT 95
--- NOTE | 2022-06-02 07:47 | P.PNIM_ITS ---
Subjective Subjective Date of Service: 06/03/22 Interval History: Seen in f/u for abdominal pain, n/v, hiatal hernia, gib interval history: No gi issues, tolerating liquid diet, lost IV access ofvernight, c/o right wrist pain from IV being yanked accidentally. Review of Systems no nausea or vomitting, wrist pain Physical Exam Vital Signs: Vital Signs: Last Vital Signs Temp 97.6 F 06/02/22 07:45 Pulse 82 06/02/22 07:45 Resp 12 06/02/22 07:45 BP 147/70 H 06/02/22 07:45 Pulse Ox 95 06/02/22 07:45 O2 Del Method 06/02/22 07:45 O2 Flow Rate 3 05/31/22 11:35 BMI result Body Mass Index 26.4 General: No acute distress, resting comfortably in bed ENT no longer has NGT Cardiovascular: Regular rate and rhythm, no murmur/rubs/gallops, BUE and BLE without edema, no calf tenderness bilaterally Respiratory: Lungs CTA B, breathing nonlabored, speaking in full sentences, on room air. No use of accessory muscles. Gastrointestinal: Soft, non-tender, non-distended, +normoactive bowel sounds. Skin: Warm and dry throughout, no rashes Neurological: Alert and oriented x 3, no focal neurological deficit noted Psychiatric: no agitation, appropriate affect Objective Data Active Medications Acetaminophen (Acetaminophen 325 Mg Tablet) 650 mg PO Q6H PRN PRN Reason: Pain, Mild (Pain Scale 1-3) Last Admin: 06/02/22 07:34 Dose: 650 mg Documented By: ISHAAN Atorvastatin Calcium (Atorvastatin Calcium 80 Mg Tablet) 80 mg PO DAILY [facility] Last Admin: 06/01/22 09:19 Dose: 80 mg Documented By: EFREN Gabapentin (Gabapentin 300 Mg Capsule) 600 mg PO TID [facility] Last Admin: 06/01/22 20:51 Dose: 600 mg Documented By: CASEY Hydromorphone HCl (Hydromorphone Hcl 0.5 Mg/0.5 Ml Syringe) 0.5 mg IVPUSH Q4H PRN; Protocol PRN Reason: Breakthrough Pain Last Admin: 05/29/22 14:11 Dose: 0.5 mg Documented By: IVIS Dextrose/Sodium Chloride (D51/2ns) 1,000 mls @ 100 mls/hr IVCONT .Q10H [facility] Last Infusion: 06/01/22 20:58 Dose: 0 mls/hr Documented By: CASEY Amiodarone HCl 900 mg/ Sodium (Chloride) 518 mls @ 34.533 mls/hr IVCONT .Q15H1M [facility]; Protocol Last Infusion: 06/02/22 06:40 Dose: 0 mg/min, 0 mls/hr Documented By: AMANDA Isosorbide Mononitrate (Isosorbide Mononitrate 30 Mg Tab.Er.24h) 30 mg PO DAILY [facility]; Protocol Last Admin: 06/01/22 09:20 Dose: 30 mg Documented By: EFREN Lidocaine HCl (Lidocaine Hcl Viscous 2 % 15 Ml Solution) 15 ml MUCOUS MEM Q3H PRN PRN Reason: Sore Throat Last Admin: 05/29/22 14:11 Dose: 15 ml Documented By: IVIS Losartan Potassium (Losartan Potassium 50 Mg Tablet) 50 mg PO DAILY [facility]; Protocol Last Admin: 06/01/22 09:20 Dose: 50 mg Documented By: EFREN Melatonin (Melatonin 3 Mg Tablet) 6 mg PO BEDTIME PRN PRN Reason: Insomnia Nitroglycerin (Nitroglycerin 0.4 Mg Tab.Subl) 0.4 mg SUBLINGUAL Q5M PRN PRN Reason: Chest Pain Ondansetron HCl (Ondansetron Hcl 4 Mg/2 Ml Vial) 4 mg IVPUSH Q8H PRN PRN Reason: Nausea and Vomiting Last Admin: 05/31/22 22:43 Dose: 4 mg Documented By: GRETA Pantoprazole Sodium (Pantoprazole Sodium 40 Mg/10 Ml Vial) 40 mg IVPUSH BID@0630,1630 [facility] Last Admin: 06/02/22 06:30 Dose: Not Given Documented By: AMANDA Non-Admin Reason: No Access Pharmacy Consult (Consult Rx Perform Med Rec) 1 each MISCELLANE ONCE PRN PRN Reason: Consult order Pyridostigmine [place] (Pyridostigmine [place] 60 Mg Tablet) 60 mg PO TID [facility] Last Admin: 06/01/22 20:51 Dose: Not Given Documented By: CASEY Non-Admin Reason: Patient Refused Senna (Sennosides 8.6 Mg Tablet) 17.2 mg PO BEDTIME PRN PRN Reason: Constipation Sodium Chloride (0.9 % Sodium Chloride Flush 3 Ml Syringe) 3 ml IVFLUSH QSHIFT [facility] Last Admin: 06/01/22 20:51 Dose: 3 ml Documented By: CASEY Labs CBC & Chem 7: 05/31/22 10:33 05/31/22 10:33 Assessment and Plan (1) Large hiatal hernia: Status: Acute (2) Acute GI bleeding: Status: Acute (3) Abdominal pain: Status: Acute Plan 76-year-old male with a past medical history of CAD, CHF with EF of 25-30% status post AICD, myasthenia gravis, obesity, paraesophageal hernia, giant inguinal hernia presented to the hospital today with a chief complaint of nausea/vomiting/abdominal pain.? Noted to have following conditions: #Coffee-ground emesis: resolved. H/H has been stable GI has seen him with the following by Dr. Robiosn 1/ Recommend thoracic surgery consult today for further assessment in case needs surgical therapy 2/ would hold off on EGD, if really needs diagnostic testing then ba swallow and follow thru 3/ optimize cardiac and neurological status, given co morbidities, higher chance of surgical risk, has had plasmapharesis in past for MG. 4/ would keep on PPI e.g IV pantoprazole 40 mg BID -Will now transition to oral PPI #Nausea/vomiting/abdominal pain: ?CT abdomen showed moderate large hiatal hernia with half of the stomach around the top of the diaphragm. CT also showed large inguinal hernia containing sigmoid and descending colon.? Small infraumbilical midline hernia containing intraperitoneal fat. Thoracic surgery has been following and here is their and their last recommendation was removal NGT 06/01 and trial of liquid diet x 2 days. #Ventricular arrythmia--had 37 beat of Vtach on 05/31, mag and K were normal. Cardiology recommended amio gtt, followed by 400 mg daily (D1/10) x 10, then 200 mg daily thereafter #Elevated troponins:--trended down, cardiology recommends no further w/u #Hyperkalemia--most recent K is normal. #History of Myastenia G... continue meds and consider Neuro has seen him #History of CHF:? EF of 25-30% status post AICD currently euvolemic.? Repeat Echo 05/30 EF 20 to 25 #History of myasthenia gravis:?home Azathioprine, Pyridostigmine on hold due to NPO status, ? DVT prophylaxis: SCD boots Code status: Full code Need for inpatient: Management of hiatal Hernia with stomach in chest and high risk for incarceration and being closely monitored and may need surgery if symptoms not resolved conservatively Try to reach out to son and got the wrong number Quality Stroke Does the patient have a stroke diagnosis?: No VTE Prior VTE?: No VTE Risk Level:: Medical - moderate - high VTE Device Contraindication: N/A - Device Ordered VTE Drug Contraindication: Treatment Not Indicated
[2022-06-02] MEDS: HYDROmorphone HCl 0.5 MG/0.5 ML SYRINGE SUBCUT (09:28)
[2022-06-02] MEDS: Amiodarone HCL 200 MG TABLET 400 MG PO (09:30)
[2022-06-02] MEDS: Isosorbide Mononitrate 30 MG TAB.ER.24H PO (09:30)
[2022-06-02] MEDS: Gabapentin 300 MG CAPSULE 600 MG PO ×3 (09:30→20:24)
[2022-06-02] MEDS: Losartan Potassium 50 MG TABLET PO (09:31)
[2022-06-02] MEDS: Atorvastatin Calcium 80 MG TABLET PO (09:31)
[2022-06-02] MEDS: Omeprazole 40 MG CAPSULE.DR PO ×2 (09:31→16:16)
[2022-06-02 11:56] VITALS: BP 105/57; PULSE 66; RESP 12; TEMP 36.4; O2SAT 95
[2022-06-02 16:00] VITALS: BP 112/56; PULSE 64; RESP 20; TEMP 36.4; O2SAT 95
[2022-06-02] MEDS: 0.9 % Sodium Chloride Flush 3 ML SYRINGE IVFLUSH ×2 (16:17→20:24)
[2022-06-02 20:00] VITALS: BP 118/58; PULSE 69; RESP 12; TEMP 36.6; O2SAT 96
[2022-06-02] MEDS: HYDROmorphone HCl 0.5 MG/0.5 ML SYRINGE IVPUSH (20:32)
[2022-06-02 23:14] VITALS: BP 119/58; PULSE 64; RESP 18; TEMP 36.6; O2SAT 95
[2022-06-03] VITALS (7 sets, daily range): BP systolic 111–150; BP diastolic 57–70; PULSE 65–75; RESP 17–20; TEMP 36.2–36.8; O2SAT 94–96
[2022-06-03] MEDS: HYDROmorphone HCl 0.5 MG/0.5 ML SYRINGE IVPUSH ×2 (01:37→12:43)
[2022-06-03] MEDS: Omeprazole 40 MG CAPSULE.DR PO ×2 (05:33→16:38)
--- NOTE | 2022-06-03 09:39 | P.PNIM_ITS ---
Subjective Subjective Date of Service: 06/03/22 Interval History: Seen in f/u for abdominal pain, n/v, hiatal hernia, gib interval history: Very pleasant this morning, with no new issues, feels constiapated, has some reflux. Tolerating diet. Review of Systems no nausea or vomitting, wrist pain Physical Exam Vital Signs: Vital Signs: Last Vital Signs Temp 97.1 F 06/03/22 07:28 Pulse 66 06/03/22 07:28 Resp 20 06/03/22 07:28 BP 125/62 06/03/22 07:28 Pulse Ox 95 06/03/22 07:28 O2 Del Method 06/03/22 07:28 O2 Flow Rate 3 05/31/22 11:35 BMI result Body Mass Index 26.4 Objective Data Active Medications Acetaminophen (Acetaminophen 325 Mg Tablet) 650 mg PO Q6H PRN PRN Reason: Pain, Mild (Pain Scale 1-3) Last Admin: 06/02/22 07:34 Dose: 650 mg Documented By: ISHAAN Amiodarone HCl (Amiodarone Hcl 200 Mg Tablet) 400 mg PO DAILY [facility] Stop: 06/11/22 09:01 Last Admin: 06/02/22 09:30 Dose: 400 mg Documented By: EFREN Atorvastatin Calcium (Atorvastatin Calcium 80 Mg Tablet) 80 mg PO DAILY [facility] Last Admin: 06/02/22 09:31 Dose: 80 mg Documented By: EFREN Gabapentin (Gabapentin 300 Mg Capsule) 600 mg PO TID [facility] Last Admin: 06/02/22 20:24 Dose: 600 mg Documented By: ALFONSO Hydromorphone HCl (Hydromorphone Hcl 0.5 Mg/0.5 Ml Syringe) 0.5 mg IVPUSH Q4H PRN; Protocol PRN Reason: Breakthrough Pain Last Admin: 06/03/22 01:37 Dose: 0.5 mg Documented By: ALFONSO Isosorbide Mononitrate (Isosorbide Mononitrate 30 Mg Tab.Er.24h) 30 mg PO DAILY [facility]; Protocol Last Admin: 06/02/22 09:30 Dose: 30 mg Documented By: EFREN Lidocaine HCl (Lidocaine Hcl Viscous 2 % 15 Ml Solution) 15 ml MUCOUS MEM Q3H PRN PRN Reason: Sore Throat Last Admin: 05/29/22 14:11 Dose: 15 ml Documented By: IVIS Losartan Potassium (Losartan Potassium 50 Mg Tablet) 50 mg PO DAILY [facility]; Protocol Last Admin: 06/02/22 09:31 Dose: 50 mg Documented By: EFREN Melatonin (Melatonin 3 Mg Tablet) 6 mg PO BEDTIME PRN PRN Reason: Insomnia Nitroglycerin (Nitroglycerin 0.4 Mg Tab.Subl) 0.4 mg SUBLINGUAL Q5M PRN PRN Reason: Chest Pain Omeprazole (Omeprazole 40 Mg Capsule.) 40 mg PO BID@0630,1630 [facility] Last Admin: 06/03/22 05:33 Dose: 40 mg Documented By: ALFONSO Ondansetron HCl (Ondansetron Hcl 4 Mg/2 Ml Vial) 4 mg IVPUSH Q8H PRN PRN Reason: Nausea and Vomiting Last Admin: 05/31/22 22:43 Dose: 4 mg Documented By: GRETA Pharmacy Consult (Consult Rx Perform Med Rec) 1 each MISCELLANE ONCE PRN PRN Reason: Consult order Pyridostigmine [place] (Pyridostigmine [place] 60 Mg Tablet) 60 mg PO TID [facility] Last Admin: 06/02/22 20:24 Dose: 60 mg Documented By: ALFONSO Senna (Sennosides 8.6 Mg Tablet) 17.2 mg PO BEDTIME PRN PRN Reason: Constipation Sodium Chloride (0.9 % Sodium Chloride Flush 3 Ml Syringe) 3 ml IVFLUSH QSHIFT [facility] Last Admin: 06/02/22 20:24 Dose: 3 ml Documented By: ALFONSO Labs CBC & Chem 7: 05/31/22 10:33 05/31/22 10:33 Assessment and Plan (1) NSVT (nonsustained ventricular tachycardia): Status: Acute (2) Myasthenia gravis: Status: Acute Plan 76-year-old male with a past medical history of CAD, CHF with EF of 25-30% status post AICD, myasthenia gravis, obesity, paraesophageal hernia, giant inguinal hernia presented to the hospital today with a chief complaint of nausea/vomiting/abdominal pain.? Noted to have following conditions: #Coffee-ground emesis: resolved. H/H has been stable GI has seen him with the following by Dr. Robison 1/ Recommend thoracic surgery consult for further assessment in case needs s urgical therapy 2/ would hold off on EGD, if really needs diagnostic testing then ba swallow and follow thru 3/ optimize cardiac and neurological status, given co morbidities, higher chance of surgical risk, has had plasmapharesis in past for MG. 4/ would keep on PPI e.g IV pantoprazole 40 mg BID -Will now transition to oral PPI #Nausea/vomiting/abdominal pain: ?CT abdomen showed moderate large hiatal hernia with half of the stomach around the top of the diaphragm. CT also showed large inguinal hernia containing sigmoid and descending colon.? Small infraumbilical midline hernia containing intraperitoneal fat. Thoracic surgery has been following and here is their and their last recommendation was removal NGT 06/01 and trial of liquid diet x 2 days, ending today, next step will be Full liquid diet and then outpatient follow up and ultimately surgery at later time #Ventricular arrythmia--had 37 beat of Vtach on 05/31, mag and K were normal. Cardiology recommended amio gtt, followed by 400 mg daily () x 10, then 200 mg daily thereafter #Elevated troponins:--trended down, cardiology recommends no further w/u #Hyperkalemia--most recent K is normal. #History of Myastenia G... continue meds and consider Neuro has seen him #History of CHF:? EF of 25-30% status post AICD currently euvolemic.? Repeat Echo 05/30 EF 20 to 25 #Mysthenia gravis, mestinon #History of myasthenia gravis:?home Azathioprine, Pyridostigmine on hold due to NPO status, #Constipation--stool softneer #Heart burn---Prilosec, Tums ? DVT prophylaxis: SCD boots Code status: Full code Need for inpatient: Management of hiatal Hernia with stomach in chest and high risk for incarceration and being closely monitored and may need surgery if symptoms not resolved conservatively Try to reach out to son and got the wrong number Quality Stroke Does the patient have a stroke diagnosis?: No VTE Prior VTE?: No VTE Risk Level:: Medical - moderate - high VTE Device Contraindication: N/A - Device Ordered VTE Drug Contraindication: Treatment Not Indicated
[2022-06-03] MEDS: Calcium Carbonate 750 MG TAB.CHEW PO (10:17)
--- NOTE | 2022-06-03 11:07 | MHC.CM.PN ---
Per ROUNDS discussion, Patient is NPO/will try full liquids today and not yet medically cleared for dc. Home vs STR pending PT eval is the goal and CM will continue to follow.
[2022-06-03] MEDS: Amiodarone HCL 200 MG TABLET 400 MG PO (11:11)
[2022-06-03] MEDS: Docusate Sodium 100 MG CAPSULE PO ×2 (11:11→20:49)
[2022-06-03] MEDS: Losartan Potassium 50 MG TABLET PO (11:11)
[2022-06-03] MEDS: Atorvastatin Calcium 80 MG TABLET PO (11:12)
[2022-06-03] MEDS: 0.9 % Sodium Chloride Flush 3 ML SYRINGE IVFLUSH ×3 (11:12→23:23)
[2022-06-03] MEDS: Isosorbide Mononitrate 30 MG TAB.ER.24H PO (11:12)
[2022-06-03] MEDS: Gabapentin 300 MG CAPSULE 600 MG PO ×3 (11:12→20:48)
--- NOTE | 2022-06-03 12:46 | P.CDIC_ITS ---
CDI Concurrent Query Documentation Clarification: PHYSICIAN'S DOCUMENTATION REQUEST Date of Query: 06/03/22 124 Patient Name: Antwan Mendoza Admit Date: 05/28/22 Dear Doctor, A review of the medical record indicates additional documentation may be needed. Please review below and update the documentation accordingly. Clinical Indicators: Risk Factors/Clinical Indicators/Treatments PN: History of CHF - EF 20-25% repeat Echo 05/30 EF 20-25%. Cardiology note 06/01 - not in fluid overload. Please provide further specificity regarding the most likely type and acuity of CHF you are evaluating, treating, or monitoring. Examples include: Type: * Systolic * Diastolic * Combined Systolic/Diastolic * Other ? please specify * Unable to determine Acuity: * Chronic * Acute on chronic * Unable to determine Use of terms such as suspected, likely, concern for, or probable (associated with a specific diagnosis that is being evaluated, monitored, or treated as if it exists) are acceptable and can be coded in the inpatient setting, when documented at the time of discharge. Thank you, Emily Hughes [facility], CDIS Extension: [phone] Please use your independent medical judgment in providing your response. THIS QUERY IS PART OF THE PERMANENT MEDICAL RECORD
--- NOTE | 2022-06-03 17:56 | P.PNTS_ITS ---
Subjective Subjective Date of Service: 06/03/22 Interval history: Patient was seen examined this afternoon. He has been tolerating a clear liquid diet well throughout over the weekend and denies any abdominal pain, nausea, vomiting, dysphagia or odynophagia. remaining 10 point review of systems negative at this time. Physical Exam Vital Signs: Vital Signs: Last Vital Signs Temp 97.2 F 06/03/22 15:31 Pulse 75 06/03/22 15:31 Resp 18 06/03/22 15:31 BP 111/57 L 06/03/22 15:31 Pulse Ox 94 06/03/22 15:31 O2 Del Method 06/03/22 15:31 O2 Flow Rate 3 05/31/22 11:35 BMI result Body Mass Index 26.4 Const: Other: General: AO X 3, no acute distress Resp:? CTA bilateral CVS: S1,S2,RRR GI: +BS, NT, no distention Skin: No rash Neuro:? motor grossly intact Psych: flat affect Procedures Date of Service Date of Service: 06/03/22 Progress Note: A&P Assessment and plan (1) Paraesophageal hernia: Status: Acute Assessment and Plan: Mr. Mendoza is a 76 year old male who presented with an approximately 2 week history of abdominal pain, nausea, retching, and the inability to tolerate much PO.? Found to have a large hiatal hernia with dilation of the stomach above and below the diaphragm. * NG tube was removed on Friday * he has been tolerating clear liquid diet over weekend. * advancing to full liquid diet today * if he tolerates full liquid diet he may be discharged home to self-care tomorrow with plans for follow-up with Dr. Babin in the thoracic Surgical office to plan for hiatal hernia surgical repair * NO carbonated beverages and NO straws. * If tolerates this patient will likely not require any surgical intervention this admission and can be discharged on a full liquid diet with instructions to increase to a soft diet in about a week.? If discharged, patient will followup with Dr. Babin as an outpatient to discuss surgical repair on an elective basis. * If patient cannot tolerate NGT removal or PO intake he will need hernia repair this admission. Time Spent With Patient Time: Total time spent is greater than 50% in coordination of care (as documented) at patient's floor/unit and/or counseling patient: Quality Stroke Does the patient have a stroke diagnosis?: No VTE Prior VTE?: No VTE Risk Level:: Medical - moderate - high VTE Device Contraindication: N/A - Device Ordered VTE Drug Contraindication: Treatment Not Indicated
[2022-06-03 18:52] LABS: Appearance Urine Clear; Color Urine Yellow; Glucose Urine UA Negative (Negative); Leukocyte Esterase Urine Negative (Negative); Nitrite Urine Negative (Negative); Urine Blood Negative (Negative); Urine Ketones Negative (Negative); Urine Protein Negative (Neg-Trace)
--- NOTE | 2022-06-03 19:21 | PC.NURSE ---
c/o burning sensation while urinating, reported not able to have BM ,c/o not able to urinate. Bladder scanned for [address] Villafuerte was notified, st.cath was done for 500 ml urine, urine sent to the lab. pt reported some relief after the st. cath
[2022-06-03] MEDS: Sennosides 8.6 MG TABLET 17.2 MG PO (20:48)
[2022-06-04 03:54] VITALS: BP 139/63; PULSE 63; RESP 20; TEMP 36.9; O2SAT 96
[2022-06-04] MEDS: Omeprazole 40 MG CAPSULE.DR PO ×2 (05:35→16:37)
[2022-06-04 07:38] VITALS: BP 134/66; PULSE 63; RESP 20; TEMP 37.1; O2SAT 95
[2022-06-04] MEDS: Atorvastatin Calcium 80 MG TABLET PO (08:57)
[2022-06-04] MEDS: Amiodarone HCL 200 MG TABLET 400 MG PO (08:57)
[2022-06-04] MEDS: Docusate Sodium 100 MG CAPSULE PO ×2 (08:57→20:57)
[2022-06-04] MEDS: Isosorbide Mononitrate 30 MG TAB.ER.24H PO (08:57)
[2022-06-04] MEDS: Gabapentin 300 MG CAPSULE 600 MG PO ×3 (08:57→20:57)
[2022-06-04] MEDS: Losartan Potassium 50 MG TABLET PO (08:57)
[2022-06-04] MEDS: 0.9 % Sodium Chloride Flush 3 ML SYRINGE IVFLUSH ×2 (08:58→16:40)
[2022-06-04 11:19] VITALS: BP 120/63; PULSE 70; RESP 20; TEMP 37.1; O2SAT 95
[2022-06-04] MEDS: bisacodyL 10 MG SUPP.RECT PR (11:27)
--- NOTE | 2022-06-04 13:18 | P.PNIM_ITS ---
Subjective Subjective Date of Service: 06/04/22 Interval History: ?f/u for abdominal pain, n/v, hiatal hernia, gib Review of Systems feels slowly better ,feels constipated,some reflux-bloating somewhat improving, passing gases but no bm's yet . also as per patient fullliquid diet ( trial he did not start yet) Physical Exam Vital Signs: Vital Signs: Last Vital Signs Temp 98.8 F 06/04/22 11:19 Pulse 70 06/04/22 11:19 Resp 20 06/04/22 11:19 BP 120/63 06/04/22 11:19 Pulse Ox 95 06/04/22 11:19 O2 Del Method 06/04/22 11:19 O2 Flow Rate 3 05/31/22 11:35 BMI result Body Mass Index 26.4 General: AO X 3, no acute distress Resp:? CTA bilateral CVS: S1,S2,RRR GI: +BS, NT, no distention rectal area mild pain and some stool smearing, afraid to pass stool. Skin: No rash Neuro:? motor grossly intact Psych: flat affect Objective Data Active Medications Acetaminophen (Acetaminophen 325 Mg Tablet) 650 mg PO Q6H PRN PRN Reason: Pain, Mild (Pain Scale 1-3) Last Admin: 06/02/22 07:34 Dose: 650 mg Documented By: ISHAAN Amiodarone HCl (Amiodarone Hcl 200 Mg Tablet) 400 mg PO DAILY [facility] Stop: 06/11/22 09:01 Last Admin: 06/04/22 08:57 Dose: 400 mg Documented By: GHADA Atorvastatin Calcium (Atorvastatin Calcium 80 Mg Tablet) 80 mg PO DAILY [facility] Last Admin: 06/04/22 08:57 Dose: 80 mg Documented By: GHADA Bisacodyl (Bisacodyl 10 Mg Supp.Rect) [address] DAILY [facility] Last Admin: 06/04/22 11:27 Dose: 10 mg Documented By: GHADA Calcium Carbonate (Calcium Carbonate 750 Mg Tab.Chew) 750 mg PO Q6H PRN PRN Reason: Indigestion Last Admin: 06/03/22 10:17 Dose: 750 mg Documented By: MERCEDES Docusate Sodium (Docusate Sodium 100 Mg Capsule) 100 mg PO BID [facility] Last Admin: 06/04/22 08:57 Dose: 100 mg Documented By: GHADA Gabapentin (Gabapentin 300 Mg Capsule) 600 mg PO TID [facility] Last Admin: 06/04/22 08:57 Dose: 600 mg Documented By: GHADA Hydromorphone HCl (Hydromorphone Hcl 0.5 Mg/0.5 Ml Syringe) 0.5 mg IVPUSH Q4H PRN; Protocol PRN Reason: Breakthrough Pain Last Admin: 06/03/22 12:43 Dose: 0.5 mg Documented By: MERCEDES Isosorbide Mononitrate (Isosorbide Mononitrate 30 Mg Tab.Er.24h) 30 mg PO DAILY [facility]; Protocol Last Admin: 06/04/22 08:57 Dose: 30 mg Documented By: GHADA Lidocaine HCl (Lidocaine Hcl Viscous 2 % 15 Ml Solution) 15 ml MUCOUS MEM Q3H PRN PRN Reason: Sore Throat Last Admin: 05/29/22 14:11 Dose: 15 ml Documented By: IVIS Losartan Potassium (Losartan Potassium 50 Mg Tablet) 50 mg PO DAILY [facility]; Protocol Last Admin: 06/04/22 08:57 Dose: 50 mg Documented By: GHADA Melatonin (Melatonin 3 Mg Tablet) 6 mg PO BEDTIME PRN PRN Reason: Insomnia Nitroglycerin (Nitroglycerin 0.4 Mg Tab.Subl) 0.4 mg SUBLINGUAL Q5M PRN PRN Reason: Chest Pain Omeprazole (Omeprazole 40 Mg Capsule.Dr) 40 mg PO BID@0630,1630 [facility] Last Admin: 06/04/22 05:35 Dose: 40 mg Documented By: ALFONSO Ondansetron HCl (Ondansetron Hcl 4 Mg/2 Ml Vial) 4 mg IVPUSH Q8H PRN PRN Reason: Nausea and Vomiting Last Admin: 05/31/22 22:43 Dose: 4 mg Documented By: GRETA Pharmacy Consult (Consult Rx Perform Med Rec) 1 each MISCELLANE ONCE PRN PRN Reason: Consult order Pyridostigmine [place] (Pyridostigmine [place] 60 Mg Tablet) 60 mg PO TID [facility] Last Admin: 06/04/22 09:02 Dose: Not Given Documented By: GHADA Non-Admin Reason: Patient Refused Senna (Sennosides 8.6 Mg Tablet) 17.2 mg PO BEDTIME PRN PRN Reason: Constipation Last Admin: 06/03/22 20:48 Dose: 17.2 mg Documented By: DERIAN Sodium Chloride (0.9 % Sodium Chloride Flush 3 Ml Syringe) 3 ml IVFLUSH QSHIFT [facility] Last Admin: 06/04/22 08:58 Dose: 3 ml Documented By: GHADA Labs CBC & Chem 7: 05/31/22 10:33 05/31/22 10:33 Labs: Laboratory Results - last 24 hr 06/03/22 18:42 Urine Color Yellow Urine Appearance Clear Urine pH 8.0 Ur Specific [place] 1.010 Urine Protein Negative Urine Glucose (UA) Negative Urine Ketones Negative Urine Blood Negative Urine Nitrite Negative Ur Leukocyte Esterase Negative Assessment and Plan (1) NSVT (nonsustained ventricular tachycardia): Status: Acute (2) Myasthenia gravis: Status: Acute Plan 76-year-old male with a past medical history of CAD, CHF with EF of 25-30% status post AICD, myasthenia gravis, obesity, paraesophageal hernia, giant in guinal hernia presented to the hospital today with a chief complaint of nausea/vomiting/abdominal pain.? Noted to have following conditions: #Coffee-ground emesis: resolved. H/H has been stable GI has seen him with the following by Dr. Robison 1/ Recommend thoracic surgery consult for further assessment in case needs surgical therapy 2/ would hold off on EGD, if really needs diagnostic testing then ba swallow and follow thru 3/ optimize cardiac and neurological status, given co morbidities, higher chance of surgical risk, has had plasmapharesis in past for MG. 4/ would keep on PPI e.g IV pantoprazole 40 mg BID now on oral PPI #Nausea/vomiting/abdominal pain: ?CT abdomen showed moderate large hiatal hernia with half of the stomach around the top of the diaphragm. CT also showed large inguinal hernia containing sigmoid and descending colon.? Small infraumbilical midline hernia containing intraperitoneal fat. Thoracic surgery has been following and here is their and their last recommen dation was removal NGT 06/01 and received trial of liquid diet x 2 days n ext step will be Full liquid diet spoke to surgery -if patient tolerates diet and has bm-then outpatient follow up and ultimately surgery at later time. in addition surgery advised biscodyl pR for now for constipation-if no bm ,then we will reach out to surgery if enema can be used ,so far recomended to avoid enema . #Ventricular arrythmia--had 37 beat of Vtach on 05/31, mag and K were normal. Cardiology recommended amio gtt, followed by 400 mg daily (D2/10) x 10, then 200 mg daily thereafter #Elevated troponins:--trended down, cardiology recommends no further w/u #Hyperkalemia--most recent K is normal. #History of Myastenia G... continue meds and consider Neuro has seen him #History of CHF:? EF of 25-30% status post AICD currently euvolemic.? Repeat Echo 05/30 EF 20 to 25 #Mysthenia gravis, mestinon #History of myasthenia gravis:?home Azathioprine, Pyridostigmine on hold due to NPO status, #Constipation--stool softneer #Heart burn---Prilosec, Tums ? DVT prophylaxis: SCD boots Code status: Full code Need for inpatient: Management of hiatal Hernia with stomach in chest and high risk for incarceration and being closely monitored and may need surgery if symptoms not resolved conservatively Try to reach out to son and got the wrong number Quality Stroke Does the patient have a stroke diagnosis?: No VTE Prior VTE?: No VTE Risk Level:: Medical - moderate - high VTE Device Contraindication: N/A - Device Ordered VTE Drug Contraindication: Treatment Not Indicated
[2022-06-04 15:03] VITALS: BP 100/59; PULSE 66; RESP 18; TEMP 36.7; O2SAT 91
--- NOTE | 2022-06-04 16:18 | PM.PNTS ---
Subjective Subjective Date of Service: 06/04/22 Interval history: Patient was seen and examined this afternoon. He states he has been tolerating his full liquid diet well with no complaints of dysphagia, odynophagia, nausea, vomiting or abdominal pain. He has been working with PT for ambulation. His only complaint is that he has some rectal pain attributed to sitting in bed for long periods of time as well as no bowel movement since admission. Physical Exam Vital Signs: Vital Signs: Last Vital Signs Temp 98.0 F 06/04/22 15:03 Pulse 66 06/04/22 15:03 Resp 18 06/04/22 15:03 BP 100/59 L 06/04/22 15:03 Pulse Ox 91 L 06/04/22 15:03 O2 Del Method 06/04/22 15:03 O2 Flow Rate 3 05/31/22 11:35 BMI result Body Mass Index 26.4 Const: Other: General: AO X 3, no acute distress Resp:? CTA bilateral CVS: S1,S2,RRR GI: +BS, NT, no distention Skin: No rash Neuro:? motor grossly intact Psych: flat affect Neuro: Other: He was alert and awake with normal spontaneity of speech fluency comprehension and affect. There was no ptosis. Visual mariscal were full. There was no focal weakness. Deep tendon reflexes were absent with flexor plantars speech was normal Procedures Date of Service Date of Service: 06/04/22 Progress Note: A&P Assessment and plan (1) Paraesophageal hernia: Status: Acute Assessment and Plan: Mr. Mendoza is a 76 year old male who presented with an approximately 2 week history of abdominal pain, nausea, retching, and the inability to tolerate much PO.? Found to have a large hiatal hernia with dilation of the stomach above and below the diaphragm. NG tube was removed on Friday he has been tolerating full liquid diet. You may advance your diet on your own in approximately 1 week to a soft mechanical diet which should include mushy vegetables, mashed potatoes, ground chicken and ground beef divided into 6 small frequent meals throughout the day. From a thoracic surgical point of view patient is okay for discharge once he performs a bowel movement. To perpetuate bowel movement enema may be used. FOLLOWUP: - You have an appointment with Dr. Babin at the [facility] office on Jun 14 @ 1030 am for a followup. [facility], 1st floor - Call the thoracic surgery office @ [facility]: [phone] you have any questions or concerns. Time Spent With Patient Time: Total time spent is greater than 50% in coordination of care (as documented) at patient's floor/unit and/or counseling patient: Quality Stroke Does the patient have a stroke diagnosis?: No VTE Prior VTE?: No VTE Risk Level:: Medical - moderate - high VTE Device Contraindication: N/A - Device Ordered VTE Drug Contraindication: Treatment Not Indicated
[2022-06-04] MEDS: HYDROmorphone HCl 0.5 MG/0.5 ML SYRINGE IVPUSH (16:40)
[2022-06-04 19:32] VITALS: BP 129/74; PULSE 78; RESP 16; TEMP 36.7; O2SAT 95
[2022-06-04] MEDS: Sennosides 8.6 MG TABLET 17.2 MG PO (20:57)
[2022-06-04 23:45] VITALS: BP 131/61; PULSE 73; RESP 20; TEMP 36.5; O2SAT 95
[2022-06-05] VITALS (7 sets, daily range): BP systolic 108–133; BP diastolic 56–64; PULSE 61–71; RESP 16–20; TEMP 36.4–37.2; O2SAT 95–96
[2022-06-05] MEDS: 0.9 % Sodium Chloride Flush 3 ML SYRINGE IVFLUSH ×3 (00:38→15:34)
[2022-06-05] MEDS: Omeprazole 40 MG CAPSULE.DR PO ×2 (05:30→15:34)
[2022-06-05] MEDS: Losartan Potassium 50 MG TABLET PO (08:26)
[2022-06-05] MEDS: Amiodarone HCL 200 MG TABLET 400 MG PO (08:26)
[2022-06-05] MEDS: Atorvastatin Calcium 80 MG TABLET PO (08:26)
[2022-06-05] MEDS: Gabapentin 300 MG CAPSULE 600 MG PO ×3 (08:26→19:38)
[2022-06-05] MEDS: Docusate Sodium 100 MG CAPSULE PO ×2 (08:26→19:38)
[2022-06-05] MEDS: bisacodyL 10 MG SUPP.RECT PR (08:27)
[2022-06-05] MEDS: Isosorbide Mononitrate 30 MG TAB.ER.24H PO (08:27)
--- NOTE | 2022-06-05 11:02 | MHC.CM.PN ---
Per ROUNDS discussion, Patient is not yet medically cleared for dc (awaiting BM); PT is recommending STR and per PT, Patient is refusing); home is the goal (Patient's insurance does not appear to have a VNA benefit). CM will follow.
[2022-06-05] MEDS: Calcium Carbonate 750 MG TAB.CHEW PO (15:34)
--- NOTE | 2022-06-05 16:40 | HO.PM.IMPN ---
Subjective Subjective Date of Service: 06/05/22 Interval History: no acute issues overnight. Passing gas but no bowel movement Review of Systems denies chest pain Denies shortness of breath Notes abdominal pain intermittently Denies fever chills Physical Exam Vital Signs: Vital Signs: Last Vital Signs Temp 97.5 F 06/05/22 15:34 Pulse 61 06/05/22 15:34 Resp 16 06/05/22 15:34 BP 126/58 L 06/05/22 15:34 Pulse Ox 96 06/05/22 15:34 O2 Del Method 06/05/22 15:34 O2 Flow Rate 3 05/31/22 11:35 BMI result Body Mass Index 26.4 Const: Other: no acute distress Resp: Other: clear to auscultation bilaterally no rales rhonchi or Cardio: Other: no S4; positive S1-S2; no S3 murmurs rubs or gallops GI: Other: soft nontender nondisten Extrem: Other: no edema bilaterally Objective Data Active Medications Acetaminophen (Acetaminophen 325 Mg Tablet) 650 mg PO Q6H PRN PRN Reason: Pain, Mild (Pain Scale 1-3) Last Admin: 06/02/22 07:34 Dose: 650 mg Documented By: ISHAAN Amiodarone HCl (Amiodarone Hcl 200 Mg Tablet) 400 mg PO DAILY [facility] Stop: 06/11/22 09:01 Last Admin: 06/05/22 08:26 Dose: 400 mg Documented By: GHADA Atorvastatin Calcium (Atorvastatin Calcium 80 Mg Tablet) 80 mg PO DAILY [facility] Last Admin: 06/05/22 08:26 Dose: 80 mg Documented By: GHADA Bisacodyl (Bisacodyl 10 Mg Supp.Rect) 10 mg [place] DAILY [facility] Last Admin: 06/05/22 08:27 Dose: 10 mg Documented By: GHADA Calcium Carbonate (Calcium Carbonate 750 Mg Tab.Chew) 750 mg PO Q6H PRN PRN Reason: Indigestion Last Admin: 06/05/22 15:34 Dose: 750 mg Documented By: GHADA Docusate Sodium (Docusate Sodium 100 Mg Capsule) 100 mg PO BID [facility] Last Admin: 06/05/22 08:26 Dose: 100 mg Documented By: GHADA Gabapentin (Gabapentin 300 Mg Capsule) 600 mg PO TID [facility] Last Admin: 06/05/22 15:34 Dose: 600 mg Documented By: GHADA Hydromorphone HCl (Hydromorphone Hcl 0.5 Mg/0.5 Ml Syringe) 0.5 mg IVPUSH Q4H PRN; Protocol PRN Reason: Breakthrough Pain Last Admin: 06/04/22 16:40 Dose: 0.5 mg Documented By: GHADA Isosorbide Mononitrate (Isosorbide Mononitrate 30 Mg Tab.Er.24h) 30 mg PO DAILY [facility]; Protocol Last Admin: 06/05/22 08:27 Dose: 30 mg Documented By: GHADA Lidocaine HCl (Lidocaine Hcl Viscous 2 % 15 Ml Solution) 15 ml MUCOUS MEM Q3H PRN PRN Reason: Sore Throat Last Admin: 05/29/22 14:11 Dose: 15 ml Documented By: IVIS Losartan Potassium (Losartan Potassium 50 Mg Tablet) 50 mg PO DAILY [facility]; Protocol Last Admin: 06/05/22 08:26 Dose: 50 mg Documented By: GHADA Melatonin (Melatonin 3 Mg Tablet) 6 mg PO BEDTIME PRN PRN Reason: Insomnia Nitroglycerin (Nitroglycerin 0.4 Mg Tab.Subl) 0.4 mg SUBLINGUAL Q5M PRN PRN Reason: Chest Pain Omeprazole (Omeprazole 40 Mg Capsule.Dr) 40 mg PO BID@0630,1630 [facility] Last Admin: 06/05/22 15:34 Dose: 40 mg Documented By: GHADA Ondansetron HCl (Ondansetron Hcl 4 Mg/2 Ml Vial) 4 mg IVPUSH Q8H PRN PRN Reason: Nausea and Vomiting Last Admin: 05/31/22 22:43 Dose: 4 mg Documented By: GRETA Pharmacy Consult (Consult Rx Perform Med Rec) 1 each MISCELLANE ONCE PRN PRN Reason: Consult order Pyridostigmine [place] (Pyridostigmine [place] 60 Mg Tablet) 60 mg PO TID [facility] Last Admin: 06/05/22 15:34 Dose: Not Given Documented By: GHADA Non-Admin Reason: Patient Refused Senna (Sennosides 8.6 Mg Tablet) 17.2 mg PO BEDTIME PRN PRN Reason: Constipation Last Admin: 06/04/22 20:57 Dose: 17.2 mg Documented By: DERIAN Sodium Chloride (0.9 % Sodium Chloride Flush 3 Ml Syringe) 3 ml IVFLUSH QSHIFT [facility] Last Admin: 06/05/22 15:34 Dose: 3 ml Documented By: GHADA Labs CBC & Chem 7: 05/31/22 10:33 05/31/22 10:33 Assessment and Plan (1) Acute GI bleeding: Status: Acute (2) NSVT (nonsustained ventricular tachycardia): Status: Acute (3) Myasthenia gravis: Status: Acute Plan 76-year-old male with a past medical history of CAD, CHF with EF of 25-30% status post AICD, myasthenia gravis, obesity, paraesophageal hernia, giant inguinal hernia presented to the hospital today with a chief complaint of nausea/vomiting/abdominal pain.? 1. GI bleed (in the backdrop of large hiatal hernia) - no active bleeding - IV Protonix b.i.d. - continue with aggressive bowel regimen 2.NSVT - continue with oral amiodarone load - continue on telemetry - patient continues to be asymptomatic with these runs 3. Myasthenia gravis - continue outpatient therapies DVT prophylaxis: SCD boots Code status: Full code requires ongoing hospitalization for IV PPI continued workup of abdominal pain Quality Stroke Does the patient have a stroke diagnosis?: No VTE Prior VTE?: No VTE Risk Level:: Medical - moderate - high VTE Device Contraindication: N/A - Device Ordered VTE Drug Contraindication: Treatment Not Indicated
[2022-06-06 04:00] VITALS: BP 107/53; PULSE 66; RESP 18; TEMP 37.1; O2SAT 96
[2022-06-06] MEDS: Omeprazole 40 MG CAPSULE.DR PO ×2 (06:31→16:00)
[2022-06-06 07:18] VITALS: BP 129/79; PULSE 71; RESP 17; TEMP 37.1; O2SAT 95
[2022-06-06] MEDS: Isosorbide Mononitrate 30 MG TAB.ER.24H PO (10:50)
[2022-06-06] MEDS: Docusate Sodium 100 MG CAPSULE PO ×2 (10:50→19:34)
[2022-06-06] MEDS: 0.9 % Sodium Chloride Flush 3 ML SYRINGE IVFLUSH (10:50)
[2022-06-06] MEDS: Losartan Potassium 50 MG TABLET PO (10:50)
[2022-06-06] MEDS: Atorvastatin Calcium 80 MG TABLET PO (10:51)
[2022-06-06] MEDS: Amiodarone HCL 200 MG TABLET 400 MG PO (10:51)
[2022-06-06] MEDS: Gabapentin 300 MG CAPSULE 600 MG PO ×3 (10:51→19:34)
[2022-06-06] MEDS: bisacodyL 10 MG SUPP.RECT PR (11:06)
[2022-06-06 11:17] VITALS: BP 124/59; PULSE 86; RESP 18; TEMP 37.1; O2SAT 95
--- NOTE | 2022-06-06 15:17 | HO.PM.IMPN ---
Subjective Subjective Date of Service: 06/06/22 Interval History: notes improvement today after BM Review of Systems denies chest pain Denies shortness of breath Notes abdominal pain intermittently Denies fever chills Physical Exam Vital Signs: Vital Signs: Last Vital Signs Temp 98.7 F 06/06/22 11:17 Pulse 86 06/06/22 11:17 Resp 18 06/06/22 11:17 BP 124/59 L 06/06/22 11:17 Pulse Ox 95 06/06/22 11:17 O2 Del Method 06/06/22 11:17 O2 Flow Rate 3 05/31/22 11:35 BMI result Body Mass Index 26.4 Const: Other: no acute distress Resp: Other: clear to auscultation bilaterally no rales rhonchi or Cardio: Other: no S4; positive S1-S2; no S3 murmurs rubs or gallops GI: Other: soft nontender nondisten Extrem: Other: no edema bilaterally Objective Data Active Medications Acetaminophen (Acetaminophen 325 Mg Tablet) 650 mg PO Q6H PRN PRN Reason: Pain, Mild (Pain Scale 1-3) Last Admin: 06/02/22 07:34 Dose: 650 mg Documented By: ISHAAN Amiodarone HCl (Amiodarone Hcl 200 Mg Tablet) 400 mg PO DAILY [facility] Stop: 06/11/22 09:01 Last Admin: 06/06/22 10:51 Dose: 400 mg Documented By: THIAGO Atorvastatin Calcium (Atorvastatin Calcium 80 Mg Tablet) 80 mg PO DAILY [facility] Last Admin: 06/06/22 10:51 Dose: 80 mg Documented By: THIAGO Bisacodyl (Bisacodyl 10 Mg Supp.Rect) 10 mg [place] DAILY [facility] Last Admin: 06/06/22 11:06 Dose: 10 mg Documented By: THIAGO Calcium Carbonate (Calcium Carbonate 750 Mg Tab.Chew) 750 mg PO Q6H PRN PRN Reason: Indigestion Last Admin: 06/05/22 15:34 Dose: 750 mg Documented By: GHADA Docusate Sodium (Docusate Sodium 100 Mg Capsule) 100 mg PO BID [facility] Last Admin: 06/06/22 10:50 Dose: 100 mg Documented By: THIAGO Gabapentin (Gabapentin 300 Mg Capsule) 600 mg PO TID [facility] Last Admin: 06/06/22 10:51 Dose: 600 mg Documented By: THIAGO Hydromorphone HCl (Hydromorphone Hcl 0.5 Mg/0.5 Ml Syringe) 0.5 mg IVPUSH Q4H PRN; Protocol PRN Reason: Breakthrough Pain Last Admin: 06/04/22 16:40 Dose: 0.5 mg Documented By: GHADA Isosorbide Mononitrate (Isosorbide Mononitrate 30 Mg Tab.Er.24h) 30 mg PO DAILY [facility]; Protocol Last Admin: 06/06/22 10:50 Dose: 30 mg Documented By: THIAGO Lidocaine HCl (Lidocaine Hcl Viscous 2 % 15 Ml Solution) 15 ml MUCOUS MEM Q3H PRN PRN Reason: Sore Throat Last Admin: 05/29/22 14:11 Dose: 15 ml Documented By: IVIS Losartan Potassium (Losartan Potassium 50 Mg Tablet) 50 mg PO DAILY [facility]; Protocol Last Admin: 06/06/22 10:50 Dose: 50 mg Documented By: THIAGO Melatonin (Melatonin 3 Mg Tablet) 6 mg PO BEDTIME PRN PRN Reason: Insomnia Nitroglycerin (Nitroglycerin 0.4 Mg Tab.Subl) 0.4 mg SUBLINGUAL Q5M PRN PRN Reason: Chest Pain Omeprazole (Omeprazole 40 Mg Capsule.Dr) 40 mg PO BID@0630,1630 [facility] Last Admin: 06/06/22 06:31 Dose: 40 mg Documented By: GRETA Ondansetron HCl (Ondansetron Hcl 4 Mg/2 Ml Vial) 4 mg IVPUSH Q8H PRN PRN Reason: Nausea and Vomiting Last Admin: 05/31/22 22:43 Dose: 4 mg Documented By: GRETA Pharmacy Consult (Consult Rx Perform Med Rec) 1 each MISCELLANE ONCE PRN PRN Reason: Consult order Pyridostigmine [place] (Pyridostigmine [place] 60 Mg Tablet) 60 mg PO TID [facility] Last Admin: 06/06/22 11:02 Dose: Not Given Documented By: THIAGO Non-Admin Reason: Patient Refused Senna (Sennosides 8.6 Mg Tablet) 17.2 mg PO BEDTIME PRN PRN Reason: Constipation Last Admin: 06/04/22 20:57 Dose: 17.2 mg Documented By: DERIAN Sodium Chloride (0.9 % Sodium Chloride Flush 3 Ml Syringe) 3 ml IVFLUSH QSHIFT [facility] Last Admin: 06/06/22 10:50 Dose: 3 ml Documented By: THIAGO Labs CBC & Chem 7: 05/31/22 10:33 05/31/22 10:33 Assessment and Plan (1) Paraesophageal hernia: Status: Acute (2) NSVT (nonsustained ventricular tachycardia): Status: Acute (3) Myasthenia gravis: Status: Acute Plan 76-year-old male with a past medical history of CAD, CHF with EF of 25-30% status post AICD, myasthenia gravis, obesity, paraesophageal hernia, giant inguinal hernia presented to the hospital today with a chief complaint of nausea/vomiting/abdominal pain.? 1. GI bleed (in the backdrop of large hiatal hernia) - no active bleeding.... improved today after BM - IV Protonix b.i.d.... hopefully switch to p.o. in a.m. - continue with aggressive bowel regimen 2.NSVT - continue with oral amiodarone load - continue on telemetry - patient continues to be asymptomatic with these runs 3. Myasthenia gravis - continue outpatient therapies DVT prophylaxis: SCD boots Code status: Full code requires ongoing hospitalization for IV PPI continued workup of abdominal pain Quality Stroke Does the patient have a stroke diagnosis?: No VTE Prior VTE?: No VTE Risk Level:: Medical - moderate - high VTE Device Contraindication: N/A - Device Ordered VTE Drug Contraindication: Treatment Not Indicated
[2022-06-06 16:00] VITALS: BP 97/50; PULSE 67; RESP 19; TEMP 37.1; O2SAT 94
[2022-06-06 20:00] VITALS: BP 95/55; PULSE 76; RESP 18; TEMP 36.6; O2SAT 96
[2022-06-06 23:31] VITALS: BP 108/57; PULSE 63; RESP 15; TEMP 36.8; O2SAT 97
[2022-06-07 03:57] VITALS: BP 127/60; PULSE 71; RESP 16; TEMP 36.6; O2SAT 96
[2022-06-07] MEDS: Omeprazole 40 MG CAPSULE.DR PO (04:45)
[2022-06-07] MEDS: 0.9 % Sodium Chloride Flush 3 ML SYRINGE IVFLUSH ×2 (05:45→08:42)
[2022-06-07 06:38] LABS: MANUAL DIFF FLAG NO
[2022-06-07 06:44] LABS: Basophils Absolute Auto 0.1 X10*3/uL (0.0-0.2); Basophils Percent Auto 0.8 % (0-2); Eosinophils Absolute Auto 0.3 X10*3/uL (0.0-0.4); Eosinophils Percent Auto 4.3 % (0-4); Hematocrit 36.6 % (42.0-52.0); Hemoglobin 12.6 g/dl (14.0-18.0); Imm Gran Abs Auto 0.05 X10*3/uL (0.00-0.03); Imm Gran Pct Auto 0.8 % (0.0-0.4); Lymphocytes Absolute Auto 0.6 X10*3/uL (1.2-4.9); Lymphocytes Percent Auto 10.4 % (20-40); Mean Corpuscular HGB Conc 34.4 g/dl (31.0-36.0); Mean Corpuscular Hemoglobin 31.2 pg (27.0-33.0); Mean Corpuscular Volume 90.6 fL (80.0-98.0); Mean Platelet Volume 9.5 fL (9.4-12.4); Monocytes Absolute Auto 1.1 X10*3/uL (0.1-1.2); Monocytes Percent Auto 17.5 % (2-11); Neutrophils Percent Auto 66.2 % (45-73); Platelet Count 189 X10*3/uL (160-400); Red Blood Count 4.04 X10*6/uL (4.60-5.80); Red Cell Distribution Width 14.2 % (11.0-16.0); White Blood Count 6.1 X10*3/uL (4.8-10.8)
[2022-06-07 07:03] LABS: Alanine Aminotransferase 20 U/L (0-40); Albumin Level 2.9 g/dL (3.5-5.0); Alkaline Phosphatase 96 U/L (39-117); Anion Gap 13 (12-20); Aspartate Amino Transferase 27 U/L (5-37); Bilirubin Total 1.3 mg/dL (0.0-1.0); Blood Urea Nitrogen 8 mg/dL (9-16); Calcium 7.9 mg/dL (8.4-10.2); Carbon Dioxide 25 mmol/L (22-29); Chloride 102 mmol/L (96-108); Estimated Glomerular Filt Rate > 60; Glucose Fasting 111 mg/dL (60-99); Potassium 4.2 mmol/L (3.3-5.1); Sodium 136 mmol/L (135-145)
[2022-06-07 07:21] VITALS: BP 147/69; PULSE 69; RESP 20; TEMP 36.8; O2SAT 94
[2022-06-07] MEDS: Isosorbide Mononitrate 30 MG TAB.ER.24H PO (08:42)
[2022-06-07] MEDS: Atorvastatin Calcium 80 MG TABLET PO (08:43)
[2022-06-07] MEDS: Gabapentin 300 MG CAPSULE 600 MG PO (08:43)
[2022-06-07] MEDS: Amiodarone HCL 200 MG TABLET 400 MG PO (08:43)
[2022-06-07] MEDS: Docusate Sodium 100 MG CAPSULE PO (08:43)
[2022-06-07] MEDS: Losartan Potassium 50 MG TABLET PO (08:43)
[2022-06-07 09:37] VITALS: BP 147/69; PULSE 69; O2SAT 94
--- NOTE | 2022-06-07 11:21 | MHC.CM.PN ---
Per ROUNDS discussion, Patient will be medically cleared for dc to home today, self care (Patient adamantly refuses STR and/or home services) Patient will dc today at 12:30 PM via [facility] van services(MD *& RN aware). IMM addressed with Patient at bedside and original was given to him and a copy has been placed on the chart.
--- NOTE | 2022-06-07 11:36 | P.DS_ITS ---
DS: Providers Provider Date of Service: 06/07/22 Date of admission: 05/28/22 22:10 Date of discharge: 06/07/22 Primary care physician: Levi Gonzalez PA-C Consults: 05/28/22 22:10 Consult to Cardiology Routine Consulting Provider: Renny Pace Reason for consultation: elevated troponins 05/28/22 22:12 Consult to Gastroenterology Routine Consulting Provider: Michael Robison Reason for consultation: Coffee ground emesis 05/29/22 03:09 Consult to General Surgery Routine Consulting Provider: Boby Diehl Reason for consultation: abd pain; hx hernia; 05/29/22 08:56 Consult to Thoracic Surgery Routine Consulting Provider: Arian Babin Reason for consultation: Moderately large hiatal hernia with half of the stomach are on top of the d Has provider been notified: No 05/30/22 10:19 Consult to Neurology Routine Consulting Provider: [facility] Reason for consultation: Myasthenia ? option for IV meds, not able to take PO mestinon, imuran Has provider been notified: No DS: Diagnosis Discharge Diagnosis (1) Paraesophageal hernia: Status: Acute (2) NSVT (nonsustained ventricular tachycardia): Status: Acute (3) Myasthenia gravis: Status: Acute DS: Summary Hospital Course Hospital Course: 76-year-old male with a past medical history of CAD, CHF with EF of 25-30% status post AICD, myasthenia gravis, obesity, paraesophageal hernia, giant paraesophageal hernia presented to the hospital today with a chief complaint of nausea/vomiting/abdominal pain.? Patient mentions that for the past 2 weeks he has been having nausea vomiting and poor oral intake.? Also complains of abdominal pain.? Denies any concerns for food poisoning.? Mentions that his abdominal pain is located more so in the epigastrium.? Had multiple episodes of nausea and vomiting.? Today he had a large coffee-ground vomitus.? Denies any melena or bright red blood per rectum.? New denies any chest pain, shortness of breath, fever chills, cough or urinary symptoms.? ER course: Per ER team patient had large hiatal hernia; status post NG placement with draining 1600 cc of coffee-ground emesis.? Guaiac positive.? Hemoglobin stable.? Patient stool guaiac was also positive.? Also had elevated troponins.? But plate you had.? EKG nonischemic. Hospital [facility] Admitted kept NPO on IV PPI. Seen in consultation by GI who recommended thoracic surgery consult. Thoracic surgery agreed with NG decompression followed by clear liquid diet. He tolerated his diet well and instruction for advancing diet were documented by thoracic surgery. Well admitted he developed several episodes of an SVT for which Cardiology was consulted. He was started on a oral amiodarone loading can follow-up with Cardiology as an outpatient. Physical therapy screen initially recommended short-term rehab however at this time patient is insistent on returning to home and declines services. He will follow-up with PCP to 3 weeks and thoracic surgery as outlined Time Spent with Patient Time attestation: Total time spent providing and/or coordinating discharge services: Discharge coordination time: Greater than 30 minutes Quality: Safe Use of Opioids Does Pt have an Active Cancer Diagnosis on the Problem List?: No Quality: Stroke Does the patient have a stroke diagnosis?: No Physical Exam Vital Signs: Vital Signs: Last Vital Signs Temp 98.3 F 06/07/22 07:21 Pulse 69 06/07/22 09:37 Resp 20 06/07/22 07:21 BP 147/69 H 06/07/22 09:37 Pulse Ox 94 06/07/22 09:37 O2 Del Method 06/07/22 07:21 O2 Flow Rate 3 05/31/22 11:35 BMI result Body Mass Index 26.4 Const: Other: no acute distress Resp: Other: clear to auscultation bilaterally no rales rhonchi or Cardio: Other: no S4; positive S1-S2; no S3 murmurs rubs or gallops GI: Other: soft nontender nondisten Extrem: Other: no edema bilaterally DS: Data Data Completed and Pending Labs on day of discharge: Laboratory Results - last 24 hr 06/07/22 06/07/22 06:11 06:11 WBC 6.1 RBC 4.04 L Hgb 12.6 L Hct 36.6 L MCV 90.6 MCH 31.2 MCHC 34.4 RDW 14.2 Plt Count 189 MPV 9.5 Immature Gran % (Auto) 0.8 H Neut % (Auto) 66.2 Lymph % (Auto) 10.4 L [place] % (Auto) 17.5 H Eos % (Auto) 4.3 H Baso % (Auto) 0.8 Lymph # (Auto) 0.6 L [place] # (Auto) 1.1 Eos # (Auto) 0.3 Baso # (Auto) 0.1 Abs Immat Gran (auto) 0.05 H Absolute Neuts (auto) 4.0 Absolute Nucleated RBC 0.000 Nucleated RBC % (auto) 0.0 Sodium 136 Potassium 4.2 Chloride 102 Carbon Dioxide 25 Anion Gap 13 BUN 8 L D Creatinine 0.93 Estim Creat Clear Calc 73.0 Estimated GFR > 60 Fasting Glucose 111 H Calcium 7.9 L Total Bilirubin 1.3 H AST 27 D ALT 20 Alkaline Phosphatase 96 Total Protein 5.0 L D Albumin 2.9 L D Discharge Plan Discharge Patient Disposition: Home, Self-Care Discharge Diagnosis: acute GI bleed Referrals: Levi Gonzalez PA-C [Primary Care Provider] - 1 Week Discharge Medications: New omeprazole 40 mg Capsule,Delayed Release(Dr/Ec) 40 mg PO BID@0630,1630 Qty: 60 0RF amiodarone 200 mg tablet See Rx Instructions .ROUTE .COMPLEX Qty: 34 0RF Rx Instructions: 200 mg orally: 2 tabs daily for 4 days; then 1 tab daily Continued losartan 50 mg tablet 1 tab PO DAILY atorvastatin 80 mg tablet 1 tab PO DAILY isosorbide mononitrate 30 mg tablet extended release 24 hr 1 tab PO DAILY azathioprine 50 mg tablet 2 tab PO DAILY nitroglycerin 0.4 mg tablet, sublingual 1 tab sublingual Q5M PRN (Reason: Chest Pain) gabapentin 300 mg capsule 2 cap PO TID carvedilol 12.5 mg tablet 1 tab PO BID clindamycin HCl 300 mg capsule 1 cap PO TID pyridostigmine bromide 60 mg tablet 1 tab PO TID hydrochlorothiazide 12.5 mg capsule 1 cap PO DAILY Discharge Orders: Discharge Order (Routine); Ordered 06/07/22 Ordered By: Bc Avelar Activity on Discharge: As tolerated Stand Alone Forms: Patient Portal Discharge page Care Plan Goals: You may advance your diet on your own in approximately 1 week to a soft mechanical diet which should include mushy vegetables, mashed potatoes, ground chicken and ground beef divided into 6 small frequent meals throughout the day Health Concerns: take the amiodarone and Prilosec as prescribed. These prescriptions have been sent [facility] Plan of Treatment: You have an appointment with Dr. Babin at the [facility] office on Jun 14 @ 1030 am for a followup. [facility], 1st floor Call the thoracic surgery office @ [place] [facility]: [phone] you have any questions or concerns. Assessment: see discharge summary
== END 2022-06-07 12:30 | disposition home or self-care (01) | DRG 378 ==
LOC: HO.ED 19:16 → HO.EDOVER 22:19 → HO.IMC 05-29 22:42
PROVIDERS: Internal Medicine; Surgery; Admitting Provider Hospitalist; Emergency Provider Internal Medicine; PCP Physician Assistant; Visit Provider Hospitalist
DX: K25.4 Chronic or unspecified gastric ulcer with hemorrhage (principal); I47.1 Supraventricular tachycardia; K44.9 Diaphragmatic hernia without obstruction or gangrene; I25.2 Old myocardial infarction; E87.5 Hyperkalemia; I25.5 Ischemic cardiomyopathy; I25.10 Atherosclerotic heart disease of native coronary artery without angina pectoris; G70.00 Myasthenia gravis without (acute) exacerbation; Z20.822 Contact with and (suspected) exposure to COVID-19; Z95.810 Presence of automatic (implantable) cardiac defibrillator; Z88.0 Allergy status to penicillin; Z79.899 Other long term (current) drug therapy
CPT/HCPCS: 36415; 71045; 74176; 80048; 80053; 81001; 81003; 82271; 82272; 83036; 83605; 83690; 83735; 84134; 84153; 84484; 85025; 85027; 85610; 87635; 93005; 93306; 96361; 96374; 96375; 96376; 97116; 97162; 97166; 99285; J0282; J1170; J2270; J2405; Q9957

== ENCOUNTER → 2022-06-14 10:07 | Outpatient (BNVA) | payer OTHER, SELFPAY | PROVIDERS: PCP Internal Medicine; Visit Provider Surgery | DX: K44.0 Diaphragmatic hernia with obstruction, without gangrene (principal) | CPT/HCPCS: 99212 ==

== ENCOUNTER → 2022-06-28 14:04 | Outpatient (BNVA) | payer OTHER, SELFPAY | PROVIDERS: PCP Internal Medicine; Visit Provider Internal Medicine | DX: K44.0 Diaphragmatic hernia with obstruction, without gangrene (principal); I42.9 Cardiomyopathy, unspecified; G70.00 Myasthenia gravis without (acute) exacerbation; I25.10 Atherosclerotic heart disease of native coronary artery without angina pectoris | CPT/HCPCS: 99212 ==

== ENCOUNTER → 2022-07-12 14:50 | Outpatient (BNVA) | payer OTHER, SELFPAY | PROVIDERS: PCP Internal Medicine; Visit Provider Internal Medicine | DX: K44.0 Diaphragmatic hernia with obstruction, without gangrene (principal); I42.9 Cardiomyopathy, unspecified; G70.00 Myasthenia gravis without (acute) exacerbation; I25.10 Atherosclerotic heart disease of native coronary artery without angina pectoris | CPT/HCPCS: 99212 ==

== ENCOUNTER 2022-08-02 09:05 | Outpatient (REF) | payer OTHER, SELFPAY ==
--- NOTE | ~2022-08-02 | FL_ITS ---
PROCEDURE: FL BARIUM SWALLOW CLINICAL INFORMATION: Diaphragmatic hernia with obstruction. COMPARISON: None TECHNIQUE: Barium swallow examination is performed using fluoroscopic evaluation in addition to multiple fluoroscopic spot views. The patient is imaged both upright and prone and using both thick and thin sulfate along with effervescent granules. Fluoroscopy time: 1.8 seconds DAP: 14.574 Gy-cm2 Images: 59 FINDINGS: Following oral administration of thick barium, barium-coated turkey in upright view there is normal propagation of bolus from the oral cavity through the pharynx, esophagus into stomach without any evidence of obstruction or narrowing. Trace laryngeal penetration was seen. On placing patient supine and prone lying there is gastric rotation along its long axis suggestive of organoaxial volvulus but no obstruction seen. Mild gastroesophageal reflux seen. 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 Trace laryngeal penetration.
== END 2022-08-02 09:06 | disposition home or self-care (01) ==
LOC: HO.XRAY 09:05
PROVIDERS: PCP Internal Medicine; Visit Provider Surgery
DX: K44.0 Diaphragmatic hernia with obstruction, without gangrene (principal)
CPT/HCPCS: 74220